=== PATIENT | female | born 1960 | race Hispanic/Latino ===

== ENCOUNTER → 2018-05-26 | Outpatient (CLI) | payer OTHER ==
[~2018-05-26] MED LIST: FLAGYL250 MG PO; HUMALOG100 UNITS/ SQ; JANUMET 50-1,01 EACH PO; LEVAQUIN500 MG PO; LEVEMIR100 UNIT/1 SQ; VASOTEC5 MG PO
== END ==
LOC: MAMMO 08:18
PROVIDERS: ATTEND Internal Medicine
DX: Z12.31 Encounter for screening mammogram for malignant neoplasm of breast (principal)
CPT/HCPCS: 77067

== ENCOUNTER → 2018-07-05 | Outpatient (CLI) | payer OTHER ==
--- NOTE | 2018-07-06 08:46 | Diagnostic Imaging Report ---
#[id number] - MGDXRT #UNILATERAL RIGHT DIGITAL DIAGNOSTIC MAMMOGRAM WITH SPOT COMPRESSION: 07/05/2018 Comparison is made to exam dated: 05/26/2018 mammogram - [facility]. Current study contains 3 films. The calcifications previously described are probably benign. There are scattered fibroglandular elements in the right breast. No significant masses or other findings are seen in the breast. IMPRESSION: PROBABLY BENIGN A follow-up mammogram in 6 months is recommended to demonstrate stability. The patient has been or will be notified of the results. Chai Cruz Jr., D.O. cw/:07/05/2018 16:28:07 [place] Steward: Karmen RODRIGUEZ(R)(M), [facility] letter sent: Followup Recommended Mammogram BI-RADS: 3 Probably benign
== END ==
LOC: MAMMO 09:51
PROVIDERS: ATTEND Internal Medicine
DX: N64.59 Other signs and symptoms in breast (principal)

== ENCOUNTER → 2018-11-21 | Outpatient (CLI) | payer OTHER ==
--- NOTE | 2018-11-21 16:34 | Diagnostic Imaging Report ---
Exam: Bone mineral density study. History: Osteopenia. Comparison: None Discussion: Evaluation of the left hip, and lumbar spine was performed utilizing DEXA Hologic bone densitometer. The study is technically adequate. Left hip total bone mineral density: 0.944gm/cm2, T-score is -0.1, Z-score is 0.7. Left hip femoral neck bone mineral density: 0.833gm/cm2, T-score is -0.3, Z-score is 0.8. Lumbar spine total bone mineral density:0.949gm/cm2, T-score is-0.9, Z-score is 0.4. Impression: 1. Normal bone mineral density of the left hip, fracture risk is not increased. 2. Normal bone mineral density of the lumbar spine, fracture risk is not increased. Least significant change (LSC) for bone mineral density as provided by acute care clinical nurse specialist is 0.023 g/cm2 for lumbar spine and 0.027 g/cm2 for total hip. 10 -year fracture risk per WHO Fracture Risk Assessment Tool (FRAX) for: Not reported because all T-scores at or above -1.0 The patient's fracture risk is compared to an age-matched control. Medical evaluation for secondary causes of low bone bone mineral density may be appropriate. Correlate clinically for the necessity and timing of the next bone mineral density study. Signed by: Dr. Dani Ruvalcaba M.D. on 11/21/2018 4:30 PM
== END ==
LOC: MAMMO 12:37
PROVIDERS: ATTEND Family Medicine
DX: Z12.31 Encounter for screening mammogram for malignant neoplasm of breast (principal); Z78.0 Asymptomatic menopausal state
CPT/HCPCS: 77080

== ENCOUNTER → 2019-01-23 | Outpatient (CLI) | payer OTHER | LOC: MAMMO 12:10 | PROVIDERS: ATTEND Family Medicine | DX: Z12.31 Encounter for screening mammogram for malignant neoplasm of breast (principal) | CPT/HCPCS: 77067 ==

== ENCOUNTER 2020-09-06 11:33 | Inpatient (IN) | payer OTHER, SELFPAY ==
[~2020-09-06] VITALS: Ht 149.9 cm; Wt 57.5 kg
[2020-09-06 12:01] LABS: BASOPHILS % 0.2 % (0.0-1.0); EOSINOPHILS % 0.1 % (0.0-6.0); HEMATOCRIT 43.6 % (34.2-44.1); HEMOGLOBIN 14.4 g/dL (12.0-16.0); LYMPHOCYTES # (AUTO) 0.8 (1.0-3.2); MEAN CORPUSCULAR HEMOGLOBIN 28.6 pg (28-32); MEAN CORPUSCULAR VOLUME 86.7 fL (81-99); MONOCYTES # (AUTO) 0.7 (0.2-0.8); MONOCYTES % 5.4 % (4.4-11.3); PLATELET COUNT 176 x10e3/uL (140-360); RED BLOOD COUNT 5.03 x10e6/uL (3.6-5.1); RED CELL DISTRIBUTION WIDTH 14.6 % (11.7-14.4)
[2020-09-06 12:23] LABS: ALANINE AMINOTRANSFERASE 32 IU/L (0-55); ALBUMIN 3.5 g/dL (3.5-5.0); ALBUMIN/GLOBULIN RATIO 0.7 (0.8-2.0); ALKALINE PHOSPHATASE 131 IU/L (40-150); ANION GAP 21.9 mmol/L (8-16); BLOOD UREA NITROGEN 29 mg/dL (7-26); BUN/CREATININE RATIO 35 (6-25); CALCIUM 9.7 mg/dL (8.4-10.2); CARBON DIOXIDE 20 mmol/L (22-29); CHLORIDE 100 mmol/L (98-107); CREATINE KINASE 44 IU/L (29-168); CREATININE, SERUM 0.82 mg/dL (0.57-1.11); EST GLOMERULAR FILTRATION RATE > 60 ML/MIN (60-); GLUCOSE 312 mg/dL (74-118); POTASSIUM 4.9 mmol/L (3.5-5.1); SODIUM 137 mmol/L (136-145)
[2020-09-06] MEDS ORDERED: DEXTROSE 50% SYRINGE 50 ML IV PRN (14:00)
[2020-09-06] MEDS ORDERED: DEXAMETHASONE4 MG PO (14:04)
[2020-09-06] MEDS ORDERED: STEGLATRO5 MG PO (14:04)
[2020-09-06] MEDS: INSULIN REGULAR, HUMAN 100 UNIT/1 ML 3ML VIAL SQ SCH ×2 (14:04→21:00)
[2020-09-06] MEDS ORDERED: NAPROXEN250 MG PO (14:04)
[2020-09-06] MEDS ORDERED: AZITHROMYCIN250 MG PO (14:04)
[2020-09-06] MEDS ORDERED: ATORVASTATIN CA10 MG PO (14:04)
[2020-09-06 14:45] VITALS: BP 132/69
[2020-09-06 14:50] VITALS: BP 132/69
[2020-09-06 15:09] VITALS: BP 132/69
[2020-09-06] MEDS ORDERED: SODIUM CHLORIDE 0.9% 1000ML 1,000 ML IV ONE (16:00)
[2020-09-06] MEDS: CEFTRIAXONE SOD 1 GM 50 ML IV SCH (16:38)
[2020-09-06] MEDS: ENOXAPARIN SOD INJ 40 MG/0.4 ML SYR SC SCH (16:39)
[2020-09-06] MEDS ORDERED: KETOROLAC TROMETHAMINE 30 MG/ML VIAL IV ONE (16:45)
[2020-09-06] MEDS ORDERED: NON-FORMULARY MEDICATION (Sitagliptin Phos/Metformin Hcl (Janumet 50-1,000 Mg Tablet) 1 TA PO SCH (17:00)
[2020-09-06] MEDS: METFORMIN HCL 500 MG TAB PO SCH (18:00)
[2020-09-06] MEDS ORDERED: REMDESIVIR 200MG/NS 100ML 200 MG in SODIUM CHLORIDE 0.9% 100 ML 100 ML IV ONE (18:00)
[2020-09-06] MEDS: SITAGLIPTIN 100 MG TAB PO SCH (18:00)
[2020-09-06] MEDS: AZITHROMYCIN 500MG/NS 250 ML 250 ML IV SCH (18:30)
[2020-09-06 20:14] VITALS: BP 123/57
[2020-09-06] MEDS: ATORVASTATIN 10 MG TAB PO SCH (21:00)
[2020-09-06] MEDS ORDERED: ZOLPIDEM TARTRATE 5 MG TAB PO PRN (21:00)
[2020-09-06] MEDS: GUAIFENESIN/CODEINE 10 ML CUP PO PRN (22:53)
[2020-09-07] VITALS (8 sets, daily range): BP systolic 114–139; BP diastolic 59–73
[2020-09-07] MEDS ORDERED: METHYLPREDNISOLONE SOD SUCC 125 MG/2ML VIAL IV STA (00:28)
[2020-09-07] MEDS ORDERED: HYDRALAZINE HCL 20 MG/ML VIAL IV PRN (00:30)
[2020-09-07] MEDS ORDERED: ONDANSETRON HCL INJ 2MG/ML 2ML 2 MG/ML VIAL IV PRN (00:30)
[2020-09-07] MEDS: DEXAMETHASONE SOD PHOS 10 MG/1 ML VIAL IV SCH (05:45)
[2020-09-07 06:51] LABS: BASOPHILS % 0.2 % (0.0-1.0); HEMATOCRIT 43.1 % (34.2-44.1); HEMOGLOBIN 13.7 g/dL (12.0-16.0); LYMPHOCYTES # (AUTO) 0.8 (1.0-3.2); MEAN CORPUSCULAR HEMOGLOBIN 28.3 pg (28-32); MEAN CORPUSCULAR HGB CONC 31.8 g/dL (31-35); MONOCYTES # (AUTO) 0.4 (0.2-0.8); NEUTROPHILS # (AUTO) 10.4 (2.1-6.9); NEUTROPHILS % 88.9 % (38.7-80.0); PLATELET COUNT 329 x10e3/uL (140-360); RED BLOOD COUNT 4.84 x10e6/uL (3.6-5.1); RED CELL DISTRIBUTION WIDTH 14.4 % (11.7-14.4)
[2020-09-07 07:14] LABS: ALANINE AMINOTRANSFERASE 23 IU/L (0-55); ALBUMIN 2.9 g/dL (3.5-5.0); ALBUMIN/GLOBULIN RATIO 0.7 (0.8-2.0); ALKALINE PHOSPHATASE 111 IU/L (40-150); ANION GAP 17.5 mmol/L (8-16); BLOOD UREA NITROGEN 31 mg/dL (7-26); BUN/CREATININE RATIO 41 (6-25); CALCIUM 8.9 mg/dL (8.4-10.2); CARBON DIOXIDE 21 mmol/L (22-29); CHLORIDE 104 mmol/L (98-107); CREATININE, SERUM 0.76 mg/dL (0.57-1.11); EST GLOMERULAR FILTRATION RATE > 60 ML/MIN (60-); GLUCOSE 227 mg/dL (74-118); POTASSIUM 4.5 mmol/L (3.5-5.1); SODIUM 138 mmol/L (136-145)
[2020-09-07] MEDS: INSULIN REGULAR, HUMAN 100 UNIT/1 ML 3ML VIAL SQ SCH ×4 (07:30→21:00)
[2020-09-07] MEDS: SITAGLIPTIN 100 MG TAB PO SCH ×2 (08:00→17:56)
[2020-09-07] MEDS: METFORMIN HCL 500 MG TAB PO SCH ×2 (08:00→17:56)
[2020-09-07] MEDS ORDERED: NAPROXEN 250 MG TAB PO SCH (09:00)
[2020-09-07] MEDS: ERTUGLIFLOZIN PIDOLATE 5 MG PO SCH (09:00)
[2020-09-07] MEDS: ENALAPRIL MALEATE 5 MG TAB PO SCH (09:07)
[2020-09-07] MEDS ORDERED: KETOROLAC TROMETHAMINE 30 MG/ML VIAL IV ONE (10:30)
[2020-09-07] MEDS: REMDESIVIR 100MG/NS 100ML 100 MG IV SCH (13:44)
[2020-09-07] MEDS: CEFTRIAXONE SOD 1 GM 50 ML IV SCH (17:55)
[2020-09-07] MEDS: ENOXAPARIN SOD INJ 40 MG/0.4 ML SYR SC SCH (17:56)
[2020-09-07] MEDS: AZITHROMYCIN 500MG/NS 250 ML 250 ML IV SCH (18:34)
[2020-09-07] MEDS: GUAIFENESIN/CODEINE 10 ML CUP PO PRN (21:00)
[2020-09-07] MEDS: NAPROXEN 250 MG TAB PO PRN (21:00)
[2020-09-07] MEDS: ATORVASTATIN 10 MG TAB PO SCH (21:00)
[2020-09-07] MEDS ORDERED: SALINE 0.65% NAS SOLN 1 SPRAY BTL PRN (21:30)
[2020-09-08] VITALS (8 sets, daily range): BP systolic 107–125; BP diastolic 55–71
[2020-09-08] MEDS: DEXAMETHASONE SOD PHOS 10 MG/1 ML VIAL IV SCH (05:49)
[2020-09-08] MEDS: METFORMIN HCL 500 MG TAB PO SCH ×2 (09:54→17:34)
[2020-09-08] MEDS: SITAGLIPTIN 100 MG TAB PO SCH ×2 (09:54→17:34)
[2020-09-08] MEDS: ERTUGLIFLOZIN PIDOLATE 5 MG PO SCH (09:54)
[2020-09-08] MEDS: ENALAPRIL MALEATE 5 MG TAB PO SCH (09:55)
[2020-09-08] MEDS: INSULIN REGULAR, HUMAN 100 UNIT/1 ML 3ML VIAL SQ SCH ×4 (13:40→21:00)
[2020-09-08] MEDS: REMDESIVIR 100MG/NS 100ML 100 MG IV SCH (14:07)
[2020-09-08] MEDS: ENOXAPARIN SOD INJ 40 MG/0.4 ML SYR SC SCH (17:34)
[2020-09-08] MEDS: CEFTRIAXONE SOD 1 GM 50 ML IV SCH (17:34)
[2020-09-08] MEDS: AZITHROMYCIN 500MG/NS 250 ML 250 ML IV SCH (18:38)
[2020-09-08] MEDS: NAPROXEN 250 MG TAB PO PRN (21:01)
[2020-09-08] MEDS: ATORVASTATIN 10 MG TAB PO SCH (21:01)
[2020-09-09] VITALS (9 sets, daily range): BP systolic 106–133; BP diastolic 61–77
[2020-09-09] MEDS: DEXAMETHASONE SOD PHOS 10 MG/1 ML VIAL IV SCH (05:40)
[2020-09-09 06:06] LABS: BASOPHILS % 0.3 % (0.0-1.0); EOSINOPHILS % 0.2 % (0.0-6.0); HEMATOCRIT 43.4 % (34.2-44.1); HEMOGLOBIN 14.3 g/dL (12.0-16.0); LYMPHOCYTES # (AUTO) 1.1 (1.0-3.2); LYMPHOCYTES % 8.5 % (18.0-39.1); MEAN CORPUSCULAR HEMOGLOBIN 28.6 pg (28-32); MEAN CORPUSCULAR HGB CONC 32.9 g/dL (31-35); MEAN CORPUSCULAR VOLUME 86.8 fL (81-99); MONOCYTES # (AUTO) 0.3 (0.2-0.8); MONOCYTES % 2.7 % (4.4-11.3); NEUTROPHILS # (AUTO) 10.8 (2.1-6.9); PLATELET COUNT 326 x10e3/uL (140-360); RED CELL DISTRIBUTION WIDTH 14.1 % (11.7-14.4)
[2020-09-09 06:42] LABS: ALANINE AMINOTRANSFERASE 17 IU/L (0-55); ALBUMIN 2.6 g/dL (3.5-5.0); ALBUMIN/GLOBULIN RATIO 0.7 (0.8-2.0); ALKALINE PHOSPHATASE 108 IU/L (40-150); ANION GAP 16.9 mmol/L (8-16); BLOOD UREA NITROGEN 27 mg/dL (7-26); BUN/CREATININE RATIO 46 (6-25); CALCIUM 8.4 mg/dL (8.4-10.2); CARBON DIOXIDE 21 mmol/L (22-29); CHLORIDE 103 mmol/L (98-107); CREATININE, SERUM 0.59 mg/dL (0.57-1.11); EST GLOMERULAR FILTRATION RATE > 60 ML/MIN (60-); GLUCOSE 174 mg/dL (74-118); POTASSIUM 3.9 mmol/L (3.5-5.1); SODIUM 137 mmol/L (136-145)
[2020-09-09] MEDS: INSULIN REGULAR, HUMAN 100 UNIT/1 ML 3ML VIAL SQ SCH ×4 (07:30→20:41)
[2020-09-09] MEDS: ERTUGLIFLOZIN PIDOLATE 5 MG PO SCH (09:00)
[2020-09-09] MEDS: SITAGLIPTIN 100 MG TAB PO SCH ×2 (09:33→17:29)
[2020-09-09] MEDS: METFORMIN HCL 500 MG TAB PO SCH ×2 (09:33→17:28)
[2020-09-09] MEDS: ENALAPRIL MALEATE 5 MG TAB PO SCH (09:33)
[2020-09-09] MEDS ORDERED: SODIUM CHLORIDE 0.9% 250ML 250 ML ONE (13:12)
[2020-09-09] MEDS: GUAIFENESIN/CODEINE 10 ML CUP PO PRN (13:19)
[2020-09-09] MEDS: REMDESIVIR 100MG/NS 100ML 100 MG IV SCH (14:20)
[2020-09-09] MEDS: CEFTRIAXONE SOD 1 GM 50 ML IV SCH (16:30)
[2020-09-09] MEDS ORDERED: HYDROCODONE/APAP 5MG-325MG TAB PO PRN (17:15)
[2020-09-09] MEDS: AZITHROMYCIN 500MG/NS 250 ML 250 ML IV SCH (17:29)
[2020-09-09] MEDS: ENOXAPARIN SOD INJ 40 MG/0.4 ML SYR SC SCH (17:29)
[2020-09-09 20:38] LABS: BASOPHILS % 0.2 % (0.0-1.0); EOSINOPHILS % 0.1 % (0.0-6.0); HEMATOCRIT 44.7 % (34.2-44.1); HEMOGLOBIN 14.8 g/dL (12.0-16.0); LYMPHOCYTES # (AUTO) 1.2 (1.0-3.2); LYMPHOCYTES % 9.1 % (18.0-39.1); MEAN CORPUSCULAR HEMOGLOBIN 28.5 pg (28-32); MEAN CORPUSCULAR HGB CONC 33.1 g/dL (31-35); MONOCYTES # (AUTO) 0.3 (0.2-0.8); MONOCYTES % 2.4 % (4.4-11.3); NEUTROPHILS # (AUTO) 11.1 (2.1-6.9); NEUTROPHILS % 86.9 % (38.7-80.0); PLATELET COUNT 374 x10e3/uL (140-360); RED CELL DISTRIBUTION WIDTH 14.2 % (11.7-14.4)
[2020-09-09] MEDS: OXYMETAZOLINE HCL 0.05% NAS 1 SPRAY BTL SCH (20:43)
[2020-09-09] MEDS: ATORVASTATIN 10 MG TAB PO SCH (20:44)
[2020-09-09 20:58] LABS: ALANINE AMINOTRANSFERASE 20 IU/L (0-55); ALBUMIN 2.8 g/dL (3.5-5.0); ALBUMIN/GLOBULIN RATIO 0.6 (0.8-2.0); ALKALINE PHOSPHATASE 138 IU/L (40-150); ANION GAP 17.2 mmol/L (8-16); BLOOD UREA NITROGEN 26 mg/dL (7-26); BUN/CREATININE RATIO 35 (6-25); CALCIUM 9.4 mg/dL (8.4-10.2); CARBON DIOXIDE 23 mmol/L (22-29); CHLORIDE 100 mmol/L (98-107); CREATINE KINASE 43 IU/L (29-168); CREATININE, SERUM 0.75 mg/dL (0.57-1.11); EST GLOMERULAR FILTRATION RATE > 60 ML/MIN (60-); GLUCOSE 167 mg/dL (74-118); POTASSIUM 5.2 mmol/L (3.5-5.1); SODIUM 135 mmol/L (136-145)
[2020-09-09] MEDS ORDERED: REMDESIVIR 100MG/NS 100ML 100 MG in SODIUM CHLORIDE 0.9% 100 ML 100 ML IV SCH (21:30)
[2020-09-10] VITALS (21 sets, daily range): BP systolic 101–156; BP diastolic 60–120
[2020-09-10 05:23] LABS: BASOPHILS % 0.2 % (0.0-1.0); EOSINOPHILS % 0.3 % (0.0-6.0); HEMATOCRIT 41.9 % (34.2-44.1); HEMOGLOBIN 14.1 g/dL (12.0-16.0); LYMPHOCYTES # (AUTO) 1.1 (1.0-3.2); LYMPHOCYTES % 7.4 % (18.0-39.1); MEAN CORPUSCULAR HEMOGLOBIN 29.1 pg (28-32); MEAN CORPUSCULAR HGB CONC 33.7 g/dL (31-35); MEAN CORPUSCULAR VOLUME 86.6 fL (81-99); MONOCYTES # (AUTO) 0.3 (0.2-0.8); NEUTROPHILS # (AUTO) 12.8 (2.1-6.9); NEUTROPHILS % 88.6 % (38.7-80.0); PLATELET COUNT 311 x10e3/uL (140-360); RED BLOOD COUNT 4.84 x10e6/uL (3.6-5.1); RED CELL DISTRIBUTION WIDTH 14.2 % (11.7-14.4)
[2020-09-10 05:37] LABS: ALANINE AMINOTRANSFERASE 17 IU/L (0-55); ALBUMIN 2.6 g/dL (3.5-5.0); ALBUMIN/GLOBULIN RATIO 0.6 (0.8-2.0); ALKALINE PHOSPHATASE 113 IU/L (40-150); BLOOD UREA NITROGEN 24 mg/dL (7-26); BUN/CREATININE RATIO 41 (6-25); CALCIUM 8.6 mg/dL (8.4-10.2); CARBON DIOXIDE 21 mmol/L (22-29); CHLORIDE 98 mmol/L (98-107); CREATININE, SERUM 0.58 mg/dL (0.57-1.11); EST GLOMERULAR FILTRATION RATE > 60 ML/MIN (60-); GLUCOSE 198 mg/dL (74-118); SODIUM 134 mmol/L (136-145)
[2020-09-10] MEDS: DEXAMETHASONE SOD PHOS 10 MG/1 ML VIAL IV SCH (05:57)
[2020-09-10] MEDS: OXYMETAZOLINE HCL 0.05% NAS 1 SPRAY BTL SCH ×2 (06:00→17:59)
[2020-09-10] MEDS: SITAGLIPTIN 100 MG TAB PO SCH ×2 (08:00→17:58)
[2020-09-10] MEDS: ERTUGLIFLOZIN PIDOLATE 5 MG PO SCH (08:06)
[2020-09-10] MEDS: METFORMIN HCL 500 MG TAB PO SCH ×2 (08:06→17:58)
[2020-09-10] MEDS: INSULIN REGULAR, HUMAN 100 UNIT/1 ML 3ML VIAL SQ SCH ×4 (08:12→21:08)
[2020-09-10] MEDS: ENALAPRIL MALEATE 5 MG TAB PO SCH (09:00)
[2020-09-10] MEDS: REMDESIVIR 100MG/NS 100ML 100 MG IV SCH (14:00)
[2020-09-10] MEDS ORDERED: TRAMADOL HCL 50 MG TAB PO PRN (16:30)
[2020-09-10] MEDS: CEFTRIAXONE SOD 1 GM 50 ML IV SCH (17:58)
[2020-09-10] MEDS: ENOXAPARIN SOD INJ 40 MG/0.4 ML SYR SC SCH (17:58)
[2020-09-10] MEDS: AZITHROMYCIN 500MG/NS 250 ML 250 ML IV SCH (17:58)
[2020-09-10] MEDS: ATORVASTATIN 10 MG TAB PO SCH (21:09)
[2020-09-10] MEDS: ACETAMINOPHEN 325 MG TAB PO PRN (22:57)
[2020-09-11] VITALS (25 sets, daily range): BP systolic 97–129; BP diastolic 20–96
[2020-09-11] MEDS: ACETAMINOPHEN 325 MG TAB PO PRN ×3 (04:07→23:35)
[2020-09-11 05:34] LABS: BASOPHILS % 0.3 % (0.0-1.0); EOSINOPHILS # (AUTO) 0.1 (0.0-0.4); EOSINOPHILS % 0.6 % (0.0-6.0); HEMATOCRIT 41.3 % (34.2-44.1); HEMOGLOBIN 13.8 g/dL (12.0-16.0); LYMPHOCYTES # (AUTO) 0.7 (1.0-3.2); LYMPHOCYTES % 5.1 % (18.0-39.1); MEAN CORPUSCULAR HEMOGLOBIN 28.5 pg (28-32); MEAN CORPUSCULAR HGB CONC 33.4 g/dL (31-35); MEAN CORPUSCULAR VOLUME 85.3 fL (81-99); MONOCYTES # (AUTO) 0.3 (0.2-0.8); MONOCYTES % 2.3 % (4.4-11.3); NEUTROPHILS # (AUTO) 12.5 (2.1-6.9); NEUTROPHILS % 90.3 % (38.7-80.0); RED BLOOD COUNT 4.84 x10e6/uL (3.6-5.1); RED CELL DISTRIBUTION WIDTH 14.1 % (11.7-14.4)
[2020-09-11 05:35] LABS: PLATELET COUNT 166 x10e3/uL (140-360)
[2020-09-11 05:37] LABS: ALANINE AMINOTRANSFERASE 12 IU/L (0-55); ALBUMIN 2.5 g/dL (3.5-5.0); ALBUMIN/GLOBULIN RATIO 0.6 (0.8-2.0); ALKALINE PHOSPHATASE 106 IU/L (40-150); ANION GAP 18.1 mmol/L (8-16); BLOOD UREA NITROGEN 27 mg/dL (7-26); BUN/CREATININE RATIO 46 (6-25); CALCIUM 8.5 mg/dL (8.4-10.2); CARBON DIOXIDE 22 mmol/L (22-29); CHLORIDE 98 mmol/L (98-107); CREATININE, SERUM 0.59 mg/dL (0.57-1.11); EST GLOMERULAR FILTRATION RATE > 60 ML/MIN (60-); GLUCOSE 196 mg/dL (74-118); POTASSIUM 4.1 mmol/L (3.5-5.1); SODIUM 134 mmol/L (136-145)
[2020-09-11] MEDS: DEXAMETHASONE SOD PHOS 10 MG/1 ML VIAL IV SCH (06:00)
[2020-09-11] MEDS: OXYMETAZOLINE HCL 0.05% NAS 1 SPRAY BTL SCH ×2 (06:00→18:16)
[2020-09-11] MEDS: METFORMIN HCL 500 MG TAB PO SCH ×2 (08:29→17:00)
[2020-09-11] MEDS: ENALAPRIL MALEATE 5 MG TAB PO SCH (08:29)
[2020-09-11] MEDS: SITAGLIPTIN 100 MG TAB PO SCH ×2 (08:30→17:00)
[2020-09-11] MEDS: INSULIN REGULAR, HUMAN 100 UNIT/1 ML 3ML VIAL SQ SCH ×4 (08:42→20:07)
[2020-09-11] MEDS: ERTUGLIFLOZIN PIDOLATE 5 MG PO SCH (08:42)
[2020-09-11] MEDS ORDERED: WATER STERILE 10 ML VIAL ONE (13:01)
[2020-09-11] MEDS ORDERED: SUCCINYLCHOLINE CHLORIDE 20 MG/ML 10ML VIAL ONE (13:01)
[2020-09-11] MEDS ORDERED: VECURONIUM BROMIDE FOR INJ 20 MG VIAL ONE (13:01)
[2020-09-11] MEDS ORDERED: MIDAZOLAM HCL 2 MG/2 ML VIAL ONE (13:01)
[2020-09-11] MEDS ORDERED: ETOMIDATE 2 MG/ML 10 ML INJ IV ONE (13:01)
[2020-09-11] MEDS: CEFTRIAXONE SOD 1 GM 50 ML IV SCH (18:15)
[2020-09-11] MEDS: AZITHROMYCIN 500MG/NS 250 ML 250 ML IV SCH (18:45)
[2020-09-11] MEDS: ENOXAPARIN SOD INJ 40 MG/0.4 ML SYR SC SCH (18:45)
[2020-09-11] MEDS: GUAIFENESIN/CODEINE 10 ML CUP PO PRN (19:31)
[2020-09-11] MEDS: ATORVASTATIN 10 MG TAB PO SCH (20:14)
[2020-09-12] VITALS (24 sets, daily range): BP systolic 101–125; BP diastolic 52–100
[2020-09-12] MEDS: NAPROXEN 250 MG TAB PO PRN (00:35)
[2020-09-12] MEDS: OXYMETAZOLINE HCL 0.05% NAS 1 SPRAY BTL SCH ×2 (05:37→18:54)
[2020-09-12] MEDS: DEXAMETHASONE SOD PHOS 10 MG/1 ML VIAL IV SCH (05:37)
[2020-09-12] MEDS: INSULIN REGULAR, HUMAN 100 UNIT/1 ML 3ML VIAL SQ SCH ×4 (08:00→20:29)
[2020-09-12] MEDS: ERTUGLIFLOZIN PIDOLATE 5 MG PO SCH (09:00)
[2020-09-12] MEDS: ENALAPRIL MALEATE 5 MG TAB PO SCH (10:29)
[2020-09-12] MEDS: METFORMIN HCL 500 MG TAB PO SCH ×2 (10:31→17:00)
[2020-09-12] MEDS: SITAGLIPTIN 100 MG TAB PO SCH ×2 (10:31→17:00)
[2020-09-12] MEDS: GUAIFENESIN/CODEINE 10 ML CUP PO PRN ×2 (17:38→22:00)
[2020-09-12] MEDS: ENOXAPARIN SOD INJ 40 MG/0.4 ML SYR SC SCH (18:54)
[2020-09-12] MEDS: ACETAMINOPHEN 325 MG/10 ML UDC NG PRN (18:55)
[2020-09-12] MEDS: ATORVASTATIN 10 MG TAB PO SCH (20:36)
[2020-09-13] VITALS (21 sets, daily range): BP systolic 98–126; BP diastolic 56–72
[2020-09-13] MEDS: DEXMEDETOMIDINE 200MCG/NS 50ML 50 ML IV PRN ×3 (03:28→16:36)
[2020-09-13 06:03] LABS: BASOPHILS % 0.1 % (0.0-1.0); EOSINOPHILS # (AUTO) 0.1 (0.0-0.4); EOSINOPHILS % 0.6 % (0.0-6.0); HEMATOCRIT 39.7 % (34.2-44.1); HEMOGLOBIN 13.2 g/dL (12.0-16.0); LYMPHOCYTES # (AUTO) 0.6 (1.0-3.2); LYMPHOCYTES % 4.2 % (18.0-39.1); MEAN CORPUSCULAR HEMOGLOBIN 28.4 pg (28-32); MEAN CORPUSCULAR HGB CONC 33.2 g/dL (31-35); MEAN CORPUSCULAR VOLUME 85.6 fL (81-99); MONOCYTES # (AUTO) 0.3 (0.2-0.8); MONOCYTES % 1.8 % (4.4-11.3); NEUTROPHILS # (AUTO) 13.5 (2.1-6.9); NEUTROPHILS % 92.3 % (38.7-80.0); RED BLOOD COUNT 4.64 x10e6/uL (3.6-5.1); RED CELL DISTRIBUTION WIDTH 14.5 % (11.7-14.4)
[2020-09-13 06:04] LABS: PLATELET COUNT 91 x10e3/uL (140-360)
[2020-09-13 06:10] LABS: ALANINE AMINOTRANSFERASE 9 IU/L (0-55); ALBUMIN 2.1 g/dL (3.5-5.0); ALBUMIN/GLOBULIN RATIO 0.5 (0.8-2.0); ALKALINE PHOSPHATASE 143 IU/L (40-150); ANION GAP 17.7 mmol/L (8-16); BLOOD UREA NITROGEN 24 mg/dL (7-26); BUN/CREATININE RATIO 46 (6-25); CALCIUM 8.5 mg/dL (8.4-10.2); CARBON DIOXIDE 23 mmol/L (22-29); CHLORIDE 98 mmol/L (98-107); CREATININE, SERUM 0.52 mg/dL (0.57-1.11); EST GLOMERULAR FILTRATION RATE > 60 ML/MIN (60-); GLUCOSE 213 mg/dL (74-118); POTASSIUM 4.7 mmol/L (3.5-5.1); SODIUM 134 mmol/L (136-145)
[2020-09-13] MEDS: DEXAMETHASONE SOD PHOS 10 MG/1 ML VIAL IV SCH (06:28)
[2020-09-13] MEDS: OXYMETAZOLINE HCL 0.05% NAS 1 SPRAY BTL SCH ×2 (06:28→16:35)
[2020-09-13] MEDS: INSULIN REGULAR, HUMAN 100 UNIT/1 ML 3ML VIAL SQ SCH ×4 (07:30→20:57)
[2020-09-13] MEDS: SITAGLIPTIN 100 MG TAB PO SCH ×2 (08:41→16:35)
[2020-09-13] MEDS: ENALAPRIL MALEATE 5 MG TAB PO SCH (08:41)
[2020-09-13] MEDS: METFORMIN HCL 500 MG TAB PO SCH ×2 (08:41→16:35)
[2020-09-13] MEDS: ERTUGLIFLOZIN PIDOLATE 5 MG PO SCH (08:41)
[2020-09-13] MEDS: FONDAPARINUX SODIUM 2.5 MG/0.5 ML SYR SQ SCH (16:35)
[2020-09-13] MEDS: ACETAMINOPHEN 325 MG/10 ML UDC NG PRN (21:40)
[2020-09-14] VITALS (16 sets, daily range): BP systolic 72–122; BP diastolic 48–74
[2020-09-14] MEDS: DEXMEDETOMIDINE 200MCG/NS 50ML 50 ML IV PRN ×2 (01:02→07:00)
[2020-09-14] MEDS: ACETAMINOPHEN 325 MG/10 ML UDC NG PRN (05:30)
[2020-09-14] MEDS: OXYMETAZOLINE HCL 0.05% NAS 1 SPRAY BTL SCH (05:43)
[2020-09-14] MEDS: DEXAMETHASONE SOD PHOS 10 MG/1 ML VIAL IV SCH (05:43)
[2020-09-14 06:09] LABS: ALANINE AMINOTRANSFERASE 14 IU/L (0-55); ALBUMIN 2.1 g/dL (3.5-5.0); ALBUMIN/GLOBULIN RATIO 0.5 (0.8-2.0); ALKALINE PHOSPHATASE 154 IU/L (40-150); ANION GAP 16.6 mmol/L (8-16); BLOOD UREA NITROGEN 30 mg/dL (7-26); BUN/CREATININE RATIO 50 (6-25); CARBON DIOXIDE 23 mmol/L (22-29); CHLORIDE 98 mmol/L (98-107); EST GLOMERULAR FILTRATION RATE > 60 ML/MIN (60-); GLUCOSE 218 mg/dL (74-118); POTASSIUM 4.6 mmol/L (3.5-5.1); SODIUM 133 mmol/L (136-145)
[2020-09-14] MEDS: INSULIN REGULAR, HUMAN 100 UNIT/1 ML 3ML VIAL SQ SCH ×4 (07:30→21:00)
[2020-09-14] MEDS: SITAGLIPTIN 100 MG TAB PO SCH (08:00)
[2020-09-14] MEDS: METFORMIN HCL 500 MG TAB PO SCH (08:00)
[2020-09-14] MEDS: ENALAPRIL MALEATE 5 MG TAB PO SCH (08:04)
[2020-09-14] MEDS: ERTUGLIFLOZIN PIDOLATE 5 MG PO SCH (08:04)
[2020-09-14] MEDS ORDERED: ACETAMINOPHEN 1000 MG/100 ML IV NR (10:09)
[2020-09-14] MEDS: ROCURONIUM BROMIDE 1,250 MG in SODIUM CHLORIDE 0.9% 250ML 125 ML IV SCH (12:14)
[2020-09-14] MEDS: MIDAZOLAM HCL 5MG/ML 10ML VIAL 100 ML IV PRN (12:15)
[2020-09-14] MEDS: FENTANYL 2000MCG/NS 250 250 ML IV PRN (12:15)
[2020-09-14] MEDS ORDERED: LACTATED RINGER'S 1,000 ML INJ ONE (12:15)
[2020-09-14] MEDS ORDERED: SODIUM CHLORIDE 0.9% 1000ML 1,000 ML ONE (12:25)
[2020-09-14] MEDS ORDERED: ALTEPLASE RECOMBINANT 2 MG/2 ML VIAL IV PRN (12:45)
[2020-09-14] MEDS: MEROPENEM 1GM 100 ML IV SCH ×2 (12:54→21:15)
[2020-09-14] MEDS: VANCOMYCIN 1GM/NS 250 ML 250 ML IV SCH (12:54)
[2020-09-14] MEDS ORDERED: FONDAPARINUX SODIUM 7.5 MG/0.6 ML SYR SQ ONE (15:30)
[2020-09-14] MEDS: FONDAPARINUX SODIUM 2.5 MG/0.5 ML SYR SQ SCH (16:26)
[2020-09-14 16:40] LABS: ABG HCO3 24 mmol/L (22-26); ABG PCO2 48 mmHg (35-45); ABG PH 7.31 (7.35-7.45); ABG PO2 95 mmHg (80-105); ABG TCO2 25
[2020-09-14] MEDS ORDERED: ROCURONIUM BROMIDE 250 ML IV ONE (19:52)
[2020-09-15] VITALS (23 sets, daily range): BP systolic 64–112; BP diastolic 39–64
[2020-09-15] MEDS: VANCOMYCIN 1GM/NS 250 ML 250 ML IV SCH ×3 (01:34→23:00)
[2020-09-15] MEDS: MEROPENEM 1GM 100 ML IV SCH ×3 (04:31→20:22)
[2020-09-15] MEDS: ROCURONIUM BROMIDE 1,250 MG in SODIUM CHLORIDE 0.9% 250ML 125 ML IV SCH (05:55)
[2020-09-15] MEDS ORDERED: ROCURONIUM BROMIDE 250 ML IV ONE (06:00)
[2020-09-15 06:18] LABS: BASOPHILS % 0.2 % (0.0-1.0); EOSINOPHILS # (AUTO) 0.2 (0.0-0.4); EOSINOPHILS % 0.9 % (0.0-6.0); HEMATOCRIT 42.3 % (34.2-44.1); HEMOGLOBIN 13.7 g/dL (12.0-16.0); LYMPHOCYTES # (AUTO) 0.7 (1.0-3.2); LYMPHOCYTES % 3.9 % (18.0-39.1); MEAN CORPUSCULAR HEMOGLOBIN 28.7 pg (28-32); MEAN CORPUSCULAR HGB CONC 32.4 g/dL (31-35); MEAN CORPUSCULAR VOLUME 88.7 fL (81-99); MONOCYTES # (AUTO) 0.4 (0.2-0.8); MONOCYTES % 2.5 % (4.4-11.3); NEUTROPHILS # (AUTO) 15.9 (2.1-6.9); NEUTROPHILS % 91.4 % (38.7-80.0); PLATELET COUNT 76 x10e3/uL (140-360); RED BLOOD COUNT 4.77 x10e6/uL (3.6-5.1); RED CELL DISTRIBUTION WIDTH 15.2 % (11.7-14.4)
[2020-09-15 06:41] LABS: ALANINE AMINOTRANSFERASE 11 IU/L (0-55); ALBUMIN 1.8 g/dL (3.5-5.0); ALBUMIN/GLOBULIN RATIO 0.4 (0.8-2.0); ALKALINE PHOSPHATASE 150 IU/L (40-150); ANION GAP 17.5 mmol/L (8-16); BLOOD UREA NITROGEN 23 mg/dL (7-26); BUN/CREATININE RATIO 44 (6-25); CALCIUM 8.4 mg/dL (8.4-10.2); CARBON DIOXIDE 21 mmol/L (22-29); CHLORIDE 102 mmol/L (98-107); CREATININE, SERUM 0.52 mg/dL (0.57-1.11); EST GLOMERULAR FILTRATION RATE > 60 ML/MIN (60-); GLUCOSE 199 mg/dL (74-118); POTASSIUM 4.5 mmol/L (3.5-5.1); SODIUM 136 mmol/L (136-145)
[2020-09-15] MEDS: DEXAMETHASONE SOD PHOS 10 MG/1 ML VIAL IV SCH (06:45)
[2020-09-15] MEDS: INSULIN REGULAR, HUMAN 100 UNIT/1 ML 3ML VIAL SQ SCH (07:30)
[2020-09-15] MEDS: ERTUGLIFLOZIN PIDOLATE 5 MG PO SCH (07:30)
[2020-09-15] MEDS: ENALAPRIL MALEATE 5 MG TAB PO SCH (07:30)
[2020-09-15] MEDS ORDERED: DEXTROSE 50% SYRINGE 50 ML IV PRN (10:15)
[2020-09-15] MEDS ORDERED: LACTATED RINGER'S 1,000 ML INJ ONE (10:15)
[2020-09-15 10:55] LABS: ABG HCO3 21 mmol/L (22-26); ABG PCO2 46 mmHg (35-45); ABG PH 7.27 (7.35-7.45); ABG PO2 132 mmHg (80-105); ABG TCO2 22
[2020-09-15] MEDS: FENTANYL 2000MCG/NS 250 250 ML IV PRN (12:30)
[2020-09-15] MEDS: NOREPINEPHRINE 8 MG/D5W 250 ML 250 ML IV SCH (15:30)
[2020-09-15] MEDS ORDERED: FONDAPARINUX SODIUM 10 MG/0.8 ML SYR SQ SCH (17:00)
[2020-09-15] MEDS: FONDAPARINUX SODIUM 7.5 MG/0.6 ML SYR SQ SCH (17:51)
[2020-09-15] MEDS: FONDAPARINUX SODIUM 2.5 MG/0.5 ML SYR SQ SCH (17:51)
[2020-09-15] MEDS: INSULIN REGULAR, HUMAN 3ML VL 100 UNIT in SODIUM CHLORIDE 0.9% 100 ML 99 ML IV SCH ×2 (20:25)
[2020-09-15] MEDS: ACETAMINOPHEN 325 MG/10 ML UDC NG PRN (22:48)
[2020-09-16] VITALS (27 sets, daily range): BP systolic 95–144; BP diastolic 47–117
[2020-09-16] MEDS: MEROPENEM 1GM 100 ML IV SCH ×3 (04:00→20:13)
[2020-09-16 05:39] LABS: BASOPHILS % 0.1 % (0.0-1.0); EOSINOPHILS # (AUTO) 0.2 (0.0-0.4); EOSINOPHILS % 0.8 % (0.0-6.0); HEMATOCRIT 37.4 % (34.2-44.1); HEMOGLOBIN 11.8 g/dL (12.0-16.0); LYMPHOCYTES # (AUTO) 1.4 (1.0-3.2); LYMPHOCYTES % 6.2 % (18.0-39.1); MEAN CORPUSCULAR HEMOGLOBIN 28.4 pg (28-32); MEAN CORPUSCULAR HGB CONC 31.6 g/dL (31-35); MEAN CORPUSCULAR VOLUME 90.1 fL (81-99); MONOCYTES # (AUTO) 0.6 (0.2-0.8); MONOCYTES % 2.6 % (4.4-11.3); NEUTROPHILS # (AUTO) 19.5 (2.1-6.9); NEUTROPHILS % 88.8 % (38.7-80.0); PLATELET COUNT 78 x10e3/uL (140-360); RED BLOOD COUNT 4.15 x10e6/uL (3.6-5.1); RED CELL DISTRIBUTION WIDTH 15.5 % (11.7-14.4)
[2020-09-16] MEDS: DEXAMETHASONE SOD PHOS 10 MG/1 ML VIAL IV SCH (06:00)
[2020-09-16 06:05] LABS: ALANINE AMINOTRANSFERASE 13 IU/L (0-55); ALBUMIN 1.5 g/dL (3.5-5.0); ALBUMIN/GLOBULIN RATIO 0.4 (0.8-2.0); ALKALINE PHOSPHATASE 121 IU/L (40-150); ANION GAP 16.4 mmol/L (8-16); BLOOD UREA NITROGEN 26 mg/dL (7-26); BUN/CREATININE RATIO 42 (6-25); CALCIUM 8.4 mg/dL (8.4-10.2); CARBON DIOXIDE 23 mmol/L (22-29); CHLORIDE 103 mmol/L (98-107); CREATININE, SERUM 0.62 mg/dL (0.57-1.11); EST GLOMERULAR FILTRATION RATE > 60 ML/MIN (60-); GLUCOSE 222 mg/dL (74-118); POTASSIUM 4.4 mmol/L (3.5-5.1); SODIUM 138 mmol/L (136-145)
[2020-09-16] MEDS ORDERED: ROCURONIUM BROMIDE 250 ML IV ONE (06:51)
[2020-09-16] MEDS: ERTUGLIFLOZIN PIDOLATE 5 MG PO SCH (08:05)
[2020-09-16] MEDS: ENALAPRIL MALEATE 5 MG TAB PO SCH (09:39)
[2020-09-16 09:43] LABS: ABG PCO2 37 mmHg (35-45); ABG PH 7.43 (7.35-7.45); ABG PO2 89 mmHg (80-105)
[2020-09-16 09:44] LABS: ABG HCO3 25 mmol/L (22-26); ABG TCO2 26
[2020-09-16] MEDS: VANCOMYCIN 1GM/NS 250 ML 250 ML IV SCH ×2 (12:40→14:00)
[2020-09-16] MEDS: FENTANYL 2000MCG/NS 250 250 ML IV PRN (13:39)
[2020-09-16] MEDS: MIDAZOLAM HCL 5MG/ML 10ML VIAL 100 ML IV PRN ×2 (14:07→22:46)
[2020-09-16] MEDS ORDERED: FONDAPARINUX SODIUM 10 MG/0.8 ML SYR SQ SCH (17:00)
[2020-09-16] MEDS: FONDAPARINUX SODIUM 2.5 MG/0.5 ML SYR SQ SCH (18:16)
[2020-09-16] MEDS: FONDAPARINUX SODIUM 7.5 MG/0.6 ML SYR SQ SCH (18:16)
[2020-09-16] MEDS ORDERED: SODIUM CHLORIDE 0.9% 1000ML 1,000 ML ONE (19:12)
[2020-09-16] MEDS: ROCURONIUM BROMIDE 1,250 MG in SODIUM CHLORIDE 0.9% 250ML 125 ML IV SCH (19:46)
[2020-09-16] MEDS: INSULIN REGULAR, HUMAN 3ML VL 100 UNIT in SODIUM CHLORIDE 0.9% 100 ML 99 ML IV SCH ×2 (20:55)
[2020-09-17] VITALS (25 sets, daily range): BP systolic 94–139; BP diastolic 51–111
[2020-09-17] MEDS: FENTANYL 2000MCG/NS 250 250 ML IV PRN ×2 (00:27→19:24)
[2020-09-17] MEDS: INSULIN REGULAR, HUMAN 3ML VL 100 UNIT in SODIUM CHLORIDE 0.9% 100 ML 99 ML IV SCH ×4 (00:28→04:06)
[2020-09-17] MEDS: NOREPINEPHRINE 8 MG/D5W 250 ML 250 ML IV SCH (00:29)
[2020-09-17] MEDS: VANCOMYCIN 1GM/NS 250 ML 250 ML IV SCH ×2 (02:18→15:41)
[2020-09-17] MEDS: MEROPENEM 1GM 100 ML IV SCH ×3 (04:09→20:42)
[2020-09-17 05:24] LABS: BASOPHILS % 0.1 % (0.0-1.0); HEMATOCRIT 34.9 % (34.2-44.1); LYMPHOCYTES # (AUTO) 0.8 (1.0-3.2); LYMPHOCYTES % 5.6 % (18.0-39.1); MEAN CORPUSCULAR HEMOGLOBIN 28.5 pg (28-32); MEAN CORPUSCULAR HGB CONC 31.5 g/dL (31-35); MEAN CORPUSCULAR VOLUME 90.4 fL (81-99); MONOCYTES # (AUTO) 0.5 (0.2-0.8); MONOCYTES % 3.5 % (4.4-11.3); NEUTROPHILS # (AUTO) 12.6 (2.1-6.9); NEUTROPHILS % 89.5 % (38.7-80.0); PLATELET COUNT 82 x10e3/uL (140-360); RED BLOOD COUNT 3.86 x10e6/uL (3.6-5.1); RED CELL DISTRIBUTION WIDTH 15.4 % (11.7-14.4)
[2020-09-17 05:49] LABS: ALANINE AMINOTRANSFERASE 22 IU/L (0-55); ALBUMIN 1.6 g/dL (3.5-5.0); ALBUMIN/GLOBULIN RATIO 0.4 (0.8-2.0); ALKALINE PHOSPHATASE 188 IU/L (40-150); ANION GAP 13.3 mmol/L (8-16); BLOOD UREA NITROGEN 23 mg/dL (7-26); BUN/CREATININE RATIO 40 (6-25); CALCIUM 8.4 mg/dL (8.4-10.2); CARBON DIOXIDE 26 mmol/L (22-29); CHLORIDE 103 mmol/L (98-107); CREATININE, SERUM 0.57 mg/dL (0.57-1.11); EST GLOMERULAR FILTRATION RATE > 60 ML/MIN (60-); GLUCOSE 375 mg/dL (74-118); POTASSIUM 4.3 mmol/L (3.5-5.1); SODIUM 138 mmol/L (136-145)
[2020-09-17] MEDS: ERTUGLIFLOZIN PIDOLATE 5 MG PO SCH (09:00)
[2020-09-17] MEDS: MIDAZOLAM HCL 5MG/ML 10ML VIAL 100 ML IV PRN ×2 (09:47→17:53)
[2020-09-17] MEDS ORDERED: SODIUM CHLORIDE 0.9% 1000ML 1,000 ML ONE (10:00)
[2020-09-17] MEDS ORDERED: ALBUMIN 25% 25GM 100ML 0.25 GM/ML BTL IV SCH (11:00)
[2020-09-17 11:55] LABS: ABG HCO3 28 mmol/L (22-26); ABG PCO2 48 mmHg (35-45); ABG PH 7.37 (7.35-7.45); ABG PO2 72 mmHg (80-105); ABG TCO2 30
[2020-09-17] MEDS: FUROSEMIDE INJ 100 MG in SODIUM CHLORIDE 0.9% 100 ML 90 ML IV SCH (13:45)
[2020-09-17] MEDS: ALBUMIN 25% 25GM 100ML 100 ML IV SCH ×2 (14:00→19:44)
[2020-09-17] MEDS ORDERED: ROCURONIUM BROMIDE 1,250 MG in SODIUM CHLORIDE 0.9% 250ML 125 ML IV SCH (17:15)
[2020-09-17] MEDS: FONDAPARINUX SODIUM 7.5 MG/0.6 ML SYR SQ SCH (17:52)
[2020-09-17] MEDS: FONDAPARINUX SODIUM 2.5 MG/0.5 ML SYR SQ SCH (17:52)
[2020-09-17] MEDS ORDERED: VECURONIUM BROMIDE FOR INJ 20 MG VIAL ONE (18:52)
[2020-09-17] MEDS: VECURONIUM BROMIDE FOR INJ 20 MG VIAL IV STA (20:10)
[2020-09-17] MEDS ORDERED: SODIUM CHLORIDE 0.9% 100 ML ONE (22:39)
[2020-09-18] VITALS (27 sets, daily range): BP systolic 98–148; BP diastolic 45–74
[2020-09-18] MEDS: VANCOMYCIN 1GM/NS 250 ML 250 ML IV SCH ×2 (02:00→13:47)
[2020-09-18] MEDS: FENTANYL 2000MCG/NS 250 250 ML IV PRN ×4 (03:10→23:36)
[2020-09-18] MEDS ORDERED: ROCURONIUM BROMIDE 250 ML IV ONE (03:55)
[2020-09-18] MEDS: ALBUMIN 25% 25GM 100ML 100 ML IV SCH (04:00)
[2020-09-18] MEDS: MEROPENEM 1GM 100 ML IV SCH ×3 (04:30→21:06)
[2020-09-18] MEDS ORDERED: SODIUM CHLORIDE 0.9% 250ML 250 ML ONE (05:07)
[2020-09-18 06:23] LABS: BASOPHILS % 0.1 % (0.0-1.0); EOSINOPHILS # (AUTO) 0.1 (0.0-0.4); EOSINOPHILS % 0.5 % (0.0-6.0); HEMATOCRIT 29.9 % (34.2-44.1); HEMOGLOBIN 9.5 g/dL (12.0-16.0); LYMPHOCYTES # (AUTO) 1.3 (1.0-3.2); LYMPHOCYTES % 10.3 % (18.0-39.1); MEAN CORPUSCULAR HEMOGLOBIN 28.5 pg (28-32); MEAN CORPUSCULAR HGB CONC 31.8 g/dL (31-35); MEAN CORPUSCULAR VOLUME 89.8 fL (81-99); MONOCYTES # (AUTO) 0.3 (0.2-0.8); MONOCYTES % 2.5 % (4.4-11.3); NEUTROPHILS # (AUTO) 10.7 (2.1-6.9); NEUTROPHILS % 85.5 % (38.7-80.0); PLATELET COUNT 87 x10e3/uL (140-360); RED BLOOD COUNT 3.33 x10e6/uL (3.6-5.1); RED CELL DISTRIBUTION WIDTH 15.5 % (11.7-14.4)
[2020-09-18 06:50] LABS: ALANINE AMINOTRANSFERASE 21 IU/L (0-55); ALBUMIN 2.9 g/dL (3.5-5.0); ALKALINE PHOSPHATASE 151 IU/L (40-150); ANION GAP 12.3 mmol/L (8-16); BLOOD UREA NITROGEN 26 mg/dL (7-26); BUN/CREATININE RATIO 40 (6-25); CALCIUM 8.8 mg/dL (8.4-10.2); CARBON DIOXIDE 33 mmol/L (22-29); CHLORIDE 100 mmol/L (98-107); CREATININE, SERUM 0.65 mg/dL (0.57-1.11); EST GLOMERULAR FILTRATION RATE > 60 ML/MIN (60-); GLUCOSE 243 mg/dL (74-118); POTASSIUM 3.3 mmol/L (3.5-5.1); SODIUM 142 mmol/L (136-145)
[2020-09-18] MEDS: MIDAZOLAM HCL 5MG/ML 10ML VIAL 100 ML IV PRN ×3 (07:36→23:37)
[2020-09-18] MEDS: ERTUGLIFLOZIN PIDOLATE 5 MG PO SCH (09:00)
[2020-09-18] MEDS: FUROSEMIDE INJ 100 MG in SODIUM CHLORIDE 0.9% 100 ML 90 ML IV SCH (09:22)
[2020-09-18 10:15] LABS: ABG HCO3 36 mmol/L (22-26); ABG PCO2 44 mmHg (35-45); ABG PH 7.52 (7.35-7.45); ABG PO2 61 mmHg (80-105); ABG TCO2 37
[2020-09-18] MEDS ORDERED: POTASSIUM CHLORIDE 20MEQ/100ML 200 ML IV ONE (10:30)
[2020-09-18 17:35] LABS: ABG HCO3 38 mmol/L (22-26); ABG PCO2 48 mmHg (35-45); ABG PH 7.51 (7.35-7.45); ABG PO2 61 mmHg (80-105); ABG TCO2 40
[2020-09-18] MEDS: FONDAPARINUX SODIUM 2.5 MG/0.5 ML SYR SQ SCH (18:30)
[2020-09-18] MEDS: VECURONIUM BROMIDE FOR INJ 20 MG VIAL IV STA (18:31)
[2020-09-18] MEDS: FONDAPARINUX SODIUM 7.5 MG/0.6 ML SYR SQ SCH (18:31)
[2020-09-19] VITALS (30 sets, daily range): BP systolic 90–120; BP diastolic 40–55
[2020-09-19] MEDS: VANCOMYCIN 1GM/NS 250 ML 250 ML IV SCH ×2 (02:57→13:14)
[2020-09-19] MEDS ORDERED: INSULIN REGULAR, HUMAN 100 UNIT/1 ML 3ML VIAL ONE (03:30)
[2020-09-19] MEDS ORDERED: SODIUM CHLORIDE 0.9% 100 ML ONE (03:31)
[2020-09-19] MEDS: MEROPENEM 1GM 100 ML IV SCH ×3 (04:05→20:20)
[2020-09-19] MEDS: FUROSEMIDE INJ 100 MG in SODIUM CHLORIDE 0.9% 100 ML 90 ML IV SCH ×2 (04:25→23:15)
[2020-09-19] MEDS: INSULIN REGULAR, HUMAN 3ML VL 100 UNIT in SODIUM CHLORIDE 0.9% 100 ML 99 ML IV SCH ×2 (04:26)
[2020-09-19] MEDS: MIDAZOLAM HCL 5MG/ML 10ML VIAL 100 ML IV PRN ×3 (06:12→19:45)
[2020-09-19 06:20] LABS: BASOPHILS % 0.2 % (0.0-1.0); EOSINOPHILS # (AUTO) 0.1 (0.0-0.4); EOSINOPHILS % 1.3 % (0.0-6.0); HEMATOCRIT 32.2 % (34.2-44.1); HEMOGLOBIN 10.2 g/dL (12.0-16.0); LYMPHOCYTES # (AUTO) 1.3 (1.0-3.2); MEAN CORPUSCULAR HEMOGLOBIN 28.9 pg (28-32); MEAN CORPUSCULAR HGB CONC 31.7 g/dL (31-35); MEAN CORPUSCULAR VOLUME 91.2 fL (81-99); MONOCYTES # (AUTO) 0.4 (0.2-0.8); MONOCYTES % 3.9 % (4.4-11.3); NEUTROPHILS % 80.7 % (38.7-80.0); PLATELET COUNT 87 x10e3/uL (140-360); RED BLOOD COUNT 3.53 x10e6/uL (3.6-5.1); RED CELL DISTRIBUTION WIDTH 15.6 % (11.7-14.4)
[2020-09-19 06:38] LABS: ALANINE AMINOTRANSFERASE 26 IU/L (0-55); ALBUMIN 2.5 g/dL (3.5-5.0); ALBUMIN/GLOBULIN RATIO 0.8 (0.8-2.0); ALKALINE PHOSPHATASE 175 IU/L (40-150); ANION GAP 12.8 mmol/L (8-16); BLOOD UREA NITROGEN 27 mg/dL (7-26); BUN/CREATININE RATIO 54 (6-25); CARBON DIOXIDE 34 mmol/L (22-29); CHLORIDE 99 mmol/L (98-107); EST GLOMERULAR FILTRATION RATE > 60 ML/MIN (60-); GLUCOSE 191 mg/dL (74-118); POTASSIUM 3.8 mmol/L (3.5-5.1); SODIUM 142 mmol/L (136-145)
[2020-09-19] MEDS: ERTUGLIFLOZIN PIDOLATE 5 MG PO SCH (07:30)
[2020-09-19] MEDS: FENTANYL 2000MCG/NS 250 250 ML IV PRN ×2 (08:23→20:16)
[2020-09-19 08:49] LABS: ABG HCO3 35 mmol/L (22-26); ABG PCO2 46 mmHg (35-45); ABG PH 7.49 (7.35-7.45); ABG PO2 57 mmHg (80-105); ABG TCO2 36
[2020-09-19] MEDS: DOCUSATE SODIUM LIQD 100 MG/10 ML UDC NG SCH (11:29)
[2020-09-19] MEDS: ACETAMINOPHEN 325 MG/10 ML UDC NG PRN ×2 (16:22→23:45)
[2020-09-19] MEDS: FONDAPARINUX SODIUM 7.5 MG/0.6 ML SYR SQ SCH (16:26)
[2020-09-19] MEDS: FONDAPARINUX SODIUM 2.5 MG/0.5 ML SYR SQ SCH (16:26)
[2020-09-20] VITALS (30 sets, daily range): BP systolic 90–135; BP diastolic 41–63
[2020-09-20] MEDS: VANCOMYCIN 1GM/NS 250 ML 250 ML IV SCH ×2 (01:54→14:43)
[2020-09-20] MEDS ORDERED: SODIUM CHLORIDE 0.9% 100 ML ONE (02:50)
[2020-09-20] MEDS: INSULIN REGULAR, HUMAN 3ML VL 100 UNIT in SODIUM CHLORIDE 0.9% 100 ML 99 ML IV SCH ×2 (03:02)
[2020-09-20] MEDS: MIDAZOLAM HCL 5MG/ML 10ML VIAL 100 ML IV PRN ×3 (03:35→22:55)
[2020-09-20] MEDS: MEROPENEM 1GM 100 ML IV SCH ×3 (03:42→20:48)
[2020-09-20 06:04] LABS: BASOPHILS # (AUTO) 0.1 (0.0-0.1); BASOPHILS % 0.4 % (0.0-1.0); EOSINOPHILS # (AUTO) 0.3 (0.0-0.4); EOSINOPHILS % 1.5 % (0.0-6.0); HEMATOCRIT 31.9 % (34.2-44.1); HEMOGLOBIN 10.3 g/dL (12.0-16.0); LYMPHOCYTES # (AUTO) 1.3 (1.0-3.2); MEAN CORPUSCULAR HEMOGLOBIN 29.3 pg (28-32); MEAN CORPUSCULAR HGB CONC 32.3 g/dL (31-35); MEAN CORPUSCULAR VOLUME 90.6 fL (81-99); MONOCYTES # (AUTO) 0.3 (0.2-0.8); MONOCYTES % 1.7 % (4.4-11.3); NEUTROPHILS # (AUTO) 14.2 (2.1-6.9); NEUTROPHILS % 86.8 % (38.7-80.0); PLATELET COUNT 101 x10e3/uL (140-360); RED BLOOD COUNT 3.52 x10e6/uL (3.6-5.1); RED CELL DISTRIBUTION WIDTH 15.9 % (11.7-14.4)
[2020-09-20 06:30] LABS: ALANINE AMINOTRANSFERASE 22 IU/L (0-55); ALBUMIN 2.2 g/dL (3.5-5.0); ALBUMIN/GLOBULIN RATIO 0.6 (0.8-2.0); ALKALINE PHOSPHATASE 175 IU/L (40-150); ANION GAP 13.9 mmol/L (8-16); BLOOD UREA NITROGEN 23 mg/dL (7-26); BUN/CREATININE RATIO 42 (6-25); CALCIUM 8.3 mg/dL (8.4-10.2); CARBON DIOXIDE 39 mmol/L (22-29); CHLORIDE 90 mmol/L (98-107); CREATININE, SERUM 0.55 mg/dL (0.57-1.11); EST GLOMERULAR FILTRATION RATE > 60 ML/MIN (60-); GLUCOSE 242 mg/dL (74-118); SODIUM 140 mmol/L (136-145)
[2020-09-20] MEDS ORDERED: HEPARIN SOD/SOD CHLORIDE 1,000 ML ONE (06:35)
[2020-09-20 06:40] LABS: POTASSIUM 2.9 mmol/L (3.5-5.1)
[2020-09-20] MEDS ORDERED: POTASSIUM CHLORIDE 20MEQ/100ML 200 ML IV ONE (07:30)
[2020-09-20] MEDS: DOCUSATE SODIUM LIQD 100 MG/10 ML UDC NG SCH (08:43)
[2020-09-20] MEDS: FENTANYL 2000MCG/NS 250 250 ML IV PRN ×2 (08:45→17:53)
[2020-09-20] MEDS: ERTUGLIFLOZIN PIDOLATE 5 MG PO SCH (08:47)
[2020-09-20 08:48] LABS: ABG HCO3 43 mmol/L (22-26); ABG PCO2 54 mmHg (35-45); ABG PO2 52 mmHg (80-105); ABG TCO2 45
[2020-09-20] MEDS ORDERED: ALBUMIN 25% 25GM 100ML 100 ML ONE (09:04)
[2020-09-20] MEDS: ALBUMIN 25% 25GM 100ML 0.25 GM/ML BTL IV SCH ×3 (09:30→22:52)
[2020-09-20] MEDS: ACETAZOLAMIDE 250 MG TAB PO SCH ×2 (09:30→20:48)
[2020-09-20] MEDS: FONDAPARINUX SODIUM 7.5 MG/0.6 ML SYR SQ SCH (18:17)
[2020-09-20] MEDS: FONDAPARINUX SODIUM 2.5 MG/0.5 ML SYR SQ SCH (18:17)
[2020-09-21] VITALS (25 sets, daily range): BP systolic 94–136; BP diastolic 43–55
[2020-09-21] MEDS ORDERED: ROCURONIUM BROMIDE 1,250 MG in SODIUM CHLORIDE 0.9% 250ML 125 ML IV PRN ×2
[2020-09-21] MEDS ORDERED: ROCURONIUM BROMIDE 250 ML IV ONE (00:10)
[2020-09-21] MEDS: ACETAMINOPHEN 325 MG/10 ML UDC NG PRN (00:42)
[2020-09-21] MEDS: FENTANYL 2000MCG/NS 250 250 ML IV PRN ×3 (01:53→19:07)
[2020-09-21] MEDS: VANCOMYCIN 1GM/NS 250 ML 250 ML IV SCH ×2 (02:28→14:34)
[2020-09-21] MEDS: MEROPENEM 1GM 100 ML IV SCH ×2 (04:16→11:24)
[2020-09-21 06:17] LABS: BASOPHILS % 0.2 % (0.0-1.0); EOSINOPHILS # (AUTO) 0.4 (0.0-0.4); EOSINOPHILS % 2.5 % (0.0-6.0); HEMATOCRIT 29.2 % (34.2-44.1); HEMOGLOBIN 8.9 g/dL (12.0-16.0); LYMPHOCYTES # (AUTO) 0.9 (1.0-3.2); LYMPHOCYTES % 6.4 % (18.0-39.1); MEAN CORPUSCULAR HEMOGLOBIN 28.5 pg (28-32); MEAN CORPUSCULAR HGB CONC 30.5 g/dL (31-35); MEAN CORPUSCULAR VOLUME 93.6 fL (81-99); MONOCYTES # (AUTO) 0.4 (0.2-0.8); MONOCYTES % 2.5 % (4.4-11.3); NEUTROPHILS # (AUTO) 12.4 (2.1-6.9); NEUTROPHILS % 87.6 % (38.7-80.0); PLATELET COUNT 93 x10e3/uL (140-360); RED BLOOD COUNT 3.12 x10e6/uL (3.6-5.1); RED CELL DISTRIBUTION WIDTH 16.3 % (11.7-14.4)
[2020-09-21] MEDS: MIDAZOLAM HCL 5MG/ML 10ML VIAL 100 ML IV PRN ×2 (06:33→17:55)
[2020-09-21 06:45] LABS: ALANINE AMINOTRANSFERASE 22 IU/L (0-55); ALKALINE PHOSPHATASE 182 IU/L (40-150); ANION GAP 10.4 mmol/L (8-16); BLOOD UREA NITROGEN 21 mg/dL (7-26); BUN/CREATININE RATIO 43 (6-25); CALCIUM 8.5 mg/dL (8.4-10.2); CARBON DIOXIDE 33 mmol/L (22-29); CHLORIDE 98 mmol/L (98-107); CREATININE, SERUM 0.49 mg/dL (0.57-1.11); EST GLOMERULAR FILTRATION RATE > 60 ML/MIN (60-); GLUCOSE 147 mg/dL (74-118); POTASSIUM 3.4 mmol/L (3.5-5.1); SODIUM 138 mmol/L (136-145)
[2020-09-21] MEDS: DOCUSATE SODIUM LIQD 100 MG/10 ML UDC NG SCH (08:28)
[2020-09-21] MEDS: ERTUGLIFLOZIN PIDOLATE 5 MG PO SCH (08:29)
[2020-09-21] MEDS ORDERED: MAGNESIUM HYDROXIDE 30 ML UDC PO ONE (08:45)
[2020-09-21 10:15] LABS: ABG HCO3 35 mmol/L (22-26); ABG PCO2 66 mmHg (35-45); ABG PH 7.34 (7.35-7.45); ABG PO2 83 mmHg (80-105); ABG TCO2 37
[2020-09-21] MEDS: FUROSEMIDE INJ 10 MG/ML 4 ML VIAL IV SCH ×2 (10:28→21:00)
[2020-09-21] MEDS: ACETAZOLAMIDE 500 MG CAP PO SCH ×2 (12:37→21:00)
[2020-09-21] MEDS ORDERED: KCL 20 MEQ PACKET/ ORAL SOLN NG ONE (13:30)
[2020-09-21 14:54] LABS: ABG HCO3 36 mmol/L (22-26); ABG PCO2 57 mmHg (35-45); ABG PH 7.41 (7.35-7.45); ABG PO2 58 mmHg (80-105); ABG TCO2 32
[2020-09-21] MEDS: INSULIN REGULAR, HUMAN 3ML VL 100 UNIT in SODIUM CHLORIDE 0.9% 100 ML 99 ML IV SCH ×2 (16:19)
[2020-09-21] MEDS: FONDAPARINUX SODIUM 7.5 MG/0.6 ML SYR SQ SCH (16:25)
[2020-09-21] MEDS: FONDAPARINUX SODIUM 2.5 MG/0.5 ML SYR SQ SCH (16:25)
[2020-09-21] MEDS ORDERED: VECURONIUM BROMIDE FOR INJ 20 MG VIAL IV STA (17:05)
[2020-09-21] MEDS: ROCURONIUM BROMIDE 1,250 MG in SODIUM CHLORIDE 0.9% 250ML 125 ML IV SCH (17:47)
[2020-09-21] MEDS ORDERED: ROCURONIUM BROMIDE 10 MG/ML 5ML VIAL IV ONE (18:00)
[2020-09-22] VITALS (26 sets, daily range): BP systolic 87–162; BP diastolic 44–87
[2020-09-22] MEDS: MIDAZOLAM HCL 5MG/ML 10ML VIAL 100 ML IV PRN ×2 (00:22→16:05)
[2020-09-22] MEDS: FENTANYL 2000MCG/NS 250 250 ML IV PRN ×4 (02:52→23:48)
[2020-09-22] MEDS: ACETAMINOPHEN 325 MG/10 ML UDC NG PRN ×2 (04:50→20:39)
[2020-09-22 06:13] LABS: BASOPHILS % 0.2 % (0.0-1.0); EOSINOPHILS # (AUTO) 0.5 (0.0-0.4); EOSINOPHILS % 3.6 % (0.0-6.0); HEMATOCRIT 30.4 % (34.2-44.1); HEMOGLOBIN 9.3 g/dL (12.0-16.0); LYMPHOCYTES % 8.2 % (18.0-39.1); MEAN CORPUSCULAR HGB CONC 30.6 g/dL (31-35); MEAN CORPUSCULAR VOLUME 94.7 fL (81-99); MONOCYTES # (AUTO) 0.5 (0.2-0.8); NEUTROPHILS # (AUTO) 10.4 (2.1-6.9); NEUTROPHILS % 83.2 % (38.7-80.0); PLATELET COUNT 131 x10e3/uL (140-360); RED BLOOD COUNT 3.21 x10e6/uL (3.6-5.1); RED CELL DISTRIBUTION WIDTH 16.2 % (11.7-14.4)
[2020-09-22 07:09] LABS: ALANINE AMINOTRANSFERASE 27 IU/L (0-55); ALBUMIN 2.7 g/dL (3.5-5.0); ALBUMIN/GLOBULIN RATIO 0.8 (0.8-2.0); ALKALINE PHOSPHATASE 265 IU/L (40-150); ANION GAP 10.9 mmol/L (8-16); BLOOD UREA NITROGEN 25 mg/dL (7-26); BUN/CREATININE RATIO 48 (6-25); CALCIUM 8.4 mg/dL (8.4-10.2); CARBON DIOXIDE 33 mmol/L (22-29); CHLORIDE 95 mmol/L (98-107); CREATININE, SERUM 0.52 mg/dL (0.57-1.11); EST GLOMERULAR FILTRATION RATE > 60 ML/MIN (60-); GLUCOSE 175 mg/dL (74-118); POTASSIUM 3.9 mmol/L (3.5-5.1); SODIUM 135 mmol/L (136-145)
[2020-09-22 08:54] LABS: ABG HCO3 35 mmol/L (22-26); ABG PCO2 64 mmHg (35-45); ABG PH 7.35 (7.35-7.45); ABG PO2 118 mmHg (80-105); ABG TCO2 37
[2020-09-22] MEDS: ERTUGLIFLOZIN PIDOLATE 5 MG PO SCH (09:00)
[2020-09-22] MEDS: DOCUSATE SODIUM LIQD 100 MG/10 ML UDC NG SCH (09:03)
[2020-09-22] MEDS: ROCURONIUM BROMIDE 1,250 MG in SODIUM CHLORIDE 0.9% 250ML 125 ML IV SCH (17:30)
[2020-09-22] MEDS: FONDAPARINUX SODIUM 2.5 MG/0.5 ML SYR SQ SCH (17:39)
[2020-09-22] MEDS: NYSTATIN 15 GM POWDER UD BTL TOP SCH (17:39)
[2020-09-22] MEDS: FONDAPARINUX SODIUM 7.5 MG/0.6 ML SYR SQ SCH (17:39)
[2020-09-23] VITALS (25 sets, daily range): BP systolic 102–173; BP diastolic 48–67
[2020-09-23] MEDS: MIDAZOLAM HCL 5MG/ML 10ML VIAL 100 ML IV PRN ×2 (03:45→14:13)
[2020-09-23] MEDS: ACETAMINOPHEN 325 MG/10 ML UDC NG PRN ×2 (05:54→20:52)
[2020-09-23 06:10] LABS: BASOPHILS # (AUTO) 0.1 (0.0-0.1); BASOPHILS % 0.4 % (0.0-1.0); EOSINOPHILS # (AUTO) 0.4 (0.0-0.4); HEMATOCRIT 32.8 % (34.2-44.1); HEMOGLOBIN 10.1 g/dL (12.0-16.0); LYMPHOCYTES # (AUTO) 0.8 (1.0-3.2); MEAN CORPUSCULAR HGB CONC 30.8 g/dL (31-35); MEAN CORPUSCULAR VOLUME 94.3 fL (81-99); MONOCYTES # (AUTO) 0.7 (0.2-0.8); MONOCYTES % 5.7 % (4.4-11.3); NEUTROPHILS % 82.8 % (38.7-80.0); PLATELET COUNT 179 x10e3/uL (140-360); RED BLOOD COUNT 3.48 x10e6/uL (3.6-5.1); RED CELL DISTRIBUTION WIDTH 16.3 % (11.7-14.4)
[2020-09-23 06:50] LABS: ALANINE AMINOTRANSFERASE 35 IU/L (0-55); ALBUMIN 2.5 g/dL (3.5-5.0); ALBUMIN/GLOBULIN RATIO 0.6 (0.8-2.0); ALKALINE PHOSPHATASE 291 IU/L (40-150); ANION GAP 11.4 mmol/L (8-16); BLOOD UREA NITROGEN 26 mg/dL (7-26); BUN/CREATININE RATIO 54 (6-25); CALCIUM 8.6 mg/dL (8.4-10.2); CARBON DIOXIDE 33 mmol/L (22-29); CHLORIDE 95 mmol/L (98-107); CREATININE, SERUM 0.48 mg/dL (0.57-1.11); EST GLOMERULAR FILTRATION RATE > 60 ML/MIN (60-); GLUCOSE 203 mg/dL (74-118); POTASSIUM 4.4 mmol/L (3.5-5.1); SODIUM 135 mmol/L (136-145)
[2020-09-23 07:16] LABS: ABG HCO3 35 mmol/L (22-26); ABG PCO2 67 mmHg (35-45); ABG PH 7.33 (7.35-7.45); ABG PO2 68 mmHg (80-105); ABG TCO2 37
[2020-09-23] MEDS: DOCUSATE SODIUM LIQD 100 MG/10 ML UDC NG SCH (08:28)
[2020-09-23] MEDS: NYSTATIN 15 GM POWDER UD BTL TOP SCH ×2 (08:29→17:40)
[2020-09-23] MEDS: ERTUGLIFLOZIN PIDOLATE 5 MG PO SCH (08:30)
[2020-09-23] MEDS: FUROSEMIDE INJ 10 MG/ML 4 ML VIAL IV SCH ×2 (10:42→21:06)
[2020-09-23] MEDS: ACETAZOLAMIDE 500 MG CAP PO SCH ×2 (10:42→21:06)
[2020-09-23] MEDS: ALBUMIN 25% 25GM 100ML 0.25 GM/ML BTL IV SCH ×3 (10:43→21:06)
[2020-09-23] MEDS ORDERED: MIDAZOLAM HCL 5MG/ML 10ML VIAL 100 ML BAG IV ONE (14:10)
[2020-09-23] MEDS ORDERED: FENTANYL 2,000 MCG/250 ML BAG ONE (14:10)
[2020-09-23] MEDS: FENTANYL 2000MCG/NS 250 250 ML IV PRN (14:12)
[2020-09-23] MEDS: ROCURONIUM BROMIDE 1,250 MG in SODIUM CHLORIDE 0.9% 250ML 125 ML IV SCH (14:12)
[2020-09-23] MEDS: INSULIN REGULAR, HUMAN 3ML VL 100 UNIT in SODIUM CHLORIDE 0.9% 100 ML 99 ML IV SCH ×2 (14:13)
[2020-09-23] MEDS: FONDAPARINUX SODIUM 10 MG/0.8 ML SYR SQ SCH (17:39)
[2020-09-24] VITALS (26 sets, daily range): BP systolic 110–153; BP diastolic 48–61
[2020-09-24] MEDS: FENTANYL 2000MCG/NS 250 250 ML IV PRN ×2 (01:00→22:27)
[2020-09-24] MEDS: MIDAZOLAM HCL 5MG/ML 10ML VIAL 100 ML IV PRN (01:00)
[2020-09-24] MEDS: ACETAMINOPHEN 325 MG/10 ML UDC NG PRN ×2 (04:37→20:10)
[2020-09-24 05:49] LABS: BASOPHILS % 0.4 % (0.0-1.0); EOSINOPHILS # (AUTO) 0.4 (0.0-0.4); HEMATOCRIT 31.6 % (34.2-44.1); HEMOGLOBIN 9.6 g/dL (12.0-16.0); LYMPHOCYTES # (AUTO) 1.1 (1.0-3.2); LYMPHOCYTES % 10.4 % (18.0-39.1); MEAN CORPUSCULAR HEMOGLOBIN 29.3 pg (28-32); MEAN CORPUSCULAR HGB CONC 30.4 g/dL (31-35); MEAN CORPUSCULAR VOLUME 96.3 fL (81-99); MONOCYTES # (AUTO) 0.8 (0.2-0.8); MONOCYTES % 7.5 % (4.4-11.3); NEUTROPHILS # (AUTO) 8.1 (2.1-6.9); NEUTROPHILS % 76.2 % (38.7-80.0); PLATELET COUNT 186 x10e3/uL (140-360); RED BLOOD COUNT 3.28 x10e6/uL (3.6-5.1); RED CELL DISTRIBUTION WIDTH 16.2 % (11.7-14.4)
[2020-09-24 06:01] LABS: ALANINE AMINOTRANSFERASE 46 IU/L (0-55); ALBUMIN 3.4 g/dL (3.5-5.0); ALKALINE PHOSPHATASE 253 IU/L (40-150); ANION GAP 11.8 mmol/L (8-16); BLOOD UREA NITROGEN 26 mg/dL (7-26); BUN/CREATININE RATIO 50 (6-25); CALCIUM 8.5 mg/dL (8.4-10.2); CARBON DIOXIDE 34 mmol/L (22-29); CHLORIDE 93 mmol/L (98-107); CREATININE, SERUM 0.52 mg/dL (0.57-1.11); EST GLOMERULAR FILTRATION RATE > 60 ML/MIN (60-); GLUCOSE 241 mg/dL (74-118); POTASSIUM 3.8 mmol/L (3.5-5.1); SODIUM 135 mmol/L (136-145)
[2020-09-24 08:23] LABS: ABG HCO3 36 mmol/L (22-26); ABG PCO2 72 mmHg (35-45); ABG PH 7.31 (7.35-7.45); ABG PO2 59 mmHg (80-105); ABG TCO2 38
[2020-09-24] MEDS: DOCUSATE SODIUM LIQD 100 MG/10 ML UDC NG SCH (08:44)
[2020-09-24] MEDS: FUROSEMIDE INJ 10 MG/ML 4 ML VIAL IV SCH (08:44)
[2020-09-24] MEDS: ACETAZOLAMIDE 500 MG CAP PO SCH (08:45)
[2020-09-24] MEDS: ERTUGLIFLOZIN PIDOLATE 5 MG PO SCH (08:46)
[2020-09-24] MEDS: NYSTATIN 15 GM POWDER UD BTL TOP SCH ×2 (08:46→16:53)
[2020-09-24] MEDS: FONDAPARINUX SODIUM 10 MG/0.8 ML SYR SQ SCH (16:53)
[2020-09-24] MEDS: INSULIN REGULAR, HUMAN 3ML VL 100 UNIT in SODIUM CHLORIDE 0.9% 100 ML 99 ML IV SCH ×2 (22:00)
[2020-09-24] MEDS ORDERED: SODIUM CHLORIDE 0.9% 100 ML ONE (22:12)
[2020-09-25] VITALS (19 sets, daily range): BP systolic 121–149; BP diastolic 50–65
[2020-09-25 05:44] LABS: BASOPHILS # (AUTO) 0.1 (0.0-0.1); BASOPHILS % 0.6 % (0.0-1.0); EOSINOPHILS # (AUTO) 0.7 (0.0-0.4); EOSINOPHILS % 6.1 % (0.0-6.0); HEMATOCRIT 33.2 % (34.2-44.1); LYMPHOCYTES # (AUTO) 1.3 (1.0-3.2); LYMPHOCYTES % 10.8 % (18.0-39.1); MEAN CORPUSCULAR HEMOGLOBIN 28.5 pg (28-32); MEAN CORPUSCULAR HGB CONC 30.1 g/dL (31-35); MEAN CORPUSCULAR VOLUME 94.6 fL (81-99); MONOCYTES # (AUTO) 0.9 (0.2-0.8); MONOCYTES % 7.5 % (4.4-11.3); NEUTROPHILS # (AUTO) 8.6 (2.1-6.9); PLATELET COUNT 237 x10e3/uL (140-360); RED BLOOD COUNT 3.51 x10e6/uL (3.6-5.1); RED CELL DISTRIBUTION WIDTH 16.6 % (11.7-14.4)
[2020-09-25 06:11] LABS: ALANINE AMINOTRANSFERASE 42 IU/L (0-55); ALBUMIN 3.1 g/dL (3.5-5.0); ALBUMIN/GLOBULIN RATIO 0.8 (0.8-2.0); ALKALINE PHOSPHATASE 241 IU/L (40-150); ANION GAP 10.9 mmol/L (8-16); BLOOD UREA NITROGEN 29 mg/dL (7-26); BUN/CREATININE RATIO 57 (6-25); CALCIUM 8.6 mg/dL (8.4-10.2); CARBON DIOXIDE 34 mmol/L (22-29); CHLORIDE 92 mmol/L (98-107); CREATININE, SERUM 0.51 mg/dL (0.57-1.11); EST GLOMERULAR FILTRATION RATE > 60 ML/MIN (60-); GLUCOSE 247 mg/dL (74-118); POTASSIUM 3.9 mmol/L (3.5-5.1); SODIUM 133 mmol/L (136-145)
[2020-09-25] MEDS: LACTULOSE SYRUP 20 GM/30 ML UDC PO PRN (06:58)
[2020-09-25] MEDS: ERTUGLIFLOZIN PIDOLATE 5 MG PO SCH (08:01)
[2020-09-25] MEDS: BALSAM PERU/CASTOR OIL 60 GM OINT...G. TP SCH (08:01)
[2020-09-25] MEDS: NYSTATIN 15 GM POWDER UD BTL TOP SCH ×2 (08:01→17:16)
[2020-09-25] MEDS: DOCUSATE SODIUM LIQD 100 MG/10 ML UDC NG SCH (08:01)
[2020-09-25] MEDS: FENTANYL 2000MCG/NS 250 250 ML IV PRN (08:03)
[2020-09-25 08:59] LABS: ABG HCO3 36 mmol/L (22-26); ABG PCO2 68 mmHg (35-45); ABG PH 7.33 (7.35-7.45); ABG PO2 57 mmHg (80-105); ABG TCO2 38
[2020-09-25] MEDS: ACETAZOLAMIDE 500 MG CAP PO SCH ×2 (12:59→17:16)
[2020-09-25] MEDS ORDERED: FENTANYL 2,000 MCG/250 ML BAG ONE (13:07)
[2020-09-25] MEDS ORDERED: MIDAZOLAM HCL 5MG/ML 10ML VIAL 100 ML BAG IV ONE (13:07)
[2020-09-25] MEDS: FONDAPARINUX SODIUM 10 MG/0.8 ML SYR SQ SCH (17:16)
[2020-09-26] VITALS (19 sets, daily range): BP systolic 99–171; BP diastolic 49–75
[2020-09-26 05:34] LABS: BASOPHILS # (AUTO) 0.1 (0.0-0.1); BASOPHILS % 0.5 % (0.0-1.0); EOSINOPHILS # (AUTO) 0.3 (0.0-0.4); EOSINOPHILS % 2.5 % (0.0-6.0); HEMATOCRIT 31.9 % (34.2-44.1); HEMOGLOBIN 9.9 g/dL (12.0-16.0); LYMPHOCYTES # (AUTO) 1.1 (1.0-3.2); LYMPHOCYTES % 10.1 % (18.0-39.1); MEAN CORPUSCULAR HEMOGLOBIN 29.7 pg (28-32); MEAN CORPUSCULAR VOLUME 95.8 fL (81-99); MONOCYTES # (AUTO) 0.7 (0.2-0.8); NEUTROPHILS # (AUTO) 8.7 (2.1-6.9); NEUTROPHILS % 79.2 % (38.7-80.0); PLATELET COUNT 231 x10e3/uL (140-360); RED BLOOD COUNT 3.33 x10e6/uL (3.6-5.1)
[2020-09-26 06:09] LABS: ALANINE AMINOTRANSFERASE 35 IU/L (0-55); ALBUMIN 2.7 g/dL (3.5-5.0); ALBUMIN/GLOBULIN RATIO 0.7 (0.8-2.0); ALKALINE PHOSPHATASE 187 IU/L (40-150); ANION GAP 10.1 mmol/L (8-16); BLOOD UREA NITROGEN 19 mg/dL (7-26); BUN/CREATININE RATIO 45 (6-25); CALCIUM 8.4 mg/dL (8.4-10.2); CARBON DIOXIDE 34 mmol/L (22-29); CHLORIDE 96 mmol/L (98-107); CREATININE, SERUM 0.42 mg/dL (0.57-1.11); EST GLOMERULAR FILTRATION RATE > 60 ML/MIN (60-); GLUCOSE 132 mg/dL (74-118); POTASSIUM 4.1 mmol/L (3.5-5.1); SODIUM 136 mmol/L (136-145)
[2020-09-26] MEDS: BALSAM PERU/CASTOR OIL 60 GM OINT...G. TP SCH (08:15)
[2020-09-26] MEDS: ERTUGLIFLOZIN PIDOLATE 5 MG PO SCH (08:15)
[2020-09-26] MEDS: NYSTATIN 15 GM POWDER UD BTL TOP SCH ×2 (08:15→18:19)
[2020-09-26 08:17] LABS: ABG HCO3 36 mmol/L (22-26); ABG PCO2 65 mmHg (35-45); ABG PH 7.35 (7.35-7.45); ABG PO2 123 mmHg (80-105); ABG TCO2 38
[2020-09-26] MEDS: ACETAZOLAMIDE 500 MG CAP PO SCH (08:22)
[2020-09-26] MEDS: DOCUSATE SODIUM LIQD 100 MG/10 ML UDC NG SCH (08:22)
[2020-09-26] MEDS ORDERED: FUROSEMIDE INJ 10 MG/ML 4 ML VIAL IV ONE (10:30)
[2020-09-26] MEDS: FONDAPARINUX SODIUM 10 MG/0.8 ML SYR SQ SCH ×2 (17:00→18:19)
[2020-09-26 19:38] LABS: ABG HCO3 33 mmol/L (22-26); ABG PCO2 58 mmHg (35-45); ABG PH 7.37 (7.35-7.45); ABG PO2 59 mmHg (80-105); ABG TCO2 35
[2020-09-27] VITALS (24 sets, daily range): BP systolic 105–153; BP diastolic 28–71
[2020-09-27 05:51] LABS: HEMATOCRIT 29.4 % (34.2-44.1); HEMOGLOBIN 8.8 g/dL (12.0-16.0); MEAN CORPUSCULAR HEMOGLOBIN 28.9 pg (28-32); MEAN CORPUSCULAR HGB CONC 29.9 g/dL (31-35); MEAN CORPUSCULAR VOLUME 96.4 fL (81-99); PLATELET COUNT 206 x10e3/uL (140-360); RED BLOOD COUNT 3.05 x10e6/uL (3.6-5.1)
[2020-09-27 06:11] LABS: ALANINE AMINOTRANSFERASE 34 IU/L (0-55); ALBUMIN 3.1 g/dL (3.5-5.0); ALBUMIN/GLOBULIN RATIO 0.9 (0.8-2.0); ALKALINE PHOSPHATASE 191 IU/L (40-150); ANION GAP 13.3 mmol/L (8-16); BLOOD UREA NITROGEN 23 mg/dL (7-26); BUN/CREATININE RATIO 43 (6-25); CALCIUM 8.8 mg/dL (8.4-10.2); CARBON DIOXIDE 33 mmol/L (22-29); CHLORIDE 95 mmol/L (98-107); CREATININE, SERUM 0.53 mg/dL (0.57-1.11); EST GLOMERULAR FILTRATION RATE > 60 ML/MIN (60-); GLUCOSE 164 mg/dL (74-118); POTASSIUM 3.3 mmol/L (3.5-5.1); SODIUM 138 mmol/L (136-145)
[2020-09-27] MEDS: NYSTATIN 15 GM POWDER UD BTL TOP SCH ×2 (07:40→15:37)
[2020-09-27] MEDS: ERTUGLIFLOZIN PIDOLATE 5 MG PO SCH (07:40)
[2020-09-27] MEDS: BALSAM PERU/CASTOR OIL 60 GM OINT...G. TP SCH (07:40)
[2020-09-27] MEDS: DOCUSATE SODIUM LIQD 100 MG/10 ML UDC NG SCH (07:40)
[2020-09-27 08:49] LABS: EOSINOPHILS % (MANUAL) 4 % (0-7); LYMPHOCYTES % (MANUAL) 17 % (19-48); MONOCYTES % (MANUAL) 5 % (3.4-9.0); NEUTROPHILS % (MANUAL) 74 % (40-74)
[2020-09-27 08:59] LABS: ABG HCO3 33 mmol/L (22-26); ABG PCO2 58 mmHg (35-45); ABG PH 7.36 (7.35-7.45); ABG PO2 58 mmHg (80-105); ABG TCO2 35
[2020-09-27] MEDS ORDERED: POTASSIUM CHLORIDE 20MEQ/100ML 100 ML IV ONE (09:15)
[2020-09-27] MEDS: MIDAZOLAM HCL 5MG/ML 10ML VIAL 100 ML IV PRN (12:57)
[2020-09-27] MEDS: FONDAPARINUX SODIUM 10 MG/0.8 ML SYR SQ SCH (15:37)
[2020-09-28] VITALS (17 sets, daily range): BP systolic 106–134; BP diastolic 50–61
[2020-09-28 06:25] LABS: BASOPHILS # (AUTO) 0.1 (0.0-0.1); BASOPHILS % 0.5 % (0.0-1.0); EOSINOPHILS # (AUTO) 0.5 (0.0-0.4); EOSINOPHILS % 4.7 % (0.0-6.0); HEMATOCRIT 27.1 % (34.2-44.1); HEMOGLOBIN 8.1 g/dL (12.0-16.0); LYMPHOCYTES # (AUTO) 1.1 (1.0-3.2); LYMPHOCYTES % 9.6 % (18.0-39.1); MEAN CORPUSCULAR HEMOGLOBIN 28.7 pg (28-32); MEAN CORPUSCULAR HGB CONC 29.9 g/dL (31-35); MEAN CORPUSCULAR VOLUME 96.1 fL (81-99); MONOCYTES # (AUTO) 0.6 (0.2-0.8); MONOCYTES % 5.2 % (4.4-11.3); NEUTROPHILS # (AUTO) 8.7 (2.1-6.9); NEUTROPHILS % 78.6 % (38.7-80.0); PLATELET COUNT 245 x10e3/uL (140-360); RED BLOOD COUNT 2.82 x10e6/uL (3.6-5.1); RED CELL DISTRIBUTION WIDTH 18.1 % (11.7-14.4)
[2020-09-28 06:35] LABS: ALANINE AMINOTRANSFERASE 26 IU/L (0-55); ALBUMIN 2.7 g/dL (3.5-5.0); ALBUMIN/GLOBULIN RATIO 0.8 (0.8-2.0); ALKALINE PHOSPHATASE 156 IU/L (40-150); ANION GAP 10.3 mmol/L (8-16); BLOOD UREA NITROGEN 19 mg/dL (7-26); BUN/CREATININE RATIO 42 (6-25); CALCIUM 8.3 mg/dL (8.4-10.2); CARBON DIOXIDE 32 mmol/L (22-29); CHLORIDE 98 mmol/L (98-107); CREATININE, SERUM 0.45 mg/dL (0.57-1.11); EST GLOMERULAR FILTRATION RATE > 60 ML/MIN (60-); GLUCOSE 247 mg/dL (74-118); POTASSIUM 4.3 mmol/L (3.5-5.1); SODIUM 136 mmol/L (136-145)
[2020-09-28] MEDS: ERTUGLIFLOZIN PIDOLATE 5 MG PO SCH (07:44)
[2020-09-28] MEDS: DOCUSATE SODIUM LIQD 100 MG/10 ML UDC NG SCH (07:44)
[2020-09-28] MEDS: NYSTATIN 15 GM POWDER UD BTL TOP SCH ×2 (07:45→18:43)
[2020-09-28] MEDS: BALSAM PERU/CASTOR OIL 60 GM OINT...G. TP SCH (07:45)
[2020-09-28 08:44] LABS: ABG HCO3 33 mmol/L (22-26); ABG PCO2 68 mmHg (35-45); ABG PH 7.29 (7.35-7.45); ABG PO2 96 mmHg (80-105); ABG TCO2 35
[2020-09-28] MEDS ORDERED: MIDAZOLAM HCL 5MG/ML 10ML VIAL 100 ML BAG IV ONE (12:23)
[2020-09-28] MEDS ORDERED: FENTANYL 2,000 MCG/250 ML BAG ONE (12:23)
[2020-09-28 16:39] LABS: ABG PCO2 66 mmHg (35-45); ABG PH 7.31 (7.35-7.45); ABG PO2 55 mmHg (80-105)
[2020-09-28 16:40] LABS: ABG HCO3 33 mmol/L (22-26); ABG TCO2 35
[2020-09-28] MEDS: FONDAPARINUX SODIUM 10 MG/0.8 ML SYR SQ SCH (18:42)
[2020-09-28] MEDS: ROCURONIUM BROMIDE 1,250 MG in SODIUM CHLORIDE 0.9% 250ML 125 ML IV SCH (21:23)
[2020-09-29] VITALS (26 sets, daily range): BP systolic 87–134; BP diastolic 53–66
[2020-09-29 06:33] LABS: BASOPHILS % 0.3 % (0.0-1.0); EOSINOPHILS # (AUTO) 0.5 (0.0-0.4); EOSINOPHILS % 4.5 % (0.0-6.0); LYMPHOCYTES # (AUTO) 0.7 (1.0-3.2); LYMPHOCYTES % 6.6 % (18.0-39.1); MEAN CORPUSCULAR HEMOGLOBIN 28.8 pg (28-32); MEAN CORPUSCULAR HGB CONC 29.6 g/dL (31-35); MEAN CORPUSCULAR VOLUME 97.1 fL (81-99); MONOCYTES # (AUTO) 0.6 (0.2-0.8); MONOCYTES % 5.1 % (4.4-11.3); NEUTROPHILS # (AUTO) 9.1 (2.1-6.9); NEUTROPHILS % 82.8 % (38.7-80.0); PLATELET COUNT 250 x10e3/uL (140-360); RED BLOOD COUNT 2.78 x10e6/uL (3.6-5.1); RED CELL DISTRIBUTION WIDTH 18.7 % (11.7-14.4)
[2020-09-29 07:18] LABS: ALANINE AMINOTRANSFERASE 24 IU/L (0-55); ALBUMIN 2.5 g/dL (3.5-5.0); ALBUMIN/GLOBULIN RATIO 0.7 (0.8-2.0); ALKALINE PHOSPHATASE 150 IU/L (40-150); ANION GAP 9.2 mmol/L (8-16); BLOOD UREA NITROGEN 16 mg/dL (7-26); BUN/CREATININE RATIO 38 (6-25); CALCIUM 8.4 mg/dL (8.4-10.2); CARBON DIOXIDE 33 mmol/L (22-29); CHLORIDE 98 mmol/L (98-107); CREATININE, SERUM 0.42 mg/dL (0.57-1.11); EST GLOMERULAR FILTRATION RATE > 60 ML/MIN (60-); GLUCOSE 185 mg/dL (74-118); POTASSIUM 4.2 mmol/L (3.5-5.1); SODIUM 136 mmol/L (136-145)
[2020-09-29] MEDS: MIDAZOLAM HCL 5MG/ML 10ML VIAL 100 ML IV PRN ×2 (08:05→18:04)
[2020-09-29 08:15] LABS: ABG PH 7.33 (7.35-7.45)
[2020-09-29 08:16] LABS: ABG HCO3 34 mmol/L (22-26); ABG PCO2 65 mmHg (35-45); ABG PO2 63 mmHg (80-105); ABG TCO2 36
[2020-09-29] MEDS: ERTUGLIFLOZIN PIDOLATE 5 MG PO SCH (09:00)
[2020-09-29] MEDS: DOCUSATE SODIUM LIQD 100 MG/10 ML UDC NG SCH (09:03)
[2020-09-29] MEDS: NYSTATIN 15 GM POWDER UD BTL TOP SCH (09:05)
[2020-09-29] MEDS: BALSAM PERU/CASTOR OIL 60 GM OINT...G. TP SCH (09:05)
[2020-09-29] MEDS: ACETAZOLAMIDE 250 MG TAB PO SCH ×2 (13:08→21:28)
[2020-09-29] MEDS: ROCURONIUM BROMIDE 1,250 MG in SODIUM CHLORIDE 0.9% 250ML 125 ML IV SCH (17:26)
[2020-09-29] MEDS: FONDAPARINUX SODIUM 10 MG/0.8 ML SYR SQ SCH (17:26)
[2020-09-29] MEDS: FENTANYL 2000MCG/NS 250 250 ML IV PRN (18:04)
[2020-09-30] VITALS (27 sets, daily range): BP systolic 84–129; BP diastolic 44–77
[2020-09-30] MEDS: FENTANYL 2000MCG/NS 250 250 ML IV PRN ×2 (00:14→08:03)
[2020-09-30] MEDS: MIDAZOLAM HCL 5MG/ML 10ML VIAL 100 ML IV PRN ×3 (00:15→20:45)
[2020-09-30] MEDS: ROCURONIUM BROMIDE 1,250 MG in SODIUM CHLORIDE 0.9% 250ML 125 ML IV SCH (05:59)
[2020-09-30 06:06] LABS: BASOPHILS % 0.4 % (0.0-1.0); EOSINOPHILS # (AUTO) 0.4 (0.0-0.4); EOSINOPHILS % 3.8 % (0.0-6.0); HEMOGLOBIN 7.7 g/dL (12.0-16.0); LYMPHOCYTES # (AUTO) 0.8 (1.0-3.2); LYMPHOCYTES % 7.3 % (18.0-39.1); MEAN CORPUSCULAR HEMOGLOBIN 28.4 pg (28-32); MEAN CORPUSCULAR HGB CONC 28.5 g/dL (31-35); MEAN CORPUSCULAR VOLUME 99.6 fL (81-99); MONOCYTES # (AUTO) 0.6 (0.2-0.8); MONOCYTES % 5.4 % (4.4-11.3); NEUTROPHILS # (AUTO) 8.5 (2.1-6.9); NEUTROPHILS % 82.1 % (38.7-80.0); PLATELET COUNT 245 x10e3/uL (140-360); RED BLOOD COUNT 2.71 x10e6/uL (3.6-5.1); RED CELL DISTRIBUTION WIDTH 19.5 % (11.7-14.4)
[2020-09-30 06:41] LABS: ALANINE AMINOTRANSFERASE 21 IU/L (0-55); ALBUMIN 2.4 g/dL (3.5-5.0); ALBUMIN/GLOBULIN RATIO 0.6 (0.8-2.0); ALKALINE PHOSPHATASE 156 IU/L (40-150); ANION GAP 9.4 mmol/L (8-16); BLOOD UREA NITROGEN 16 mg/dL (7-26); BUN/CREATININE RATIO 36 (6-25); CALCIUM 8.6 mg/dL (8.4-10.2); CARBON DIOXIDE 32 mmol/L (22-29); CHLORIDE 98 mmol/L (98-107); CREATININE, SERUM 0.44 mg/dL (0.57-1.11); EST GLOMERULAR FILTRATION RATE > 60 ML/MIN (60-); GLUCOSE 121 mg/dL (74-118); POTASSIUM 4.4 mmol/L (3.5-5.1); SODIUM 135 mmol/L (136-145)
[2020-09-30 07:57] LABS: ABG HCO3 32 mmol/L (22-26); ABG PCO2 64 mmHg (35-45); ABG PH 7.31 (7.35-7.45); ABG PO2 124 mmHg (80-105); ABG TCO2 34
[2020-09-30] MEDS: ACETAZOLAMIDE 250 MG TAB PO SCH ×2 (08:49→20:46)
[2020-09-30] MEDS: DOCUSATE SODIUM LIQD 100 MG/10 ML UDC NG SCH (08:49)
[2020-09-30] MEDS: BALSAM PERU/CASTOR OIL 60 GM OINT...G. TP SCH (08:50)
[2020-09-30] MEDS: ERTUGLIFLOZIN PIDOLATE 5 MG PO SCH (08:50)
[2020-09-30] MEDS ORDERED: MIDAZOLAM HCL 5MG/ML 10ML VIAL 100 ML BAG IV ONE (13:25)
[2020-09-30] MEDS ORDERED: FENTANYL 2,000 MCG/250 ML BAG ONE (13:25)
[2020-09-30 15:41] LABS: ABG HCO3 33 mmol/L (22-26); ABG PCO2 68 mmHg (35-45); ABG PH 7.29 (7.35-7.45); ABG PO2 71 mmHg (80-105); ABG TCO2 35
[2020-09-30] MEDS: FONDAPARINUX SODIUM 10 MG/0.8 ML SYR SQ SCH (17:29)
[2020-09-30] MEDS: INSULIN REGULAR, HUMAN 3ML VL 100 UNIT in SODIUM CHLORIDE 0.9% 100 ML 99 ML IV SCH ×2 (18:49)
[2020-10-01] VITALS (24 sets, daily range): BP systolic 10–147; BP diastolic 42–60
[2020-10-01] MEDS: FENTANYL 2000MCG/NS 250 250 ML IV PRN ×4 (00:13→23:18)
[2020-10-01] MEDS: MIDAZOLAM HCL 5MG/ML 10ML VIAL 100 ML IV PRN ×3 (03:48→16:47)
[2020-10-01 05:27] LABS: BASOPHILS % 0.2 % (0.0-1.0); EOSINOPHILS # (AUTO) 0.2 (0.0-0.4); EOSINOPHILS % 2.4 % (0.0-6.0); HEMATOCRIT 26.7 % (34.2-44.1); LYMPHOCYTES # (AUTO) 0.8 (1.0-3.2); LYMPHOCYTES % 9.4 % (18.0-39.1); MEAN CORPUSCULAR HEMOGLOBIN 29.6 pg (28-32); MEAN CORPUSCULAR VOLUME 98.9 fL (81-99); MONOCYTES # (AUTO) 0.6 (0.2-0.8); MONOCYTES % 6.9 % (4.4-11.3); NEUTROPHILS # (AUTO) 6.8 (2.1-6.9); NEUTROPHILS % 80.1 % (38.7-80.0); PLATELET COUNT 251 x10e3/uL (140-360); RED CELL DISTRIBUTION WIDTH 19.8 % (11.7-14.4)
[2020-10-01 05:55] LABS: ALANINE AMINOTRANSFERASE 17 IU/L (0-55); ALBUMIN 2.2 g/dL (3.5-5.0); ALBUMIN/GLOBULIN RATIO 0.6 (0.8-2.0); ALKALINE PHOSPHATASE 140 IU/L (40-150); BLOOD UREA NITROGEN 16 mg/dL (7-26); BUN/CREATININE RATIO 38 (6-25); CALCIUM 8.3 mg/dL (8.4-10.2); CARBON DIOXIDE 31 mmol/L (22-29); CHLORIDE 99 mmol/L (98-107); CREATININE, SERUM 0.42 mg/dL (0.57-1.11); EST GLOMERULAR FILTRATION RATE > 60 ML/MIN (60-); GLUCOSE 88 mg/dL (74-118); SODIUM 137 mmol/L (136-145)
[2020-10-01 07:37] LABS: ABG HCO3 32 mmol/L (22-26); ABG PCO2 70 mmHg (35-45); ABG PH 7.27 (7.35-7.45); ABG PO2 72 mmHg (80-105)
[2020-10-01 07:38] LABS: ABG TCO2 34
[2020-10-01] MEDS: ERTUGLIFLOZIN PIDOLATE 5 MG PO SCH (08:33)
[2020-10-01] MEDS: BALSAM PERU/CASTOR OIL 60 GM OINT...G. TP SCH (08:33)
[2020-10-01] MEDS: DOCUSATE SODIUM LIQD 100 MG/10 ML UDC NG SCH (08:53)
[2020-10-01] MEDS ORDERED: ALBUMIN 25% 25GM 100ML 0.25 GM/ML BTL IV SCH (14:00)
[2020-10-01] MEDS: FUROSEMIDE INJ 10 MG/ML 4 ML VIAL IV SCH ×2 (15:05→23:08)
[2020-10-01] MEDS: ALBUMIN 25% 25GM 100ML 100 ML IV SCH ×2 (15:05→23:08)
[2020-10-01] MEDS: ACETAZOLAMIDE 500 MG CAP PO SCH ×2 (15:06→23:08)
[2020-10-01] MEDS: FONDAPARINUX SODIUM 10 MG/0.8 ML SYR SQ SCH (17:10)
[2020-10-02] VITALS (25 sets, daily range): BP systolic 110–158; BP diastolic 52–68
[2020-10-02] MEDS: ROCURONIUM BROMIDE 1,250 MG in SODIUM CHLORIDE 0.9% 250ML 125 ML IV SCH ×2 (00:03→07:50)
[2020-10-02] MEDS: MIDAZOLAM HCL 5MG/ML 10ML VIAL 100 ML IV PRN ×2 (00:21→18:41)
[2020-10-02] MEDS: ALBUMIN 25% 25GM 100ML 100 ML IV SCH (05:49)
[2020-10-02 05:52] LABS: BASOPHILS % 0.3 % (0.0-1.0); EOSINOPHILS # (AUTO) 0.3 (0.0-0.4); EOSINOPHILS % 2.6 % (0.0-6.0); HEMATOCRIT 26.1 % (34.2-44.1); HEMOGLOBIN 7.9 g/dL (12.0-16.0); LYMPHOCYTES # (AUTO) 0.7 (1.0-3.2); LYMPHOCYTES % 6.6 % (18.0-39.1); MEAN CORPUSCULAR HGB CONC 30.3 g/dL (31-35); MEAN CORPUSCULAR VOLUME 99.2 fL (81-99); MONOCYTES # (AUTO) 0.7 (0.2-0.8); MONOCYTES % 6.8 % (4.4-11.3); NEUTROPHILS # (AUTO) 8.9 (2.1-6.9); PLATELET COUNT 272 x10e3/uL (140-360); RED BLOOD COUNT 2.63 x10e6/uL (3.6-5.1); RED CELL DISTRIBUTION WIDTH 20.6 % (11.7-14.4)
[2020-10-02 06:31] LABS: ALANINE AMINOTRANSFERASE 17 IU/L (0-55); ALBUMIN 3.2 g/dL (3.5-5.0); ALBUMIN/GLOBULIN RATIO 0.9 (0.8-2.0); ALKALINE PHOSPHATASE 139 IU/L (40-150); ANION GAP 12.3 mmol/L (8-16); BLOOD UREA NITROGEN 17 mg/dL (7-26); BUN/CREATININE RATIO 37 (6-25); CALCIUM 8.6 mg/dL (8.4-10.2); CARBON DIOXIDE 33 mmol/L (22-29); CHLORIDE 96 mmol/L (98-107); CREATININE, SERUM 0.46 mg/dL (0.57-1.11); EST GLOMERULAR FILTRATION RATE > 60 ML/MIN (60-); GLUCOSE 128 mg/dL (74-118); POTASSIUM 3.3 mmol/L (3.5-5.1); SODIUM 138 mmol/L (136-145)
[2020-10-02] MEDS: BALSAM PERU/CASTOR OIL 60 GM OINT...G. TP SCH (07:50)
[2020-10-02] MEDS: DOCUSATE SODIUM LIQD 100 MG/10 ML UDC NG SCH (07:50)
[2020-10-02] MEDS: ERTUGLIFLOZIN PIDOLATE 5 MG PO SCH (07:50)
[2020-10-02 08:58] LABS: ABG HCO3 35 mmol/L (22-26); ABG PCO2 67 mmHg (35-45); ABG PH 7.32 (7.35-7.45); ABG PO2 63 mmHg (80-105); ABG TCO2 37
[2020-10-02] MEDS ORDERED: ACETAZOLAMIDE 500 MG CAP PO SCH (09:00)
[2020-10-02] MEDS: FUROSEMIDE INJ 10 MG/ML 4 ML VIAL IV SCH (15:29)
[2020-10-02] MEDS: FONDAPARINUX SODIUM 10 MG/0.8 ML SYR SQ SCH (16:00)
[2020-10-02] MEDS: FENTANYL 2000MCG/NS 250 250 ML IV PRN (21:50)
[2020-10-02] MEDS: INSULIN REGULAR, HUMAN 3ML VL 100 UNIT in SODIUM CHLORIDE 0.9% 100 ML 99 ML IV SCH ×2 (23:00)
[2020-10-03] VITALS (21 sets, daily range): BP systolic 91–134; BP diastolic 47–84
[2020-10-03] MEDS: MIDAZOLAM HCL 5MG/ML 10ML VIAL 100 ML IV PRN ×3 (01:13→21:19)
[2020-10-03] MEDS: FENTANYL 2000MCG/NS 250 250 ML IV PRN ×3 (05:16→22:21)
[2020-10-03 05:21] LABS: BASOPHILS % 0.2 % (0.0-1.0); EOSINOPHILS # (AUTO) 0.1 (0.0-0.4); EOSINOPHILS % 0.3 % (0.0-6.0); HEMOGLOBIN 7.9 g/dL (12.0-16.0); LYMPHOCYTES # (AUTO) 0.8 (1.0-3.2); LYMPHOCYTES % 4.6 % (18.0-39.1); MEAN CORPUSCULAR HEMOGLOBIN 28.5 pg (28-32); MEAN CORPUSCULAR HGB CONC 29.3 g/dL (31-35); MEAN CORPUSCULAR VOLUME 97.5 fL (81-99); MONOCYTES # (AUTO) 1.2 (0.2-0.8); NEUTROPHILS % 86.5 % (38.7-80.0); PLATELET COUNT 253 x10e3/uL (140-360); RED BLOOD COUNT 2.77 x10e6/uL (3.6-5.1); RED CELL DISTRIBUTION WIDTH 19.5 % (11.7-14.4)
[2020-10-03 05:40] LABS: ALANINE AMINOTRANSFERASE 17 IU/L (0-55); ALBUMIN 2.8 g/dL (3.5-5.0); ALBUMIN/GLOBULIN RATIO 0.8 (0.8-2.0); ALKALINE PHOSPHATASE 135 IU/L (40-150); ANION GAP 13.8 mmol/L (8-16); BLOOD UREA NITROGEN 16 mg/dL (7-26); BUN/CREATININE RATIO 38 (6-25); CALCIUM 8.6 mg/dL (8.4-10.2); CARBON DIOXIDE 33 mmol/L (22-29); CHLORIDE 95 mmol/L (98-107); CREATININE, SERUM 0.42 mg/dL (0.57-1.11); EST GLOMERULAR FILTRATION RATE > 60 ML/MIN (60-); GLUCOSE 115 mg/dL (74-118); SODIUM 139 mmol/L (136-145)
[2020-10-03 05:50] LABS: POTASSIUM 2.8 mmol/L (3.5-5.1)
[2020-10-03] MEDS ORDERED: POTASSIUM CHLORIDE 20MEQ/100ML 200 ML IV ONE (06:45)
[2020-10-03 08:00] LABS: BAND NEUTROPHILS % (MANUAL) 7 %; EOSINOPHILS % (MANUAL) 1 % (0-7); LYMPHOCYTES % (MANUAL) 4 % (19-48); MONOCYTES % (MANUAL) 5 % (3.4-9.0); NEUTROPHILS % (MANUAL) 83 % (40-74); NUCLEATED RED BLOOD CELLS 1
[2020-10-03 08:01] LABS: HYPOCHROMASIA SLIGHT; PLATELET ESTIMATE ADEQUATE; PLATELET MORPHOLOGY COMMENT NORMAL; RBC MORPHOLOGY COMMENT NORMAL
[2020-10-03] MEDS ORDERED: ACETAZOLAMIDE 250 MG TAB NG ONE ×2 (09:00)
[2020-10-03] MEDS: ERTUGLIFLOZIN PIDOLATE 5 MG PO SCH (09:00)
[2020-10-03 09:13] LABS: ABG HCO3 38 mmol/L (22-26); ABG PCO2 65 mmHg (35-45); ABG PH 7.38 (7.35-7.45); ABG PO2 111 mmHg (80-105); ABG TCO2 40
[2020-10-03] MEDS ORDERED: VANCOMYCIN 1GM/NS 250 ML 250 ML IV ONE (09:45)
[2020-10-03] MEDS: FUROSEMIDE INJ 10 MG/ML 4 ML VIAL IV SCH ×2 (09:47)
[2020-10-03] MEDS: BALSAM PERU/CASTOR OIL 60 GM OINT...G. TP SCH (09:47)
[2020-10-03] MEDS: DOCUSATE SODIUM LIQD 100 MG/10 ML UDC NG SCH (09:47)
[2020-10-03] MEDS: ACETAZOLAMIDE 500 MG CAP PO SCH ×2 (10:00→16:45)
[2020-10-03] MEDS: ACETAZOLAMIDE 250 MG TAB PO SCH ×2 (10:58→22:19)
[2020-10-03 11:07] LABS: CLARITY,URINE CLEAR (CLEAR); COLOR,URINE YELLOW (YELLOW); KETONES,URINE NEGATIVE (NEGATIVE); LEUKOCYTE ESTERASE ,URINE SMALL (NEGATIVE); NITRITE,URINE NEGATIVE (NEGATIVE); PROTEIN,URINE DIPSTICK NEGATIVE (NEGATIVE)
[2020-10-03 11:30] LABS: BACTERIA,URINE MODERATE /HPF; CALCIUM OXALATE CRYSTALS,UR FEW (FEW)
[2020-10-03 11:31] LABS: YEAST,URINE MANY
[2020-10-03 11:33] LABS: EPITHELIAL CELLS,URINE RARE /LPF
[2020-10-03 11:35] LABS: MUCUS,URINE MANY (RARE)
[2020-10-03] MEDS: MEROPENEM 1GRAM 1 GM in SODIUM CHLORIDE 0.9% 100 ML 100 ML IV SCH ×3 (13:45→22:19)
[2020-10-03] MEDS: ROCURONIUM BROMIDE 1,250 MG in SODIUM CHLORIDE 0.9% 250ML 125 ML IV SCH (16:45)
[2020-10-03 16:54] LABS: ABG HCO3 36 mmol/L (22-26); ABG PCO2 64 mmHg (35-45); ABG PH 7.35 (7.35-7.45); ABG PO2 50 mmHg (80-105); ABG TCO2 37
[2020-10-03] MEDS: FONDAPARINUX SODIUM 10 MG/0.8 ML SYR SQ SCH (17:21)
[2020-10-04] VITALS (25 sets, daily range): BP systolic 98–119; BP diastolic 50–58
[2020-10-04] MEDS: MIDAZOLAM HCL 5MG/ML 10ML VIAL 100 ML IV PRN ×2 (04:00→20:40)
[2020-10-04 05:00] LABS: BASOPHILS % 0.2 % (0.0-1.0); EOSINOPHILS # (AUTO) 0.3 (0.0-0.4); EOSINOPHILS % 2.1 % (0.0-6.0); HEMATOCRIT 26.5 % (34.2-44.1); HEMOGLOBIN 7.6 g/dL (12.0-16.0); LYMPHOCYTES # (AUTO) 1.3 (1.0-3.2); LYMPHOCYTES % 10.1 % (18.0-39.1); MEAN CORPUSCULAR HEMOGLOBIN 27.7 pg (28-32); MEAN CORPUSCULAR HGB CONC 28.7 g/dL (31-35); MEAN CORPUSCULAR VOLUME 96.7 fL (81-99); MONOCYTES # (AUTO) 0.8 (0.2-0.8); MONOCYTES % 6.1 % (4.4-11.3); NEUTROPHILS # (AUTO) 10.4 (2.1-6.9); NEUTROPHILS % 80.7 % (38.7-80.0); PLATELET COUNT 251 x10e3/uL (140-360); RED BLOOD COUNT 2.74 x10e6/uL (3.6-5.1)
[2020-10-04 05:15] LABS: ALANINE AMINOTRANSFERASE 17 IU/L (0-55); ALBUMIN 2.4 g/dL (3.5-5.0); ALBUMIN/GLOBULIN RATIO 0.6 (0.8-2.0); ALKALINE PHOSPHATASE 133 IU/L (40-150); ANION GAP 12.4 mmol/L (8-16); BLOOD UREA NITROGEN 21 mg/dL (7-26); BUN/CREATININE RATIO 46 (6-25); CALCIUM 8.5 mg/dL (8.4-10.2); CARBON DIOXIDE 32 mmol/L (22-29); CHLORIDE 96 mmol/L (98-107); CREATININE, SERUM 0.46 mg/dL (0.57-1.11); EST GLOMERULAR FILTRATION RATE > 60 ML/MIN (60-); GLUCOSE 135 mg/dL (74-118); SODIUM 137 mmol/L (136-145)
[2020-10-04 05:22] LABS: POTASSIUM 3.4 mmol/L (3.5-5.1)
[2020-10-04] MEDS: MEROPENEM 1GRAM 1 GM in SODIUM CHLORIDE 0.9% 100 ML 100 ML IV SCH ×3 (06:23→21:25)
[2020-10-04] MEDS: FENTANYL 2000MCG/NS 250 250 ML IV PRN ×3 (06:23→22:57)
[2020-10-04] MEDS: ACETAZOLAMIDE 500 MG CAP PO SCH (07:26)
[2020-10-04] MEDS: DOCUSATE SODIUM LIQD 100 MG/10 ML UDC NG SCH (08:26)
[2020-10-04] MEDS: BALSAM PERU/CASTOR OIL 60 GM OINT...G. TP SCH (08:26)
[2020-10-04] MEDS: ERTUGLIFLOZIN PIDOLATE 5 MG PO SCH (08:26)
[2020-10-04 08:57] LABS: ABG PCO2 62 mmHg (35-45); ABG PH 7.35 (7.35-7.45)
[2020-10-04 08:58] LABS: ABG HCO3 34 mmol/L (22-26); ABG PO2 64 mmHg (80-105); ABG TCO2 36
[2020-10-04] MEDS: ACETAZOLAMIDE 250 MG TAB PO SCH (09:24)
[2020-10-04] MEDS: ALBUMIN 25% 25GM 100ML 0.25 GM/ML BTL IV SCH ×2 (15:20→21:25)
[2020-10-04] MEDS: FUROSEMIDE INJ 10 MG/ML 4 ML VIAL IV SCH ×2 (15:20→21:25)
[2020-10-04] MEDS: FONDAPARINUX SODIUM 10 MG/0.8 ML SYR SQ SCH (16:28)
[2020-10-04] MEDS: ROCURONIUM BROMIDE 1,250 MG in SODIUM CHLORIDE 0.9% 250ML 125 ML IV SCH (16:28)
[2020-10-05] VITALS (25 sets, daily range): BP systolic 91–141; BP diastolic 54–72
[2020-10-05 05:08] LABS: BASOPHILS % 0.2 % (0.0-1.0); EOSINOPHILS # (AUTO) 0.2 (0.0-0.4); EOSINOPHILS % 1.8 % (0.0-6.0); HEMATOCRIT 26.5 % (34.2-44.1); HEMOGLOBIN 7.6 g/dL (12.0-16.0); LYMPHOCYTES # (AUTO) 1.3 (1.0-3.2); LYMPHOCYTES % 12.6 % (18.0-39.1); MEAN CORPUSCULAR HEMOGLOBIN 27.7 pg (28-32); MEAN CORPUSCULAR HGB CONC 28.7 g/dL (31-35); MEAN CORPUSCULAR VOLUME 96.7 fL (81-99); MONOCYTES # (AUTO) 0.7 (0.2-0.8); NEUTROPHILS % 77.2 % (38.7-80.0); PLATELET COUNT 258 x10e3/uL (140-360); RED BLOOD COUNT 2.74 x10e6/uL (3.6-5.1); RED CELL DISTRIBUTION WIDTH 20.1 % (11.7-14.4)
[2020-10-05] MEDS ORDERED: HEPARIN SOD/SOD CHLORIDE 1,000 ML ONE (05:13)
[2020-10-05 05:23] LABS: ALANINE AMINOTRANSFERASE 19 IU/L (0-55); ALBUMIN/GLOBULIN RATIO 0.9 (0.8-2.0); ALKALINE PHOSPHATASE 144 IU/L (40-150); ANION GAP 14.3 mmol/L (8-16); BLOOD UREA NITROGEN 22 mg/dL (7-26); BUN/CREATININE RATIO 49 (6-25); CALCIUM 8.4 mg/dL (8.4-10.2); CARBON DIOXIDE 32 mmol/L (22-29); CHLORIDE 94 mmol/L (98-107); CREATININE, SERUM 0.45 mg/dL (0.57-1.11); EST GLOMERULAR FILTRATION RATE > 60 ML/MIN (60-); GLUCOSE 124 mg/dL (74-118); POTASSIUM 3.3 mmol/L (3.5-5.1); SODIUM 137 mmol/L (136-145)
[2020-10-05] MEDS: MEROPENEM 1GRAM 1 GM in SODIUM CHLORIDE 0.9% 100 ML 100 ML IV SCH ×3 (05:41→21:39)
[2020-10-05] MEDS: ALBUMIN 25% 25GM 100ML 0.25 GM/ML BTL IV SCH (06:48)
[2020-10-05] MEDS: ERTUGLIFLOZIN PIDOLATE 5 MG PO SCH (08:30)
[2020-10-05] MEDS: FUROSEMIDE INJ 10 MG/ML 4 ML VIAL IV SCH (08:49)
[2020-10-05] MEDS: BALSAM PERU/CASTOR OIL 60 GM OINT...G. TP SCH (08:49)
[2020-10-05] MEDS: DOCUSATE SODIUM LIQD 100 MG/10 ML UDC NG SCH (08:49)
[2020-10-05 09:53] LABS: ABG HCO3 35 mmol/L (22-26); ABG PCO2 68 mmHg (35-45); ABG PH 7.32 (7.35-7.45); ABG PO2 61 mmHg (80-105)
[2020-10-05 09:54] LABS: ABG TCO2 37
[2020-10-05] MEDS ORDERED: POTASSIUM CHLORIDE 20MEQ/100ML 200 ML IV ONE (11:00)
[2020-10-05] MEDS: FUROSEMIDE INJ 100 MG in SODIUM CHLORIDE 0.9% 100 ML 90 ML IV SCH (11:25)
[2020-10-05] MEDS: ROCURONIUM BROMIDE 1,250 MG in SODIUM CHLORIDE 0.9% 250ML 125 ML IV SCH (18:04)
[2020-10-05] MEDS: MIDAZOLAM HCL 5MG/ML 10ML VIAL 100 ML IV PRN (21:47)
[2020-10-06] VITALS (26 sets, daily range): BP systolic 96–143; BP diastolic 57–87
[2020-10-06] MEDS: FENTANYL 2000MCG/NS 250 250 ML IV PRN ×3 (01:06→17:04)
[2020-10-06] MEDS: MIDAZOLAM HCL 5MG/ML 10ML VIAL 100 ML IV PRN ×2 (03:42→18:03)
[2020-10-06] MEDS: MEROPENEM 1GRAM 1 GM in SODIUM CHLORIDE 0.9% 100 ML 100 ML IV SCH ×3 (05:18→22:05)
[2020-10-06 05:59] LABS: BASOPHILS % 0.4 % (0.0-1.0); EOSINOPHILS # (AUTO) 0.3 (0.0-0.4); EOSINOPHILS % 2.7 % (0.0-6.0); HEMATOCRIT 28.2 % (34.2-44.1); HEMOGLOBIN 8.1 g/dL (12.0-16.0); LYMPHOCYTES # (AUTO) 1.5 (1.0-3.2); LYMPHOCYTES % 12.9 % (18.0-39.1); MEAN CORPUSCULAR HEMOGLOBIN 27.2 pg (28-32); MEAN CORPUSCULAR HGB CONC 28.7 g/dL (31-35); MEAN CORPUSCULAR VOLUME 94.6 fL (81-99); MONOCYTES # (AUTO) 1.1 (0.2-0.8); MONOCYTES % 9.3 % (4.4-11.3); NEUTROPHILS # (AUTO) 8.3 (2.1-6.9); NEUTROPHILS % 72.8 % (38.7-80.0); PLATELET COUNT 300 x10e3/uL (140-360); RED BLOOD COUNT 2.98 x10e6/uL (3.6-5.1)
[2020-10-06 06:21] LABS: ALANINE AMINOTRANSFERASE 18 IU/L (0-55); ALBUMIN 2.9 g/dL (3.5-5.0); ALBUMIN/GLOBULIN RATIO 0.8 (0.8-2.0); ALKALINE PHOSPHATASE 156 IU/L (40-150); ANION GAP 12.2 mmol/L (8-16); CALCIUM 8.1 mg/dL (8.4-10.2); CARBON DIOXIDE 36 mmol/L (22-29); CHLORIDE 93 mmol/L (98-107); POTASSIUM 3.2 mmol/L (3.5-5.1); SODIUM 138 mmol/L (136-145)
[2020-10-06] MEDS: FUROSEMIDE INJ 100 MG in SODIUM CHLORIDE 0.9% 100 ML 90 ML IV SCH ×2 (06:34→16:37)
[2020-10-06 06:50] LABS: BLOOD UREA NITROGEN 17 mg/dL (7-26); BUN/CREATININE RATIO 40 (6-25); CREATININE, SERUM 0.43 mg/dL (0.57-1.11); EST GLOMERULAR FILTRATION RATE > 60 ML/MIN (60-); GLUCOSE 131 mg/dL (74-118)
[2020-10-06] MEDS: ERTUGLIFLOZIN PIDOLATE 5 MG PO SCH (07:43)
[2020-10-06 08:54] LABS: ABG HCO3 40 mmol/L (22-26); ABG PCO2 64 mmHg (35-45); ABG PH 7.41 (7.35-7.45); ABG PO2 155 mmHg (80-105); ABG TCO2 42
[2020-10-06] MEDS: BALSAM PERU/CASTOR OIL 60 GM OINT...G. TP SCH (09:26)
[2020-10-06] MEDS: ACETAZOLAMIDE 500 MG CAP PO SCH ×2 (09:26→22:02)
[2020-10-06] MEDS: DOCUSATE SODIUM LIQD 100 MG/10 ML UDC NG SCH (09:26)
[2020-10-06] MEDS ORDERED: POTASSIUM CHLORIDE 20MEQ/100ML 200 ML IV ONE (10:00)
[2020-10-06] MEDS ORDERED: MIDAZOLAM HCL 5MG/ML 10ML VIAL 100 ML BAG IV ONE (10:24)
[2020-10-06] MEDS ORDERED: FENTANYL 2,000 MCG/250 ML BAG ONE (10:24)
[2020-10-06] MEDS: ROCURONIUM BROMIDE 1,250 MG in SODIUM CHLORIDE 0.9% 250ML 125 ML IV SCH (17:30)
[2020-10-06] MEDS: FONDAPARINUX SODIUM 10 MG/0.8 ML SYR SQ SCH (17:30)
[2020-10-06] MEDS: POTASSIUM CHLORIDE 20MEQ/100ML 100 ML IV SCH ×2 (18:00→18:51)
[2020-10-06] MEDS ORDERED: IOPAMIDOL 370 MG/ML 200 ML INFUS..BTL INJ ONE (18:14)
[2020-10-06] MEDS ORDERED: SODIUM CHLORIDE 0.9% 50ML 0 ML ONE (18:14)
[2020-10-07] VITALS (20 sets, daily range): BP systolic 91–129; BP diastolic 57–65
[2020-10-07] MEDS: MIDAZOLAM HCL 5MG/ML 10ML VIAL 100 ML IV PRN ×3 (00:05→17:37)
[2020-10-07] MEDS: INSULIN REGULAR, HUMAN 3ML VL 100 UNIT in SODIUM CHLORIDE 0.9% 100 ML 99 ML IV SCH ×2 (00:14)
[2020-10-07] MEDS: FENTANYL 2000MCG/NS 250 250 ML IV PRN ×3 (01:52→17:38)
[2020-10-07] MEDS: FUROSEMIDE INJ 100 MG in SODIUM CHLORIDE 0.9% 100 ML 90 ML IV SCH (04:20)
[2020-10-07 06:13] LABS: BASOPHILS # (AUTO) 0.1 (0.0-0.1); BASOPHILS % 0.6 % (0.0-1.0); EOSINOPHILS # (AUTO) 0.3 (0.0-0.4); EOSINOPHILS % 2.8 % (0.0-6.0); HEMATOCRIT 26.9 % (34.2-44.1); HEMOGLOBIN 7.8 g/dL (12.0-16.0); LYMPHOCYTES # (AUTO) 1.5 (1.0-3.2); LYMPHOCYTES % 12.7 % (18.0-39.1); MEAN CORPUSCULAR VOLUME 93.1 fL (81-99); MONOCYTES # (AUTO) 1.1 (0.2-0.8); MONOCYTES % 9.9 % (4.4-11.3); NEUTROPHILS # (AUTO) 8.3 (2.1-6.9); NEUTROPHILS % 72.1 % (38.7-80.0); PLATELET COUNT 316 x10e3/uL (140-360); RED BLOOD COUNT 2.89 x10e6/uL (3.6-5.1); RED CELL DISTRIBUTION WIDTH 19.7 % (11.7-14.4)
[2020-10-07] MEDS: MEROPENEM 1GRAM 1 GM in SODIUM CHLORIDE 0.9% 100 ML 100 ML IV SCH ×3 (06:13→22:26)
[2020-10-07 06:35] LABS: ALANINE AMINOTRANSFERASE 18 IU/L (0-55); ALBUMIN 2.8 g/dL (3.5-5.0); ALBUMIN/GLOBULIN RATIO 0.8 (0.8-2.0); ALKALINE PHOSPHATASE 132 IU/L (40-150); ANION GAP 10.3 mmol/L (8-16); BLOOD UREA NITROGEN 14 mg/dL (7-26); BUN/CREATININE RATIO 32 (6-25); CHLORIDE 87 mmol/L (98-107); CREATININE, SERUM 0.44 mg/dL (0.57-1.11); EST GLOMERULAR FILTRATION RATE > 60 ML/MIN (60-); GLUCOSE 135 mg/dL (74-118); POTASSIUM 3.3 mmol/L (3.5-5.1); SODIUM 135 mmol/L (136-145)
[2020-10-07 06:47] LABS: CARBON DIOXIDE 41 mmol/L (22-29)
[2020-10-07] MEDS: BALSAM PERU/CASTOR OIL 60 GM OINT...G. TP SCH (08:23)
[2020-10-07] MEDS: ACETAZOLAMIDE 500 MG CAP PO SCH (08:23)
[2020-10-07] MEDS: DOCUSATE SODIUM LIQD 100 MG/10 ML UDC NG SCH (08:23)
[2020-10-07 09:00] LABS: ABG PCO2 65 mmHg (35-45); ABG PH 7.43 (7.35-7.45); ABG PO2 76 mmHg (80-105)
[2020-10-07 09:01] LABS: ABG HCO3 44 mmol/L (22-26); ABG TCO2 45
[2020-10-07] MEDS ORDERED: POTASSIUM CHLORIDE 20MEQ/100ML 200 ML IV ONE (09:30)
[2020-10-07] MEDS: LACTULOSE SYRUP 20 GM/30 ML UDC PO PRN (09:33)
[2020-10-07] MEDS: ROCURONIUM BROMIDE 1,250 MG in SODIUM CHLORIDE 0.9% 250ML 125 ML IV SCH (17:07)
[2020-10-07] MEDS: FONDAPARINUX SODIUM 10 MG/0.8 ML SYR SQ SCH (18:36)
[2020-10-08] VITALS (23 sets, daily range): BP systolic 98–129; BP diastolic 59–67
[2020-10-08] MEDS: METOCLOPRAMIDE HCL 10 MG/2ML VIAL IV SCH ×4 (00:13→17:01)
[2020-10-08] MEDS: INSULIN REGULAR, HUMAN 3ML VL 100 UNIT in SODIUM CHLORIDE 0.9% 100 ML 99 ML IV SCH ×2 (00:14)
[2020-10-08] MEDS: MIDAZOLAM HCL 5MG/ML 10ML VIAL 100 ML IV PRN ×4 (00:59→21:37)
[2020-10-08] MEDS: FENTANYL 2000MCG/NS 250 250 ML IV PRN ×3 (02:15→18:46)
[2020-10-08] MEDS: MEROPENEM 1GRAM 1 GM in SODIUM CHLORIDE 0.9% 100 ML 100 ML IV SCH ×3 (05:21→21:39)
[2020-10-08 05:32] LABS: BASOPHILS # (AUTO) 0.1 (0.0-0.1); BASOPHILS % 0.6 % (0.0-1.0); EOSINOPHILS # (AUTO) 0.4 (0.0-0.4); EOSINOPHILS % 3.4 % (0.0-6.0); HEMATOCRIT 27.7 % (34.2-44.1); HEMOGLOBIN 8.1 g/dL (12.0-16.0); LYMPHOCYTES # (AUTO) 1.4 (1.0-3.2); LYMPHOCYTES % 11.5 % (18.0-39.1); MEAN CORPUSCULAR HEMOGLOBIN 27.3 pg (28-32); MEAN CORPUSCULAR HGB CONC 29.2 g/dL (31-35); MEAN CORPUSCULAR VOLUME 93.3 fL (81-99); MONOCYTES # (AUTO) 1.1 (0.2-0.8); MONOCYTES % 8.8 % (4.4-11.3); NEUTROPHILS # (AUTO) 8.9 (2.1-6.9); NEUTROPHILS % 73.5 % (38.7-80.0); PLATELET COUNT 324 x10e3/uL (140-360); RED BLOOD COUNT 2.97 x10e6/uL (3.6-5.1); RED CELL DISTRIBUTION WIDTH 19.8 % (11.7-14.4)
[2020-10-08 06:16] LABS: ALANINE AMINOTRANSFERASE 19 IU/L (0-55); ALBUMIN 2.8 g/dL (3.5-5.0); ALBUMIN/GLOBULIN RATIO 0.7 (0.8-2.0); ALKALINE PHOSPHATASE 124 IU/L (40-150); ANION GAP 11.7 mmol/L (8-16); BLOOD UREA NITROGEN 14 mg/dL (7-26); BUN/CREATININE RATIO 33 (6-25); CALCIUM 8.4 mg/dL (8.4-10.2); CARBON DIOXIDE 34 mmol/L (22-29); CHLORIDE 91 mmol/L (98-107); CREATININE, SERUM 0.43 mg/dL (0.57-1.11); EST GLOMERULAR FILTRATION RATE > 60 ML/MIN (60-); GLUCOSE 131 mg/dL (74-118); POTASSIUM 3.7 mmol/L (3.5-5.1); SODIUM 133 mmol/L (136-145)
[2020-10-08] MEDS: DOCUSATE SODIUM LIQD 100 MG/10 ML UDC NG SCH (08:57)
[2020-10-08] MEDS: BALSAM PERU/CASTOR OIL 60 GM OINT...G. TP SCH (08:57)
[2020-10-08 09:01] LABS: ABG PCO2 68 mmHg (35-45); ABG PH 7.33 (7.35-7.45)
[2020-10-08 09:02] LABS: ABG HCO3 36 mmol/L (22-26); ABG PO2 68 mmHg (80-105); ABG TCO2 38
[2020-10-08] MEDS: LACTULOSE SYRUP 20 GM/30 ML UDC PO PRN (14:10)
[2020-10-08] MEDS: ACETAMINOPHEN 325 MG/10 ML UDC NG PRN (14:10)
[2020-10-08] MEDS: ROCURONIUM BROMIDE 1,250 MG in SODIUM CHLORIDE 0.9% 250ML 125 ML IV SCH (17:01)
[2020-10-08] MEDS: FONDAPARINUX SODIUM 10 MG/0.8 ML SYR SQ SCH (17:44)
[2020-10-09] VITALS (25 sets, daily range): BP systolic 107–127; BP diastolic 60–69
[2020-10-09] MEDS: LACTULOSE SYRUP 20 GM/30 ML UDC PO PRN (00:36)
[2020-10-09] MEDS: METOCLOPRAMIDE HCL 10 MG/2ML VIAL IV SCH ×4 (00:36→16:36)
[2020-10-09] MEDS: FENTANYL 2000MCG/NS 250 250 ML IV PRN ×3 (01:45→17:08)
[2020-10-09] MEDS: MIDAZOLAM HCL 5MG/ML 10ML VIAL 100 ML IV PRN ×3 (03:41→17:09)
[2020-10-09] MEDS: INSULIN REGULAR, HUMAN 3ML VL 100 UNIT in SODIUM CHLORIDE 0.9% 100 ML 99 ML IV SCH ×2 (03:50)
[2020-10-09] MEDS: MEROPENEM 1GRAM 1 GM in SODIUM CHLORIDE 0.9% 100 ML 100 ML IV SCH ×3 (05:02→20:50)
[2020-10-09 06:13] LABS: BASOPHILS # (AUTO) 0.1 (0.0-0.1); EOSINOPHILS # (AUTO) 0.3 (0.0-0.4); EOSINOPHILS % 3.4 % (0.0-6.0); HEMATOCRIT 28.4 % (34.2-44.1); HEMOGLOBIN 8.1 g/dL (12.0-16.0); LYMPHOCYTES # (AUTO) 1.3 (1.0-3.2); LYMPHOCYTES % 13.7 % (18.0-39.1); MEAN CORPUSCULAR HEMOGLOBIN 27.5 pg (28-32); MEAN CORPUSCULAR HGB CONC 28.5 g/dL (31-35); MEAN CORPUSCULAR VOLUME 96.3 fL (81-99); MONOCYTES # (AUTO) 0.9 (0.2-0.8); MONOCYTES % 9.6 % (4.4-11.3); NEUTROPHILS # (AUTO) 6.7 (2.1-6.9); NEUTROPHILS % 69.2 % (38.7-80.0); PLATELET COUNT 336 x10e3/uL (140-360); RED BLOOD COUNT 2.95 x10e6/uL (3.6-5.1); RED CELL DISTRIBUTION WIDTH 19.7 % (11.7-14.4)
[2020-10-09 06:35] LABS: ALANINE AMINOTRANSFERASE 23 IU/L (0-55); ALBUMIN 2.7 g/dL (3.5-5.0); ALBUMIN/GLOBULIN RATIO 0.6 (0.8-2.0); ALKALINE PHOSPHATASE 160 IU/L (40-150); BLOOD UREA NITROGEN 19 mg/dL (7-26); BUN/CREATININE RATIO 40 (6-25); CALCIUM 8.2 mg/dL (8.4-10.2); CARBON DIOXIDE 34 mmol/L (22-29); CHLORIDE 93 mmol/L (98-107); CREATININE, SERUM 0.48 mg/dL (0.57-1.11); EST GLOMERULAR FILTRATION RATE > 60 ML/MIN (60-); GLUCOSE 132 mg/dL (74-118); SODIUM 131 mmol/L (136-145)
[2020-10-09] MEDS: BALSAM PERU/CASTOR OIL 60 GM OINT...G. TP SCH (08:25)
[2020-10-09] MEDS: DOCUSATE SODIUM LIQD 100 MG/10 ML UDC NG SCH (08:25)
[2020-10-09 09:43] LABS: ABG HCO3 35 mmol/L (22-26); ABG PCO2 68 mmHg (35-45); ABG PH 7.32 (7.35-7.45); ABG PO2 68 mmHg (80-105); ABG TCO2 37
[2020-10-09] MEDS ORDERED: FUROSEMIDE INJ 10 MG/ML 4 ML VIAL IV NR (12:45)
[2020-10-09] MEDS: FONDAPARINUX SODIUM 10 MG/0.8 ML SYR SQ SCH (16:36)
[2020-10-09] MEDS: ROCURONIUM BROMIDE 1,250 MG in SODIUM CHLORIDE 0.9% 250ML 125 ML IV SCH (16:36)
[2020-10-09] MEDS: ACETAMINOPHEN 325 MG/10 ML UDC NG PRN (20:26)
[2020-10-10] VITALS (22 sets, daily range): BP systolic 102–144; BP diastolic 55–72
[2020-10-10] MEDS: METOCLOPRAMIDE HCL 10 MG/2ML VIAL IV SCH ×4 (00:12→16:52)
[2020-10-10] MEDS: MIDAZOLAM HCL 5MG/ML 10ML VIAL 100 ML IV PRN ×2 (00:16→05:49)
[2020-10-10] MEDS: INSULIN REGULAR, HUMAN 3ML VL 100 UNIT in SODIUM CHLORIDE 0.9% 100 ML 99 ML IV SCH ×2 (01:04)
[2020-10-10] MEDS: FENTANYL 2000MCG/NS 250 250 ML IV PRN (02:50)
[2020-10-10] MEDS: MEROPENEM 1GRAM 1 GM in SODIUM CHLORIDE 0.9% 100 ML 100 ML IV SCH ×3 (05:42→20:39)
[2020-10-10 05:59] LABS: BASOPHILS # (AUTO) 0.1 (0.0-0.1); BASOPHILS % 0.9 % (0.0-1.0); EOSINOPHILS # (AUTO) 0.2 (0.0-0.4); HEMATOCRIT 28.7 % (34.2-44.1); HEMOGLOBIN 8.2 g/dL (12.0-16.0); LYMPHOCYTES # (AUTO) 1.2 (1.0-3.2); LYMPHOCYTES % 11.4 % (18.0-39.1); MEAN CORPUSCULAR HEMOGLOBIN 27.2 pg (28-32); MEAN CORPUSCULAR HGB CONC 28.6 g/dL (31-35); MONOCYTES % 9.5 % (4.4-11.3); NEUTROPHILS # (AUTO) 7.9 (2.1-6.9); NEUTROPHILS % 73.7 % (38.7-80.0); PLATELET COUNT 364 x10e3/uL (140-360); RED BLOOD COUNT 3.02 x10e6/uL (3.6-5.1); RED CELL DISTRIBUTION WIDTH 19.4 % (11.7-14.4)
[2020-10-10 06:43] LABS: ALANINE AMINOTRANSFERASE 22 IU/L (0-55); ALBUMIN 2.5 g/dL (3.5-5.0); ALBUMIN/GLOBULIN RATIO 0.5 (0.8-2.0); ALKALINE PHOSPHATASE 158 IU/L (40-150); ANION GAP 10.3 mmol/L (8-16); BLOOD UREA NITROGEN 29 mg/dL (7-26); BUN/CREATININE RATIO 59 (6-25); CALCIUM 8.5 mg/dL (8.4-10.2); CARBON DIOXIDE 32 mmol/L (22-29); CHLORIDE 93 mmol/L (98-107); CREATININE, SERUM 0.49 mg/dL (0.57-1.11); EST GLOMERULAR FILTRATION RATE > 60 ML/MIN (60-); GLUCOSE 197 mg/dL (74-118); POTASSIUM 5.3 mmol/L (3.5-5.1); SODIUM 130 mmol/L (136-145)
[2020-10-10] MEDS: DOCUSATE SODIUM LIQD 100 MG/10 ML UDC NG SCH (08:32)
[2020-10-10] MEDS: BALSAM PERU/CASTOR OIL 60 GM OINT...G. TP SCH (08:32)
[2020-10-10] MEDS ORDERED: FUROSEMIDE INJ 100 MG in SODIUM CHLORIDE 0.9% 100 ML 90 ML IV SCH (09:00)
[2020-10-10 09:30] LABS: ABG HCO3 33 mmol/L (22-26); ABG PCO2 61 mmHg (35-45); ABG PH 7.34 (7.35-7.45); ABG PO2 91 mmHg (80-105); ABG TCO2 35
[2020-10-10] MEDS: ACETAZOLAMIDE 500 MG CAP PO SCH ×2 (10:19→20:39)
[2020-10-10] MEDS: FENTANYL CITRATE INJ 2,000 MCG in SODIUM CHLORIDE 0.9% 250ML 210 ML IV SCH ×2 (10:44→18:39)
[2020-10-10] MEDS: MIDAZOLAM HCL 50 MG in SODIUM CHLORIDE 0.9% 100 ML 90 ML IV PRN ×2 (10:44→18:39)
[2020-10-10] MEDS: FUROSEMIDE INJ 100 MG in SODIUM CHLORIDE 0.9% 100 ML 90 ML IV SCH ×2 (15:37→23:58)
[2020-10-10] MEDS: ALBUMIN 25% 25GM 100ML 100 ML IV SCH (15:46)
[2020-10-10] MEDS: ROCURONIUM BROMIDE 1,250 MG in SODIUM CHLORIDE 0.9% 250ML 125 ML IV SCH (18:39)
[2020-10-10] MEDS ORDERED: ALBUMIN 25% 25GM 100ML 0.25 GM/ML BTL IV SCH (22:00)
[2020-10-11] VITALS (25 sets, daily range): BP systolic 106–159; BP diastolic 55–67
[2020-10-11] MEDS: ALBUMIN 25% 25GM 100ML 100 ML IV SCH ×2 (01:22→09:35)
[2020-10-11] MEDS: METOCLOPRAMIDE HCL 10 MG/2ML VIAL IV SCH ×4 (04:06→18:38)
[2020-10-11] MEDS: MEROPENEM 1GRAM 1 GM in SODIUM CHLORIDE 0.9% 100 ML 100 ML IV SCH ×3 (04:20→21:47)
[2020-10-11 04:42] LABS: BASOPHILS # (AUTO) 0.1 (0.0-0.1); BASOPHILS % 0.8 % (0.0-1.0); EOSINOPHILS # (AUTO) 0.1 (0.0-0.4); HEMATOCRIT 25.2 % (34.2-44.1); HEMOGLOBIN 7.4 g/dL (12.0-16.0); LYMPHOCYTES # (AUTO) 1.3 (1.0-3.2); LYMPHOCYTES % 12.8 % (18.0-39.1); MEAN CORPUSCULAR HEMOGLOBIN 27.8 pg (28-32); MEAN CORPUSCULAR HGB CONC 29.4 g/dL (31-35); MEAN CORPUSCULAR VOLUME 94.7 fL (81-99); MONOCYTES # (AUTO) 0.9 (0.2-0.8); MONOCYTES % 8.9 % (4.4-11.3); NEUTROPHILS # (AUTO) 7.3 (2.1-6.9); NEUTROPHILS % 74.7 % (38.7-80.0); PLATELET COUNT 324 x10e3/uL (140-360); RED BLOOD COUNT 2.66 x10e6/uL (3.6-5.1); RED CELL DISTRIBUTION WIDTH 19.3 % (11.7-14.4)
[2020-10-11 04:57] LABS: ALANINE AMINOTRANSFERASE 15 IU/L (0-55); ALBUMIN 3.4 g/dL (3.5-5.0); ALKALINE PHOSPHATASE 137 IU/L (40-150); ANION GAP 10.9 mmol/L (8-16); BLOOD UREA NITROGEN 25 mg/dL (7-26); BUN/CREATININE RATIO 57 (6-25); CALCIUM 8.3 mg/dL (8.4-10.2); CARBON DIOXIDE 38 mmol/L (22-29); CHLORIDE 92 mmol/L (98-107); CREATININE, SERUM 0.44 mg/dL (0.57-1.11); EST GLOMERULAR FILTRATION RATE > 60 ML/MIN (60-); GLUCOSE 105 mg/dL (74-118); SODIUM 138 mmol/L (136-145)
[2020-10-11 05:00] LABS: POTASSIUM 2.9 mmol/L (3.5-5.1)
[2020-10-11] MEDS: MIDAZOLAM HCL 50 MG in SODIUM CHLORIDE 0.9% 100 ML 90 ML IV PRN ×2 (07:36→14:03)
[2020-10-11] MEDS: DOCUSATE SODIUM LIQD 100 MG/10 ML UDC NG SCH (09:00)
[2020-10-11] MEDS: ACETAZOLAMIDE 500 MG CAP PO SCH (09:00)
[2020-10-11 09:19] LABS: ABG HCO3 39 mmol/L (22-26); ABG PCO2 63 mmHg (35-45); ABG PO2 101 mmHg (80-105); ABG TCO2 41
[2020-10-11] MEDS: FUROSEMIDE INJ 100 MG in SODIUM CHLORIDE 0.9% 100 ML 90 ML IV SCH ×2 (09:31→21:30)
[2020-10-11] MEDS: BALSAM PERU/CASTOR OIL 60 GM OINT...G. TP SCH (09:44)
[2020-10-11] MEDS ORDERED: POTASSIUM CHLORIDE 40 MEQ in SODIUM CHLORIDE 0.9% 250ML 250 ML IV ONE (10:15)
[2020-10-11] MEDS: FENTANYL CITRATE INJ 2,000 MCG in SODIUM CHLORIDE 0.9% 250ML 210 ML IV SCH ×3 (10:35→23:00)
[2020-10-11 11:41] LABS: INR 1.19; PARTIAL THROMBOPLASTIN TIME 34.4 seconds (23.8-35.5); PROTHROMBIN TIME 15.9 seconds (11.9-14.5)
[2020-10-11] MEDS ORDERED: FENTANYL CITRATE/PF 100MCG/2 ML INJ ONE (12:05)
[2020-10-11] MEDS ORDERED: MIDAZOLAM HCL 2 MG/2 ML VIAL ONE (12:05)
[2020-10-11] MEDS ORDERED: ROCURONIUM BROMIDE 10 MG/ML 5ML VIAL IV ONE (13:02)
[2020-10-11 13:38] LABS: HYPOCHROMASIA MODERATE
[2020-10-11 13:39] LABS: ANISOCYTOSIS SLIGHT; PLATELET ESTIMATE ADEQUATE; PLATELET MORPHOLOGY COMMENT NORMAL; POIKILOCYTOSIS SLIGHT; POLYCHROMASIA FEW; RBC MORPHOLOGY COMMENT ABNORMAL
[2020-10-11 13:40] LABS: STOMATOCYTES SLIGHT
[2020-10-11] MEDS ORDERED: ACETAMINOPHEN 650 MG SUPP PR PRN (14:00)
[2020-10-11] MEDS ORDERED: HEPARIN SOD/SOD CHLORIDE 1,000 ML ONE (15:42)
[2020-10-11] MEDS: ROCURONIUM BROMIDE 1,250 MG in SODIUM CHLORIDE 0.9% 250ML 125 ML IV SCH (16:15)
[2020-10-11] MEDS: INSULIN REGULAR, HUMAN 3ML VL 100 UNIT in SODIUM CHLORIDE 0.9% 100 ML 99 ML IV SCH ×2 (18:39)
[2020-10-12] VITALS (17 sets, daily range): BP systolic 96–152; BP diastolic 49–92
[2020-10-12] MEDS: FENTANYL CITRATE INJ 2,000 MCG in SODIUM CHLORIDE 0.9% 250ML 210 ML IV SCH ×2 (04:00→15:31)
[2020-10-12 05:21] LABS: BASOPHILS # (AUTO) 0.1 (0.0-0.1); BASOPHILS % 0.6 % (0.0-1.0); HEMOGLOBIN 7.3 g/dL (12.0-16.0); LYMPHOCYTES % 9.1 % (18.0-39.1); MEAN CORPUSCULAR HEMOGLOBIN 26.7 pg (28-32); MEAN CORPUSCULAR HGB CONC 28.1 g/dL (31-35); MEAN CORPUSCULAR VOLUME 95.2 fL (81-99); MONOCYTES # (AUTO) 0.7 (0.2-0.8); MONOCYTES % 6.3 % (4.4-11.3); NEUTROPHILS # (AUTO) 9.4 (2.1-6.9); NEUTROPHILS % 82.3 % (38.7-80.0); PLATELET COUNT 346 x10e3/uL (140-360); RED BLOOD COUNT 2.73 x10e6/uL (3.6-5.1); RED CELL DISTRIBUTION WIDTH 19.5 % (11.7-14.4)
[2020-10-12 05:39] LABS: ALANINE AMINOTRANSFERASE 20 IU/L (0-55); ALBUMIN 3.4 g/dL (3.5-5.0); ALKALINE PHOSPHATASE 129 IU/L (40-150); ANION GAP 16.6 mmol/L (8-16); BLOOD UREA NITROGEN 27 mg/dL (7-26); BUN/CREATININE RATIO 47 (6-25); CALCIUM 8.2 mg/dL (8.4-10.2); CARBON DIOXIDE 36 mmol/L (22-29); CHLORIDE 91 mmol/L (98-107); CREATININE, SERUM 0.58 mg/dL (0.57-1.11); EST GLOMERULAR FILTRATION RATE > 60 ML/MIN (60-); GLUCOSE 136 mg/dL (74-118); SODIUM 141 mmol/L (136-145)
[2020-10-12 05:41] LABS: POTASSIUM 2.6 mmol/L (3.5-5.1)
[2020-10-12] MEDS: METOCLOPRAMIDE HCL 10 MG/2ML VIAL IV SCH ×5 (06:08→23:35)
[2020-10-12] MEDS: MEROPENEM 1GRAM 1 GM in SODIUM CHLORIDE 0.9% 100 ML 100 ML IV SCH ×3 (06:08→21:27)
[2020-10-12] MEDS: POTASSIUM CHLORIDE 20MEQ/100ML 200 ML IV PRN (07:40)
[2020-10-12] MEDS: MIDAZOLAM HCL 50 MG in SODIUM CHLORIDE 0.9% 100 ML 90 ML IV PRN (07:49)
[2020-10-12 08:42] LABS: ABG HCO3 18 mmol/L (22-26); ABG PCO2 62 mmHg (35-45); ABG PH 7.43 (7.35-7.45); ABG PO2 99 mmHg (80-105); ABG TCO2 44
[2020-10-12] MEDS: FUROSEMIDE INJ 100 MG in SODIUM CHLORIDE 0.9% 100 ML 90 ML IV SCH ×3 (09:08→21:27)
[2020-10-12] MEDS: BALSAM PERU/CASTOR OIL 60 GM OINT...G. TP SCH (11:08)
[2020-10-12] MEDS ORDERED: POTASSIUM CHLORIDE 20 MEQ/100 ML IV ONE (13:45)
[2020-10-12] MEDS ORDERED: POTASSIUM CHLORIDE 10MEQ/100ML 400 ML IV ONE (14:30)
[2020-10-12] MEDS: DOCUSATE SODIUM LIQD 100 MG/10 ML UDC NG SCH (15:30)
[2020-10-12] MEDS: FONDAPARINUX SODIUM 7.5 MG/0.6 ML SYR SQ SCH (15:30)
[2020-10-12] MEDS: ACETAMINOPHEN 325 MG/10 ML UDC NG PRN (17:07)
[2020-10-13] VITALS (16 sets, daily range): BP systolic 116–158; BP diastolic 38–67
[2020-10-13] MEDS: MIDAZOLAM HCL 50 MG in SODIUM CHLORIDE 0.9% 100 ML 90 ML IV PRN ×2
[2020-10-13 05:46] LABS: BASOPHILS # (AUTO) 0.1 (0.0-0.1); BASOPHILS % 0.4 % (0.0-1.0); HEMATOCRIT 26.7 % (34.2-44.1); HEMOGLOBIN 7.5 g/dL (12.0-16.0); LYMPHOCYTES # (AUTO) 0.6 (1.0-3.2); MEAN CORPUSCULAR HEMOGLOBIN 26.8 pg (28-32); MEAN CORPUSCULAR HGB CONC 28.1 g/dL (31-35); MEAN CORPUSCULAR VOLUME 95.4 fL (81-99); MONOCYTES # (AUTO) 0.7 (0.2-0.8); MONOCYTES % 5.6 % (4.4-11.3); NEUTROPHILS # (AUTO) 10.5 (2.1-6.9); NEUTROPHILS % 87.9 % (38.7-80.0); PLATELET COUNT 350 x10e3/uL (140-360); RED CELL DISTRIBUTION WIDTH 19.7 % (11.7-14.4)
[2020-10-13] MEDS ORDERED: POTASSIUM CHLORIDE 10MEQ/100ML 200 ML IV ONE (06:00)
[2020-10-13] MEDS: MEROPENEM 1GRAM 1 GM in SODIUM CHLORIDE 0.9% 100 ML 100 ML IV SCH (06:00)
[2020-10-13] MEDS: METOCLOPRAMIDE HCL 10 MG/2ML VIAL IV SCH ×3 (06:00→17:01)
[2020-10-13 06:07] LABS: ALANINE AMINOTRANSFERASE 20 IU/L (0-55); ALBUMIN 3.1 g/dL (3.5-5.0); ALBUMIN/GLOBULIN RATIO 0.8 (0.8-2.0); ALKALINE PHOSPHATASE 115 IU/L (40-150); ANION GAP 22.5 mmol/L (8-16); BLOOD UREA NITROGEN 19 mg/dL (7-26); BUN/CREATININE RATIO 30 (6-25); CALCIUM 8.1 mg/dL (8.4-10.2); CARBON DIOXIDE 39 mmol/L (22-29); CHLORIDE 84 mmol/L (98-107); CREATININE, SERUM 0.64 mg/dL (0.57-1.11); EST GLOMERULAR FILTRATION RATE > 60 ML/MIN (60-); GLUCOSE 307 mg/dL (74-118); SODIUM 143 mmol/L (136-145)
[2020-10-13 06:09] LABS: POTASSIUM 2.5 mmol/L (3.5-5.1)
[2020-10-13] MEDS: POTASSIUM CHLORIDE 20MEQ/100ML 200 ML IV PRN (06:36)
[2020-10-13 08:40] LABS: ABG HCO3 48 mmol/L (22-26); ABG PCO2 61 mmHg (35-45); ABG PO2 81 mmHg (80-105); ABG TCO2 50
[2020-10-13] MEDS: DOCUSATE SODIUM LIQD 100 MG/10 ML UDC NG SCH (10:52)
[2020-10-13] MEDS: BALSAM PERU/CASTOR OIL 60 GM OINT...G. TP SCH (10:52)
[2020-10-13] MEDS: FONDAPARINUX SODIUM 7.5 MG/0.6 ML SYR SQ SCH (10:53)
[2020-10-13] MEDS ORDERED: NOREPINEPHRINE INJ 4MG/4ML 8 MG in DEXTROSE 5% 250ML 250 ML IV SCH (11:00)
[2020-10-13] MEDS ORDERED: POTASSIUM CHLORIDE 10MEQ/100ML 400 ML IV ONE (11:15)
[2020-10-13] MEDS: FENTANYL CITRATE INJ 2,000 MCG in SODIUM CHLORIDE 0.9% 250ML 210 ML IV SCH (11:44)
[2020-10-13] MEDS: KCL 20 MEQ PACKET/ ORAL SOLN NG SCH ×2 (14:00→17:00)
[2020-10-13] MEDS: FUROSEMIDE INJ 100 MG in SODIUM CHLORIDE 0.9% 100 ML 90 ML IV SCH (15:40)
[2020-10-13] MEDS ORDERED: POTASSIUM CHLORIDE 20MEQ/15ML UDC NG ONE (21:30)
[2020-10-13] MEDS ORDERED: POTASSIUM CHLORIDE 20MEQ/100ML 100 ML IV ONE (21:30)
[2020-10-13] MEDS ORDERED: KCL 20 MEQ PACKET/ ORAL SOLN ONE (22:07)
[2020-10-14] VITALS (18 sets, daily range): BP systolic 134–156; BP diastolic 58–67
[2020-10-14] MEDS: METOCLOPRAMIDE HCL 10 MG/2ML VIAL IV SCH ×4 (00:37→17:56)
[2020-10-14] MEDS: FUROSEMIDE INJ 100 MG in SODIUM CHLORIDE 0.9% 100 ML 90 ML IV SCH (03:47)
[2020-10-14 06:02] LABS: BASOPHILS % 0.3 % (0.0-1.0); EOSINOPHILS % 0.2 % (0.0-6.0); HEMATOCRIT 28.3 % (34.2-44.1); HEMOGLOBIN 8.1 g/dL (12.0-16.0); MEAN CORPUSCULAR HGB CONC 28.6 g/dL (31-35); MEAN CORPUSCULAR VOLUME 94.3 fL (81-99); MONOCYTES # (AUTO) 0.9 (0.2-0.8); MONOCYTES % 7.6 % (4.4-11.3); NEUTROPHILS # (AUTO) 10.3 (2.1-6.9); NEUTROPHILS % 83.2 % (38.7-80.0); PLATELET COUNT 315 x10e3/uL (140-360)
[2020-10-14 06:25] LABS: ALANINE AMINOTRANSFERASE 18 IU/L (0-55); ALBUMIN 3.3 g/dL (3.5-5.0); ALBUMIN/GLOBULIN RATIO 0.8 (0.8-2.0); ALKALINE PHOSPHATASE 115 IU/L (40-150); BLOOD UREA NITROGEN 13 mg/dL (7-26); BUN/CREATININE RATIO 21 (6-25); CALCIUM 8.5 mg/dL (8.4-10.2); CHLORIDE 74 mmol/L (98-107); CREATININE, SERUM 0.61 mg/dL (0.57-1.11); EST GLOMERULAR FILTRATION RATE > 60 ML/MIN (60-); GLUCOSE 228 mg/dL (74-118); SODIUM 141 mmol/L (136-145)
[2020-10-14 06:49] LABS: ANION GAP 14.9 mmol/L (8-16)
[2020-10-14 06:56] LABS: CARBON DIOXIDE 55 mmol/L (22-29); POTASSIUM 2.9 mmol/L (3.5-5.1)
[2020-10-14 08:27] LABS: ABG HCO3 67 mmol/L (22-26); ABG PCO2 75 mmHg (35-45); ABG PH 7.56 (7.35-7.45); ABG PO2 74 mmHg (80-105); ABG TCO2 50
[2020-10-14] MEDS: FONDAPARINUX SODIUM 7.5 MG/0.6 ML SYR SQ SCH (08:30)
[2020-10-14] MEDS: BALSAM PERU/CASTOR OIL 60 GM OINT...G. TP SCH (08:30)
[2020-10-14] MEDS: DOCUSATE SODIUM LIQD 100 MG/10 ML UDC NG SCH (08:30)
[2020-10-14] MEDS: POTASSIUM CHLORIDE 20MEQ/100ML 200 ML IV PRN (09:16)
[2020-10-14] MEDS ORDERED: ACETAZOLAMIDE 500 MG CAP PO SCH (10:30)
[2020-10-14] MEDS: PROPOFOL IV EMULSION 10MG/ML 100 ML IV SCH (12:04)
[2020-10-14] MEDS: ACETAZOLAMIDE 250 MG TAB PO SCH ×2 (12:28→21:20)
[2020-10-14] MEDS ORDERED: POTASSIUM CHLORIDE 20MEQ/15ML UDC NG ONE (12:45)
[2020-10-14] MEDS ORDERED: PROPOFOL IV EMULSION 10MG/ML 100ML BTL ONE (13:16)
[2020-10-14] MEDS ORDERED: KCL 20 MEQ PACKET/ ORAL SOLN NG ONE (13:30)
[2020-10-14] MEDS ORDERED: POTASSIUM CHLORIDE 20MEQ/100ML 100 ML IV ONE (17:00)
[2020-10-15] VITALS (25 sets, daily range): BP systolic 101–180; BP diastolic 46–85
[2020-10-15] MEDS: METOCLOPRAMIDE HCL 10 MG/2ML VIAL IV SCH ×3 (00:12→13:06)
[2020-10-15] MEDS: INSULIN REGULAR, HUMAN 3ML VL 100 UNIT in SODIUM CHLORIDE 0.9% 100 ML 99 ML IV SCH ×2 (04:04)
[2020-10-15 04:44] LABS: BASOPHILS # (AUTO) 0.1 (0.0-0.1); BASOPHILS % 0.4 % (0.0-1.0); EOSINOPHILS # (AUTO) 0.3 (0.0-0.4); EOSINOPHILS % 2.5 % (0.0-6.0); HEMATOCRIT 27.7 % (34.2-44.1); HEMOGLOBIN 8.1 g/dL (12.0-16.0); LYMPHOCYTES # (AUTO) 0.5 (1.0-3.2); LYMPHOCYTES % 4.4 % (18.0-39.1); MEAN CORPUSCULAR HEMOGLOBIN 26.6 pg (28-32); MEAN CORPUSCULAR HGB CONC 29.2 g/dL (31-35); MEAN CORPUSCULAR VOLUME 90.8 fL (81-99); MONOCYTES # (AUTO) 0.6 (0.2-0.8); MONOCYTES % 5.2 % (4.4-11.3); NEUTROPHILS # (AUTO) 9.9 (2.1-6.9); NEUTROPHILS % 87.1 % (38.7-80.0); PLATELET COUNT 251 x10e3/uL (140-360); RED BLOOD COUNT 3.05 x10e6/uL (3.6-5.1); RED CELL DISTRIBUTION WIDTH 18.6 % (11.7-14.4)
[2020-10-15 05:07] LABS: ALANINE AMINOTRANSFERASE 16 IU/L (0-55); ALBUMIN 3.2 g/dL (3.5-5.0); ALBUMIN/GLOBULIN RATIO 0.8 (0.8-2.0); ALKALINE PHOSPHATASE 100 IU/L (40-150); BLOOD UREA NITROGEN 13 mg/dL (7-26); BUN/CREATININE RATIO 32 (6-25); CALCIUM 9.1 mg/dL (8.4-10.2); CHLORIDE 85 mmol/L (98-107); CREATININE, SERUM 0.41 mg/dL (0.57-1.11); EST GLOMERULAR FILTRATION RATE > 60 ML/MIN (60-); GLUCOSE 148 mg/dL (74-118); SODIUM 137 mmol/L (136-145)
[2020-10-15 05:13] LABS: CARBON DIOXIDE 45 mmol/L (22-29)
[2020-10-15] MEDS: DOCUSATE SODIUM LIQD 100 MG/10 ML UDC NG SCH (08:38)
[2020-10-15] MEDS: ACETAZOLAMIDE 250 MG TAB PO SCH (08:41)
[2020-10-15] MEDS: BALSAM PERU/CASTOR OIL 60 GM OINT...G. TP SCH (08:42)
[2020-10-15] MEDS: FONDAPARINUX SODIUM 7.5 MG/0.6 ML SYR SQ SCH (08:42)
[2020-10-15 08:45] LABS: ABG PH 7.45 (7.35-7.45)
[2020-10-15 08:46] LABS: ABG HCO3 45 mmol/L (22-26); ABG PCO2 66 mmHg (35-45); ABG PO2 132 mmHg (80-105); ABG TCO2 47
[2020-10-15] MEDS ORDERED: POTASSIUM CHLORIDE 20MEQ/100ML 200 ML IV ONE (12:45)
[2020-10-15] MEDS ORDERED: LACTATED RINGER'S 1,000 ML INJ ONE (13:15)
[2020-10-15] MEDS: PROPOFOL IV EMULSION 10MG/ML 100 ML IV SCH (14:08)
[2020-10-15 15:21] LABS: ABG HCO3 39 mmol/L (22-26); ABG PCO2 67 mmHg (35-45); ABG PH 7.38 (7.35-7.45); ABG PO2 88 mmHg (80-105); ABG TCO2 41
[2020-10-15] MEDS ORDERED: INSULIN REGULAR, HUMAN 3ML VL 100 UNIT in SODIUM CHLORIDE 0.9% 100 ML IV SCH ×2 (17:15)
[2020-10-15] MEDS ORDERED: DEXTROSE 50% SYRINGE 50 ML IV PRN (17:15)
[2020-10-15 20:42] LABS: ANION GAP 12.4 mmol/L (8-16); BLOOD UREA NITROGEN 14 mg/dL (7-26); BUN/CREATININE RATIO 29 (6-25); CALCIUM 8.9 mg/dL (8.4-10.2); CARBON DIOXIDE 35 mmol/L (22-29); CHLORIDE 94 mmol/L (98-107); CREATININE, SERUM 0.48 mg/dL (0.57-1.11); EST GLOMERULAR FILTRATION RATE > 60 ML/MIN (60-); GLUCOSE 194 mg/dL (74-118); POTASSIUM 3.4 mmol/L (3.5-5.1); SODIUM 138 mmol/L (136-145)
[2020-10-16] VITALS (25 sets, daily range): BP systolic 118–180; BP diastolic 55–91
[2020-10-16] MEDS: METOCLOPRAMIDE HCL 10 MG/2ML VIAL IV SCH ×4 (00:15→18:19)
[2020-10-16 05:30] LABS: ALANINE AMINOTRANSFERASE 12 IU/L (0-55); ALBUMIN 3.2 g/dL (3.5-5.0); ALBUMIN/GLOBULIN RATIO 0.7 (0.8-2.0); ALKALINE PHOSPHATASE 102 IU/L (40-150); ANION GAP 10.5 mmol/L (8-16); BLOOD UREA NITROGEN 15 mg/dL (7-26); BUN/CREATININE RATIO 32 (6-25); CALCIUM 9.3 mg/dL (8.4-10.2); CARBON DIOXIDE 36 mmol/L (22-29); CHLORIDE 96 mmol/L (98-107); CREATININE, SERUM 0.47 mg/dL (0.57-1.11); EST GLOMERULAR FILTRATION RATE > 60 ML/MIN (60-); GLUCOSE 180 mg/dL (74-118); POTASSIUM 3.5 mmol/L (3.5-5.1); SODIUM 139 mmol/L (136-145)
[2020-10-16] MEDS ORDERED: POTASSIUM CHLORIDE 20MEQ/100ML 200 ML IV ONE (08:00)
[2020-10-16] MEDS: DOCUSATE SODIUM LIQD 100 MG/10 ML UDC NG SCH (08:17)
[2020-10-16] MEDS: FONDAPARINUX SODIUM 7.5 MG/0.6 ML SYR SQ SCH (08:17)
[2020-10-16] MEDS: BALSAM PERU/CASTOR OIL 60 GM OINT...G. TP SCH (09:46)
[2020-10-16] MEDS: ACETAMINOPHEN 325 MG/10 ML UDC NG PRN (09:55)
[2020-10-16 11:00] LABS: ABG PCO2 67 mmHg (35-45); ABG PH 7.31 (7.35-7.45); ABG PO2 89 mmHg (80-105)
[2020-10-16 11:01] LABS: ABG HCO3 33 mmol/L (22-26); ABG OXYGEN SATURATION 95.8 % (95-98); ABG TCO2 35.5
[2020-10-16] MEDS: PROPOFOL IV EMULSION 10MG/ML 100 ML IV SCH (11:09)
[2020-10-16 16:36] LABS: ABG HCO3 37 mmol/L (22-26); ABG PCO2 68 mmHg (35-45); ABG PH 7.35 (7.35-7.45); ABG PO2 69 mmHg (80-105); ABG TCO2 39
[2020-10-17] VITALS (24 sets, daily range): BP systolic 139–177; BP diastolic 55–98
[2020-10-17] MEDS: METOCLOPRAMIDE HCL 10 MG/2ML VIAL IV SCH ×4 (00:54→18:05)
[2020-10-17 04:56] LABS: BASOPHILS % 0.2 % (0.0-1.0); EOSINOPHILS % 0.2 % (0.0-6.0); HEMATOCRIT 29.9 % (34.2-44.1); HEMOGLOBIN 8.5 g/dL (12.0-16.0); LYMPHOCYTES # (AUTO) 0.6 (1.0-3.2); LYMPHOCYTES % 5.9 % (18.0-39.1); MEAN CORPUSCULAR HEMOGLOBIN 26.8 pg (28-32); MEAN CORPUSCULAR HGB CONC 28.4 g/dL (31-35); MEAN CORPUSCULAR VOLUME 94.3 fL (81-99); MONOCYTES # (AUTO) 0.4 (0.2-0.8); NEUTROPHILS # (AUTO) 9.3 (2.1-6.9); NEUTROPHILS % 88.8 % (38.7-80.0); PLATELET COUNT 226 x10e3/uL (140-360); RED BLOOD COUNT 3.17 x10e6/uL (3.6-5.1); RED CELL DISTRIBUTION WIDTH 18.8 % (11.7-14.4)
[2020-10-17] MEDS ORDERED: DEXTROSE 50% SYRINGE 50 ML IV PRN (05:00)
[2020-10-17 05:11] LABS: ALANINE AMINOTRANSFERASE 12 IU/L (0-55); ALBUMIN 3.1 g/dL (3.5-5.0); ALBUMIN/GLOBULIN RATIO 0.7 (0.8-2.0); ALKALINE PHOSPHATASE 91 IU/L (40-150); ANION GAP 13.6 mmol/L (8-16); BLOOD UREA NITROGEN 22 mg/dL (7-26); BUN/CREATININE RATIO 47 (6-25); CALCIUM 9.2 mg/dL (8.4-10.2); CARBON DIOXIDE 33 mmol/L (22-29); CHLORIDE 97 mmol/L (98-107); CREATININE, SERUM 0.47 mg/dL (0.57-1.11); EST GLOMERULAR FILTRATION RATE > 60 ML/MIN (60-); GLUCOSE 285 mg/dL (74-118); POTASSIUM 3.6 mmol/L (3.5-5.1); SODIUM 140 mmol/L (136-145)
[2020-10-17] MEDS: INSULIN REGULAR, HUMAN 100 UNIT/1 ML 3ML VIAL SQ SCH ×3 (06:43→18:06)
[2020-10-17 07:12] LABS: LYMPHOCYTES % (MANUAL) 2 % (19-48); MONOCYTES % (MANUAL) 3 % (3.4-9.0); NEUTROPHILS % (MANUAL) 95 % (40-74)
[2020-10-17 07:13] LABS: ANISOCYTOSIS MODERATE; HYPOCHROMASIA SLIGHT
[2020-10-17 07:14] LABS: POLYCHROMASIA FEW
[2020-10-17 07:15] LABS: PLATELET ESTIMATE ADEQUATE; PLATELET MORPHOLOGY COMMENT NORMAL; RBC MORPHOLOGY COMMENT ABNORMAL; SCHISTOCYTES A; STOMATOCYTES SLIGHT
[2020-10-17 08:18] LABS: ABG HCO3 39 mmol/L (22-26); ABG PCO2 60 mmHg (35-45); ABG PH 7.42 (7.35-7.45); ABG PO2 61 mmHg (80-105); ABG TCO2 41
[2020-10-17] MEDS: FONDAPARINUX SODIUM 7.5 MG/0.6 ML SYR SQ SCH (08:43)
[2020-10-17] MEDS: DOCUSATE SODIUM LIQD 100 MG/10 ML UDC NG SCH (08:43)
[2020-10-17] MEDS: BALSAM PERU/CASTOR OIL 60 GM OINT...G. TP SCH (08:43)
[2020-10-17] MEDS: INSULIN GLARGINE 100 UNITS/ML VIAL SQ SCH ×2 (08:44→21:05)
[2020-10-17] MEDS: PROPOFOL IV EMULSION 10MG/ML 100 ML IV SCH (10:45)
[2020-10-17] MEDS ORDERED: PROPOFOL IV EMULSION 10MG/ML 100ML BTL ONE (13:19)
[2020-10-17] MEDS ORDERED: PROPOFOL IV EMULSION 10 MG/ML 50 ML VIAL IV ONE (13:19)
[2020-10-18] VITALS (25 sets, daily range): BP systolic 121–196; BP diastolic 47–85
[2020-10-18] MEDS: INSULIN REGULAR, HUMAN 100 UNIT/1 ML 3ML VIAL SQ SCH ×4 (00:05→17:36)
[2020-10-18] MEDS: METOCLOPRAMIDE HCL 10 MG/2ML VIAL IV SCH ×4 (00:09→17:36)
[2020-10-18 04:30] LABS: BASOPHILS % 0.2 % (0.0-1.0); EOSINOPHILS % 0.2 % (0.0-6.0); HEMATOCRIT 28.4 % (34.2-44.1); HEMOGLOBIN 8.1 g/dL (12.0-16.0); LYMPHOCYTES # (AUTO) 0.9 (1.0-3.2); LYMPHOCYTES % 7.3 % (18.0-39.1); MEAN CORPUSCULAR HEMOGLOBIN 27.1 pg (28-32); MEAN CORPUSCULAR HGB CONC 28.5 g/dL (31-35); MONOCYTES # (AUTO) 0.8 (0.2-0.8); MONOCYTES % 6.1 % (4.4-11.3); NEUTROPHILS # (AUTO) 10.5 (2.1-6.9); NEUTROPHILS % 85.7 % (38.7-80.0); PLATELET COUNT 254 x10e3/uL (140-360); RED BLOOD COUNT 2.99 x10e6/uL (3.6-5.1); RED CELL DISTRIBUTION WIDTH 19.2 % (11.7-14.4)
[2020-10-18 04:54] LABS: ALANINE AMINOTRANSFERASE 14 IU/L (0-55); ALBUMIN/GLOBULIN RATIO 0.7 (0.8-2.0); ALKALINE PHOSPHATASE 90 IU/L (40-150); ANION GAP 9.1 mmol/L (8-16); BLOOD UREA NITROGEN 24 mg/dL (7-26); BUN/CREATININE RATIO 60 (6-25); CALCIUM 9.6 mg/dL (8.4-10.2); CHLORIDE 98 mmol/L (98-107); EST GLOMERULAR FILTRATION RATE > 60 ML/MIN (60-); GLUCOSE 117 mg/dL (74-118); POTASSIUM 3.1 mmol/L (3.5-5.1); SODIUM 145 mmol/L (136-145)
[2020-10-18 04:55] LABS: CARBON DIOXIDE 41 mmol/L (22-29)
[2020-10-18] MEDS ORDERED: POTASSIUM CHLORIDE 20MEQ/100ML 200 ML ONE (06:44)
[2020-10-18] MEDS: POTASSIUM CHLORIDE 20MEQ/100ML 200 ML IV PRN (06:51)
[2020-10-18] MEDS: FONDAPARINUX SODIUM 7.5 MG/0.6 ML SYR SQ SCH (07:53)
[2020-10-18] MEDS: DOCUSATE SODIUM LIQD 100 MG/10 ML UDC NG SCH (07:53)
[2020-10-18] MEDS: BALSAM PERU/CASTOR OIL 60 GM OINT...G. TP SCH (07:54)
[2020-10-18] MEDS: PROPOFOL IV EMULSION 10MG/ML 100 ML IV SCH (07:54)
[2020-10-18] MEDS: INSULIN GLARGINE 100 UNITS/ML VIAL SQ SCH ×2 (08:18→22:24)
[2020-10-18 08:20] LABS: ANISOCYTOSIS MODERATE; HYPOCHROMASIA SLIGHT; RBC MORPHOLOGY COMMENT ABNORMAL
[2020-10-18 08:21] LABS: POLYCHROMASIA FEW
[2020-10-18 08:22] LABS: PLATELET ESTIMATE ADEQUATE; PLATELET MORPHOLOGY COMMENT NORMAL
[2020-10-18 09:09] LABS: ABG HCO3 41 mmol/L (22-26); ABG PCO2 64 mmHg (35-45); ABG PH 7.41 (7.35-7.45); ABG PO2 102 mmHg (80-105); ABG TCO2 43
[2020-10-18] MEDS ORDERED: SODIUM CHLORIDE 0.45% 1,000 ML IV ONE (10:15)
[2020-10-18 11:47] LABS: ABG HCO3 40 mmol/L (22-26); ABG PCO2 75 mmHg (35-45); ABG PH 7.34 (7.35-7.45); ABG PO2 59 mmHg (80-105); ABG TCO2 42
[2020-10-18] MEDS: ACETAMINOPHEN 325 MG/10 ML UDC NG PRN (17:48)
[2020-10-19] VITALS (23 sets, daily range): BP systolic 96–186; BP diastolic 62–123
[2020-10-19] MEDS: METOCLOPRAMIDE HCL 10 MG/2ML VIAL IV SCH ×4 (00:58→17:32)
[2020-10-19] MEDS ORDERED: METOPROLOL TARTRATE INJ 1 MG/ML VIAL IV PRN (01:00)
[2020-10-19] MEDS ORDERED: POTASSIUM CHLORIDE 20MEQ/15ML UDC NG ONE (01:00)
[2020-10-19] MEDS: INSULIN REGULAR, HUMAN 100 UNIT/1 ML 3ML VIAL SQ SCH ×4 (01:01→17:32)
[2020-10-19] MEDS ORDERED: KCL 20 MEQ PACKET/ ORAL SOLN ONE (02:27)
[2020-10-19 05:59] LABS: BASOPHILS % 0.3 % (0.0-1.0); EOSINOPHILS # (AUTO) 0.2 (0.0-0.4); EOSINOPHILS % 1.5 % (0.0-6.0); HEMATOCRIT 28.3 % (34.2-44.1); HEMOGLOBIN 8.1 g/dL (12.0-16.0); LYMPHOCYTES # (AUTO) 0.8 (1.0-3.2); LYMPHOCYTES % 7.8 % (18.0-39.1); MEAN CORPUSCULAR HEMOGLOBIN 26.9 pg (28-32); MEAN CORPUSCULAR HGB CONC 28.6 g/dL (31-35); MONOCYTES # (AUTO) 0.8 (0.2-0.8); MONOCYTES % 7.1 % (4.4-11.3); NEUTROPHILS # (AUTO) 8.9 (2.1-6.9); NEUTROPHILS % 82.7 % (38.7-80.0); PLATELET COUNT 264 x10e3/uL (140-360); RED BLOOD COUNT 3.01 x10e6/uL (3.6-5.1); RED CELL DISTRIBUTION WIDTH 19.9 % (11.7-14.4)
[2020-10-19 06:18] LABS: ALANINE AMINOTRANSFERASE 22 IU/L (0-55); ALBUMIN/GLOBULIN RATIO 0.7 (0.8-2.0); ALKALINE PHOSPHATASE 107 IU/L (40-150); ANION GAP 11.5 mmol/L (8-16); BLOOD UREA NITROGEN 20 mg/dL (7-26); BUN/CREATININE RATIO 49 (6-25); CALCIUM 9.3 mg/dL (8.4-10.2); CARBON DIOXIDE 37 mmol/L (22-29); CHLORIDE 97 mmol/L (98-107); CREATININE, SERUM 0.41 mg/dL (0.57-1.11); EST GLOMERULAR FILTRATION RATE > 60 ML/MIN (60-); GLUCOSE 182 mg/dL (74-118); POTASSIUM 4.5 mmol/L (3.5-5.1); SODIUM 141 mmol/L (136-145)
[2020-10-19] MEDS: DOCUSATE SODIUM LIQD 100 MG/10 ML UDC NG SCH (08:21)
[2020-10-19] MEDS: FONDAPARINUX SODIUM 7.5 MG/0.6 ML SYR SQ SCH ×2 (08:21→10:19)
[2020-10-19] MEDS: BALSAM PERU/CASTOR OIL 60 GM OINT...G. TP SCH (08:22)
[2020-10-19] MEDS: INSULIN GLARGINE 100 UNITS/ML VIAL SQ SCH ×2 (08:22→21:00)
[2020-10-19 08:45] LABS: ABG HCO3 41 mmol/L (22-26); ABG PCO2 65 mmHg (35-45); ABG PH 7.41 (7.35-7.45); ABG PO2 75 mmHg (80-105); ABG TCO2 43
[2020-10-19] MEDS: ARTIFICIAL TEARS (OPTH) 15 ML BTL OU SCH ×2 (10:09→17:32)
[2020-10-20] VITALS (26 sets, daily range): BP systolic 94–188; BP diastolic 64–98
[2020-10-20] MEDS: METOCLOPRAMIDE HCL 10 MG/2ML VIAL IV SCH ×4 (00:52→17:41)
[2020-10-20 06:28] LABS: BASOPHILS # (AUTO) 0.1 (0.0-0.1); BASOPHILS % 0.7 % (0.0-1.0); EOSINOPHILS # (AUTO) 0.2 (0.0-0.4); EOSINOPHILS % 2.5 % (0.0-6.0); HEMATOCRIT 28.2 % (34.2-44.1); HEMOGLOBIN 8.1 g/dL (12.0-16.0); LYMPHOCYTES # (AUTO) 0.8 (1.0-3.2); LYMPHOCYTES % 10.7 % (18.0-39.1); MEAN CORPUSCULAR HEMOGLOBIN 26.1 pg (28-32); MEAN CORPUSCULAR HGB CONC 28.7 g/dL (31-35); MONOCYTES # (AUTO) 0.5 (0.2-0.8); MONOCYTES % 7.1 % (4.4-11.3); NEUTROPHILS # (AUTO) 5.9 (2.1-6.9); NEUTROPHILS % 78.3 % (38.7-80.0); PLATELET COUNT 301 x10e3/uL (140-360); RED CELL DISTRIBUTION WIDTH 19.7 % (11.7-14.4)
[2020-10-20] MEDS: ACETAMINOPHEN 325 MG/10 ML UDC NG PRN (06:40)
[2020-10-20] MEDS: ARTIFICIAL TEARS (OPTH) 15 ML BTL OU SCH ×2 (07:24→16:40)
[2020-10-20] MEDS: INSULIN REGULAR, HUMAN 100 UNIT/1 ML 3ML VIAL SQ SCH ×4 (07:24→17:42)
[2020-10-20 07:27] LABS: ALANINE AMINOTRANSFERASE 20 IU/L (0-55); ALBUMIN/GLOBULIN RATIO 0.7 (0.8-2.0); ALKALINE PHOSPHATASE 101 IU/L (40-150); ANION GAP 15.4 mmol/L (8-16); BLOOD UREA NITROGEN 17 mg/dL (7-26); BUN/CREATININE RATIO 41 (6-25); CALCIUM 8.9 mg/dL (8.4-10.2); CARBON DIOXIDE 34 mmol/L (22-29); CHLORIDE 94 mmol/L (98-107); CREATININE, SERUM 0.41 mg/dL (0.57-1.11); EST GLOMERULAR FILTRATION RATE > 60 ML/MIN (60-); GLUCOSE 153 mg/dL (74-118); POTASSIUM 4.4 mmol/L (3.5-5.1); SODIUM 139 mmol/L (136-145)
[2020-10-20] MEDS: FONDAPARINUX SODIUM 7.5 MG/0.6 ML SYR SQ SCH (08:51)
[2020-10-20] MEDS: INSULIN GLARGINE 100 UNITS/ML VIAL SQ SCH ×2 (08:54→22:46)
[2020-10-20] MEDS: BALSAM PERU/CASTOR OIL 60 GM OINT...G. TP SCH (08:54)
[2020-10-20] MEDS: ACETAZOLAMIDE 250 MG TAB PO SCH ×2 (11:18→22:47)
[2020-10-21] VITALS (26 sets, daily range): BP systolic 99–164; BP diastolic 43–72
[2020-10-21] MEDS: METOCLOPRAMIDE HCL 10 MG/2ML VIAL IV SCH ×4 (01:38→17:52)
[2020-10-21] MEDS: INSULIN REGULAR, HUMAN 100 UNIT/1 ML 3ML VIAL SQ SCH ×4 (01:44→17:52)
[2020-10-21 06:21] LABS: BASOPHILS % 0.3 % (0.0-1.0); EOSINOPHILS # (AUTO) 0.3 (0.0-0.4); EOSINOPHILS % 2.8 % (0.0-6.0); HEMOGLOBIN 8.4 g/dL (12.0-16.0); LYMPHOCYTES # (AUTO) 0.8 (1.0-3.2); LYMPHOCYTES % 8.4 % (18.0-39.1); MEAN CORPUSCULAR HEMOGLOBIN 26.5 pg (28-32); MEAN CORPUSCULAR VOLUME 91.5 fL (81-99); MONOCYTES # (AUTO) 0.7 (0.2-0.8); NEUTROPHILS # (AUTO) 7.7 (2.1-6.9); NEUTROPHILS % 81.1 % (38.7-80.0); PLATELET COUNT 322 x10e3/uL (140-360); RED BLOOD COUNT 3.17 x10e6/uL (3.6-5.1); RED CELL DISTRIBUTION WIDTH 19.1 % (11.7-14.4)
[2020-10-21 07:14] LABS: ALANINE AMINOTRANSFERASE 21 IU/L (0-55); ALBUMIN 2.9 g/dL (3.5-5.0); ALBUMIN/GLOBULIN RATIO 0.6 (0.8-2.0); ALKALINE PHOSPHATASE 107 IU/L (40-150); ANION GAP 12.2 mmol/L (8-16); BLOOD UREA NITROGEN 17 mg/dL (7-26); BUN/CREATININE RATIO 38 (6-25); CALCIUM 9.4 mg/dL (8.4-10.2); CARBON DIOXIDE 34 mmol/L (22-29); CHLORIDE 96 mmol/L (98-107); CREATININE, SERUM 0.45 mg/dL (0.57-1.11); EST GLOMERULAR FILTRATION RATE > 60 ML/MIN (60-); GLUCOSE 226 mg/dL (74-118); POTASSIUM 3.2 mmol/L (3.5-5.1); SODIUM 139 mmol/L (136-145)
[2020-10-21] MEDS: ARTIFICIAL TEARS (OPTH) 15 ML BTL OU SCH ×2 (08:05→17:52)
[2020-10-21] MEDS: BALSAM PERU/CASTOR OIL 60 GM OINT...G. TP SCH (08:06)
[2020-10-21] MEDS: ACETAZOLAMIDE 250 MG TAB PO SCH (08:06)
[2020-10-21] MEDS: FONDAPARINUX SODIUM 7.5 MG/0.6 ML SYR SQ SCH (08:06)
[2020-10-21] MEDS: POTASSIUM CHLORIDE 20MEQ/100ML 200 ML IV PRN (08:08)
[2020-10-21] MEDS: INSULIN GLARGINE 100 UNITS/ML VIAL SQ SCH ×2 (08:32→21:25)
[2020-10-21] MEDS: PROPOFOL IV EMULSION 10MG/ML 100 ML IV SCH (11:45)
[2020-10-21] MEDS: ACETAMINOPHEN 325 MG/10 ML UDC NG PRN (21:21)
[2020-10-22] VITALS (26 sets, daily range): BP systolic 108–169; BP diastolic 51–70
[2020-10-22] MEDS: INSULIN REGULAR, HUMAN 100 UNIT/1 ML 3ML VIAL SQ SCH ×4 (00:56→18:38)
[2020-10-22] MEDS: METOCLOPRAMIDE HCL 10 MG/2ML VIAL IV SCH ×4 (00:56→18:44)
[2020-10-22] MEDS: ACETAMINOPHEN 325 MG/10 ML UDC NG PRN ×2 (04:15→22:12)
[2020-10-22 06:24] LABS: BASOPHILS % 0.3 % (0.0-1.0); EOSINOPHILS # (AUTO) 0.2 (0.0-0.4); EOSINOPHILS % 2.3 % (0.0-6.0); HEMATOCRIT 29.2 % (34.2-44.1); HEMOGLOBIN 8.3 g/dL (12.0-16.0); LYMPHOCYTES # (AUTO) 0.7 (1.0-3.2); LYMPHOCYTES % 9.1 % (18.0-39.1); MEAN CORPUSCULAR HEMOGLOBIN 26.7 pg (28-32); MEAN CORPUSCULAR HGB CONC 28.4 g/dL (31-35); MEAN CORPUSCULAR VOLUME 93.9 fL (81-99); MONOCYTES # (AUTO) 0.5 (0.2-0.8); MONOCYTES % 5.9 % (4.4-11.3); NEUTROPHILS # (AUTO) 6.5 (2.1-6.9); NEUTROPHILS % 81.8 % (38.7-80.0); PLATELET COUNT 321 x10e3/uL (140-360); RED BLOOD COUNT 3.11 x10e6/uL (3.6-5.1); RED CELL DISTRIBUTION WIDTH 19.1 % (11.7-14.4)
[2020-10-22 06:55] LABS: ALANINE AMINOTRANSFERASE 19 IU/L (0-55); ALBUMIN 2.8 g/dL (3.5-5.0); ALBUMIN/GLOBULIN RATIO 0.6 (0.8-2.0); ALKALINE PHOSPHATASE 115 IU/L (40-150); ANION GAP 10.3 mmol/L (8-16); BLOOD UREA NITROGEN 21 mg/dL (7-26); BUN/CREATININE RATIO 44 (6-25); CALCIUM 9.3 mg/dL (8.4-10.2); CARBON DIOXIDE 35 mmol/L (22-29); CHLORIDE 99 mmol/L (98-107); CREATININE, SERUM 0.48 mg/dL (0.57-1.11); EST GLOMERULAR FILTRATION RATE > 60 ML/MIN (60-); GLUCOSE 329 mg/dL (74-118); POTASSIUM 4.3 mmol/L (3.5-5.1); SODIUM 140 mmol/L (136-145)
[2020-10-22] MEDS: INSULIN GLARGINE 100 UNITS/ML VIAL SQ SCH ×2 (08:22→22:13)
[2020-10-22] MEDS: ARTIFICIAL TEARS (OPTH) 15 ML BTL OU SCH ×2 (08:51→18:40)
[2020-10-22] MEDS: FONDAPARINUX SODIUM 7.5 MG/0.6 ML SYR SQ SCH (08:51)
[2020-10-22] MEDS: BALSAM PERU/CASTOR OIL 60 GM OINT...G. TP SCH (08:52)
[2020-10-22] MEDS: PROPOFOL IV EMULSION 10MG/ML 100 ML IV SCH (11:45)
[2020-10-23] VITALS (26 sets, daily range): BP systolic 100–186; BP diastolic 54–87
[2020-10-23] MEDS: METOCLOPRAMIDE HCL 10 MG/2ML VIAL IV SCH ×4 (00:34→17:00)
[2020-10-23] MEDS: INSULIN REGULAR, HUMAN 100 UNIT/1 ML 3ML VIAL SQ SCH ×5 (00:35→23:44)
[2020-10-23 06:03] LABS: BASOPHILS % 0.3 % (0.0-1.0); HEMATOCRIT 31.2 % (34.2-44.1); HEMOGLOBIN 8.8 g/dL (12.0-16.0); LYMPHOCYTES # (AUTO) 1.3 (1.0-3.2); LYMPHOCYTES % 12.5 % (18.0-39.1); MEAN CORPUSCULAR HEMOGLOBIN 26.3 pg (28-32); MEAN CORPUSCULAR HGB CONC 28.2 g/dL (31-35); MEAN CORPUSCULAR VOLUME 93.1 fL (81-99); MONOCYTES # (AUTO) 0.3 (0.2-0.8); MONOCYTES % 2.8 % (4.4-11.3); NEUTROPHILS # (AUTO) 8.8 (2.1-6.9); NEUTROPHILS % 83.3 % (38.7-80.0); PLATELET COUNT 388 x10e3/uL (140-360); RED BLOOD COUNT 3.35 x10e6/uL (3.6-5.1); RED CELL DISTRIBUTION WIDTH 19.2 % (11.7-14.4)
[2020-10-23] MEDS: ACETAMINOPHEN 325 MG/10 ML UDC NG PRN (06:06)
[2020-10-23 06:27] LABS: ALANINE AMINOTRANSFERASE 52 IU/L (0-55); ALBUMIN 2.9 g/dL (3.5-5.0); ALBUMIN/GLOBULIN RATIO 0.6 (0.8-2.0); ALKALINE PHOSPHATASE 204 IU/L (40-150); ANION GAP 13.2 mmol/L (8-16); BLOOD UREA NITROGEN 39 mg/dL (7-26); BUN/CREATININE RATIO 61 (6-25); CARBON DIOXIDE 32 mmol/L (22-29); CHLORIDE 97 mmol/L (98-107); CREATININE, SERUM 0.64 mg/dL (0.57-1.11); EST GLOMERULAR FILTRATION RATE > 60 ML/MIN (60-); POTASSIUM 5.2 mmol/L (3.5-5.1); SODIUM 137 mmol/L (136-145)
[2020-10-23 06:49] LABS: GLUCOSE 451 mg/dL (74-118)
[2020-10-23] MEDS: GENTAMICIN SULFATE 0.3% OP 5 ML BTL OP SCH ×2 (08:00→15:16)
[2020-10-23] MEDS: BALSAM PERU/CASTOR OIL 60 GM OINT...G. TP SCH (08:30)
[2020-10-23] MEDS: FONDAPARINUX SODIUM 7.5 MG/0.6 ML SYR SQ SCH (08:30)
[2020-10-23] MEDS: INSULIN GLARGINE 100 UNITS/ML VIAL SQ SCH ×2 (08:30→21:00)
[2020-10-23] MEDS: ARTIFICIAL TEARS (OPTH) 15 ML BTL OU SCH ×2 (08:30→16:33)
[2020-10-23] MEDS ORDERED: SODIUM CHLORIDE 0.45% 1,000 ML IV ONE (09:00)
[2020-10-23] MEDS: PROPOFOL IV EMULSION 10MG/ML 100 ML IV SCH (10:32)
[2020-10-23] MEDS ORDERED: MIDAZOLAM HCL 5MG/ML 10ML VIAL 100 ML BAG IV ONE (12:01)
[2020-10-23] MEDS: PRAMIPEXOLE DIHYDROCHLORIDE 0.25 MG TAB PO SCH (16:38)
[2020-10-24] VITALS (25 sets, daily range): BP systolic 93–164; BP diastolic 51–69
[2020-10-24] MEDS: GENTAMICIN SULFATE 0.3% OP 5 ML BTL OP SCH ×3 (00:28→16:03)
[2020-10-24] MEDS: METOCLOPRAMIDE HCL 10 MG/2ML VIAL IV SCH ×4 (01:17→17:26)
[2020-10-24] MEDS: INSULIN REGULAR, HUMAN 100 UNIT/1 ML 3ML VIAL SQ SCH ×4 (05:54→23:52)
[2020-10-24 06:08] LABS: BASOPHILS % 0.2 % (0.0-1.0); EOSINOPHILS # (AUTO) 0.1 (0.0-0.4); EOSINOPHILS % 0.8 % (0.0-6.0); HEMATOCRIT 28.6 % (34.2-44.1); HEMOGLOBIN 7.9 g/dL (12.0-16.0); LYMPHOCYTES # (AUTO) 1.7 (1.0-3.2); LYMPHOCYTES % 15.6 % (18.0-39.1); MEAN CORPUSCULAR HEMOGLOBIN 26.2 pg (28-32); MEAN CORPUSCULAR HGB CONC 27.6 g/dL (31-35); MEAN CORPUSCULAR VOLUME 94.7 fL (81-99); MONOCYTES # (AUTO) 0.6 (0.2-0.8); NEUTROPHILS # (AUTO) 8.2 (2.1-6.9); NEUTROPHILS % 76.8 % (38.7-80.0); PLATELET COUNT 340 x10e3/uL (140-360); RED BLOOD COUNT 3.02 x10e6/uL (3.6-5.1); RED CELL DISTRIBUTION WIDTH 19.2 % (11.7-14.4)
[2020-10-24 06:30] LABS: ALANINE AMINOTRANSFERASE 60 IU/L (0-55); ALBUMIN 2.6 g/dL (3.5-5.0); ALBUMIN/GLOBULIN RATIO 0.6 (0.8-2.0); ALKALINE PHOSPHATASE 143 IU/L (40-150); ANION GAP 11.1 mmol/L (8-16); BLOOD UREA NITROGEN 26 mg/dL (7-26); BUN/CREATININE RATIO 67 (6-25); CALCIUM 9.3 mg/dL (8.4-10.2); CARBON DIOXIDE 37 mmol/L (22-29); CHLORIDE 99 mmol/L (98-107); CREATININE, SERUM 0.39 mg/dL (0.57-1.11); EST GLOMERULAR FILTRATION RATE > 60 ML/MIN (60-); GLUCOSE 101 mg/dL (74-118); POTASSIUM 4.1 mmol/L (3.5-5.1); SODIUM 143 mmol/L (136-145)
[2020-10-24] MEDS: ARTIFICIAL TEARS (OPTH) 15 ML BTL OU SCH ×2 (08:08→16:03)
[2020-10-24] MEDS: FONDAPARINUX SODIUM 7.5 MG/0.6 ML SYR SQ SCH (08:09)
[2020-10-24] MEDS: PRAMIPEXOLE DIHYDROCHLORIDE 0.25 MG TAB PO SCH ×2 (08:09→17:26)
[2020-10-24] MEDS: INSULIN GLARGINE 100 UNITS/ML VIAL SQ SCH ×2 (08:09→20:36)
[2020-10-24] MEDS: BALSAM PERU/CASTOR OIL 60 GM OINT...G. TP SCH (08:10)
[2020-10-24 10:39] LABS: HYPOCHROMASIA SLIGHT
[2020-10-24 10:42] LABS: ANISOCYTOSIS MODERATE; POLYCHROMASIA FEW
[2020-10-24 10:44] LABS: PLATELET ESTIMATE ADEQUATE; PLATELET MORPHOLOGY COMMENT NORMAL; RBC MORPHOLOGY COMMENT ABNORMAL
[2020-10-24] MEDS: PROPOFOL IV EMULSION 10MG/ML 100 ML IV SCH (11:45)
[2020-10-25] VITALS (24 sets, daily range): BP systolic 77–171; BP diastolic 54–97
[2020-10-25] MEDS: METOCLOPRAMIDE HCL 10 MG/2ML VIAL IV SCH ×4 (00:03→17:53)
[2020-10-25] MEDS: GENTAMICIN SULFATE 0.3% OP 5 ML BTL OP SCH ×3 (00:04→17:33)
[2020-10-25] MEDS: INSULIN REGULAR, HUMAN 100 UNIT/1 ML 3ML VIAL SQ SCH ×3 (05:59→17:39)
[2020-10-25 06:10] LABS: BASOPHILS % 0.2 % (0.0-1.0); EOSINOPHILS # (AUTO) 0.1 (0.0-0.4); EOSINOPHILS % 1.3 % (0.0-6.0); HEMATOCRIT 28.6 % (34.2-44.1); HEMOGLOBIN 7.9 g/dL (12.0-16.0); LYMPHOCYTES # (AUTO) 1.6 (1.0-3.2); LYMPHOCYTES % 16.1 % (18.0-39.1); MEAN CORPUSCULAR HEMOGLOBIN 26.5 pg (28-32); MEAN CORPUSCULAR HGB CONC 27.6 g/dL (31-35); MONOCYTES # (AUTO) 0.5 (0.2-0.8); MONOCYTES % 5.5 % (4.4-11.3); NEUTROPHILS # (AUTO) 7.3 (2.1-6.9); NEUTROPHILS % 76.4 % (38.7-80.0); PLATELET COUNT 342 x10e3/uL (140-360); RED BLOOD COUNT 2.98 x10e6/uL (3.6-5.1); RED CELL DISTRIBUTION WIDTH 19.1 % (11.7-14.4)
[2020-10-25 06:23] LABS: ALANINE AMINOTRANSFERASE 48 IU/L (0-55); ALBUMIN 2.5 g/dL (3.5-5.0); ALBUMIN/GLOBULIN RATIO 0.5 (0.8-2.0); ALKALINE PHOSPHATASE 129 IU/L (40-150); ANION GAP 8.9 mmol/L (8-16); BLOOD UREA NITROGEN 23 mg/dL (7-26); BUN/CREATININE RATIO 56 (6-25); CALCIUM 8.6 mg/dL (8.4-10.2); CHLORIDE 98 mmol/L (98-107); CREATININE, SERUM 0.41 mg/dL (0.57-1.11); EST GLOMERULAR FILTRATION RATE > 60 ML/MIN (60-); GLUCOSE 166 mg/dL (74-118); POTASSIUM 3.9 mmol/L (3.5-5.1); SODIUM 144 mmol/L (136-145)
[2020-10-25 06:39] LABS: CARBON DIOXIDE 41 mmol/L (22-29)
[2020-10-25] MEDS: FONDAPARINUX SODIUM 7.5 MG/0.6 ML SYR SQ SCH (08:33)
[2020-10-25] MEDS: PRAMIPEXOLE DIHYDROCHLORIDE 0.25 MG TAB PO SCH ×2 (08:34→17:53)
[2020-10-25] MEDS: ARTIFICIAL TEARS (OPTH) 15 ML BTL OU SCH ×2 (08:34→17:33)
[2020-10-25] MEDS: INSULIN GLARGINE 100 UNITS/ML VIAL SQ SCH ×2 (08:53→20:04)
[2020-10-25] MEDS: PROPOFOL IV EMULSION 10MG/ML 100 ML IV SCH (08:54)
[2020-10-26] VITALS (26 sets, daily range): BP systolic 73–169; BP diastolic 61–98
[2020-10-26] MEDS: GENTAMICIN SULFATE 0.3% OP 5 ML BTL OP SCH ×3 (00:25→16:03)
[2020-10-26] MEDS: METOCLOPRAMIDE HCL 10 MG/2ML VIAL IV SCH ×4 (00:25→17:31)
[2020-10-26] MEDS: INSULIN REGULAR, HUMAN 100 UNIT/1 ML 3ML VIAL SQ SCH ×4 (00:54→18:11)
[2020-10-26 06:15] LABS: BASOPHILS % 0.2 % (0.0-1.0); EOSINOPHILS # (AUTO) 0.1 (0.0-0.4); EOSINOPHILS % 1.2 % (0.0-6.0); HEMATOCRIT 27.7 % (34.2-44.1); HEMOGLOBIN 7.7 g/dL (12.0-16.0); LYMPHOCYTES # (AUTO) 1.8 (1.0-3.2); LYMPHOCYTES % 20.3 % (18.0-39.1); MEAN CORPUSCULAR HEMOGLOBIN 25.6 pg (28-32); MEAN CORPUSCULAR HGB CONC 27.8 g/dL (31-35); MONOCYTES # (AUTO) 0.5 (0.2-0.8); MONOCYTES % 5.9 % (4.4-11.3); NEUTROPHILS # (AUTO) 6.5 (2.1-6.9); NEUTROPHILS % 71.7 % (38.7-80.0); PLATELET COUNT 361 x10e3/uL (140-360); RED BLOOD COUNT 3.01 x10e6/uL (3.6-5.1); RED CELL DISTRIBUTION WIDTH 18.9 % (11.7-14.4)
[2020-10-26 06:34] LABS: ALANINE AMINOTRANSFERASE 41 IU/L (0-55); ALBUMIN 2.5 g/dL (3.5-5.0); ALBUMIN/GLOBULIN RATIO 0.5 (0.8-2.0); ALKALINE PHOSPHATASE 118 IU/L (40-150); BLOOD UREA NITROGEN 23 mg/dL (7-26); BUN/CREATININE RATIO 59 (6-25); CHLORIDE 95 mmol/L (98-107); CREATININE, SERUM 0.39 mg/dL (0.57-1.11); EST GLOMERULAR FILTRATION RATE > 60 ML/MIN (60-); GLUCOSE 146 mg/dL (74-118); SODIUM 146 mmol/L (136-145)
[2020-10-26 06:35] LABS: CARBON DIOXIDE 44 mmol/L (22-29)
[2020-10-26] MEDS: PRAMIPEXOLE DIHYDROCHLORIDE 0.25 MG TAB PO SCH ×2 (08:47→17:31)
[2020-10-26] MEDS: ARTIFICIAL TEARS (OPTH) 15 ML BTL OU SCH ×2 (08:47→16:21)
[2020-10-26] MEDS: FONDAPARINUX SODIUM 7.5 MG/0.6 ML SYR SQ SCH (08:47)
[2020-10-26] MEDS: INSULIN GLARGINE 100 UNITS/ML VIAL SQ SCH ×2 (08:56→20:07)
[2020-10-26] MEDS ORDERED: SODIUM CHLORIDE 0.45% 1,000 ML IV ONE (10:30)
[2020-10-27] VITALS (24 sets, daily range): BP systolic 95–157; BP diastolic 48–117
[2020-10-27] MEDS: INSULIN GLARGINE 100 UNITS/ML VIAL SQ SCH ×2 (00:10→10:48)
[2020-10-27] MEDS: METOCLOPRAMIDE HCL 10 MG/2ML VIAL IV SCH ×4 (00:25→17:12)
[2020-10-27] MEDS: GENTAMICIN SULFATE 0.3% OP 5 ML BTL OP SCH ×3 (00:25→16:10)
[2020-10-27 06:10] LABS: BASOPHILS % 0.3 % (0.0-1.0); EOSINOPHILS # (AUTO) 0.2 (0.0-0.4); EOSINOPHILS % 1.7 % (0.0-6.0); HEMATOCRIT 28.2 % (34.2-44.1); HEMOGLOBIN 7.8 g/dL (12.0-16.0); LYMPHOCYTES # (AUTO) 2.1 (1.0-3.2); LYMPHOCYTES % 20.1 % (18.0-39.1); MEAN CORPUSCULAR HEMOGLOBIN 25.4 pg (28-32); MEAN CORPUSCULAR HGB CONC 27.7 g/dL (31-35); MEAN CORPUSCULAR VOLUME 91.9 fL (81-99); MONOCYTES # (AUTO) 0.5 (0.2-0.8); MONOCYTES % 5.1 % (4.4-11.3); NEUTROPHILS # (AUTO) 7.7 (2.1-6.9); NEUTROPHILS % 72.1 % (38.7-80.0); PLATELET COUNT 375 x10e3/uL (140-360); RED BLOOD COUNT 3.07 x10e6/uL (3.6-5.1); RED CELL DISTRIBUTION WIDTH 18.6 % (11.7-14.4)
[2020-10-27] MEDS: INSULIN REGULAR, HUMAN 100 UNIT/1 ML 3ML VIAL SQ SCH ×4 (06:17→17:12)
[2020-10-27 06:21] LABS: ALANINE AMINOTRANSFERASE 36 IU/L (0-55); ALBUMIN 2.6 g/dL (3.5-5.0); ALBUMIN/GLOBULIN RATIO 0.6 (0.8-2.0); ALKALINE PHOSPHATASE 113 IU/L (40-150); ANION GAP 10.9 mmol/L (8-16); BLOOD UREA NITROGEN 20 mg/dL (7-26); BUN/CREATININE RATIO 53 (6-25); CALCIUM 8.9 mg/dL (8.4-10.2); CHLORIDE 91 mmol/L (98-107); CREATININE, SERUM 0.38 mg/dL (0.57-1.11); EST GLOMERULAR FILTRATION RATE > 60 ML/MIN (60-); GLUCOSE 156 mg/dL (74-118); POTASSIUM 3.9 mmol/L (3.5-5.1); SODIUM 141 mmol/L (136-145)
[2020-10-27 06:23] LABS: CARBON DIOXIDE 43 mmol/L (22-29)
[2020-10-27 08:03] LABS: HYPOCHROMASIA SLIGHT; POIKILOCYTOSIS SLIGHT; POLYCHROMASIA FEW
[2020-10-27 08:04] LABS: ANISOCYTOSIS SLIGHT
[2020-10-27 08:06] LABS: PLATELET ESTIMATE ADEQUATE; PLATELET MORPHOLOGY COMMENT NORMAL; TARGET CELLS FEW
[2020-10-27] MEDS: ARTIFICIAL TEARS (OPTH) 15 ML BTL OU SCH ×2 (10:47→17:11)
[2020-10-27] MEDS: PRAMIPEXOLE DIHYDROCHLORIDE 0.25 MG TAB PO SCH ×2 (10:47→17:11)
[2020-10-28] VITALS (26 sets, daily range): BP systolic 92–139; BP diastolic 54–75
[2020-10-28] MEDS: GENTAMICIN SULFATE 0.3% OP 5 ML BTL OP SCH ×4 (01:04→23:55)
[2020-10-28] MEDS: METOCLOPRAMIDE HCL 10 MG/2ML VIAL IV SCH ×5 (01:04→23:55)
[2020-10-28] MEDS: INSULIN REGULAR, HUMAN 100 UNIT/1 ML 3ML VIAL SQ SCH ×4 (06:18→17:07)
[2020-10-28 06:29] LABS: BASOPHILS # (AUTO) 0.1 (0.0-0.1); BASOPHILS % 0.3 % (0.0-1.0); EOSINOPHILS # (AUTO) 0.1 (0.0-0.4); EOSINOPHILS % 0.7 % (0.0-6.0); HEMATOCRIT 29.7 % (34.2-44.1); HEMOGLOBIN 8.1 g/dL (12.0-16.0); LYMPHOCYTES # (AUTO) 3.1 (1.0-3.2); LYMPHOCYTES % 20.5 % (18.0-39.1); MEAN CORPUSCULAR HEMOGLOBIN 25.2 pg (28-32); MEAN CORPUSCULAR HGB CONC 27.3 g/dL (31-35); MEAN CORPUSCULAR VOLUME 92.5 fL (81-99); MONOCYTES # (AUTO) 0.8 (0.2-0.8); MONOCYTES % 5.4 % (4.4-11.3); NEUTROPHILS # (AUTO) 10.8 (2.1-6.9); NEUTROPHILS % 72.4 % (38.7-80.0); PLATELET COUNT 369 x10e3/uL (140-360); RED BLOOD COUNT 3.21 x10e6/uL (3.6-5.1); RED CELL DISTRIBUTION WIDTH 18.6 % (11.7-14.4)
[2020-10-28 06:53] LABS: ALANINE AMINOTRANSFERASE 33 IU/L (0-55); ALBUMIN 2.6 g/dL (3.5-5.0); ALBUMIN/GLOBULIN RATIO 0.6 (0.8-2.0); ALKALINE PHOSPHATASE 122 IU/L (40-150); ANION GAP 9.4 mmol/L (8-16); BLOOD UREA NITROGEN 24 mg/dL (7-26); BUN/CREATININE RATIO 57 (6-25); CALCIUM 9.2 mg/dL (8.4-10.2); CHLORIDE 90 mmol/L (98-107); CREATININE, SERUM 0.42 mg/dL (0.57-1.11); EST GLOMERULAR FILTRATION RATE > 60 ML/MIN (60-); GLUCOSE 155 mg/dL (74-118); POTASSIUM 4.4 mmol/L (3.5-5.1); SODIUM 142 mmol/L (136-145)
[2020-10-28 07:10] LABS: CARBON DIOXIDE 47 mmol/L (22-29)
[2020-10-28] MEDS: INSULIN GLARGINE 100 UNITS/ML VIAL SQ SCH ×2 (09:00→21:49)
[2020-10-28] MEDS: ARTIFICIAL TEARS (OPTH) 15 ML BTL OU SCH ×2 (10:23→16:11)
[2020-10-28] MEDS: PRAMIPEXOLE DIHYDROCHLORIDE 0.25 MG TAB PO SCH ×2 (10:23→16:41)
[2020-10-28] MEDS ORDERED: SODIUM CHLORIDE 0.9% 500ML 500 ML IV ONE (10:45)
[2020-10-28 11:55] LABS: ABG PH 7.47 (7.35-7.45)
[2020-10-28 11:56] LABS: ABG HCO3 49 mmol/L (22-26); ABG PCO2 67 mmHg (35-45); ABG PO2 58 mmHg (80-105); ABG TCO2 50
[2020-10-28] MEDS: AMANTADINE HCL 50 MG/5 ML SOLUTION PO SCH (16:41)
[2020-10-28] MEDS ORDERED: AMANTADINE HCL 100 MG CAP PO SCH (17:00)
[2020-10-29] VITALS (20 sets, daily range): BP systolic 104–125; BP diastolic 52–70
[2020-10-29] MEDS: INSULIN REGULAR, HUMAN 100 UNIT/1 ML 3ML VIAL SQ SCH ×4 (01:27→18:17)
[2020-10-29] MEDS: METOCLOPRAMIDE HCL 10 MG/2ML VIAL IV SCH ×4 (06:09→23:54)
[2020-10-29 06:54] LABS: BASOPHILS # (AUTO) 0.1 (0.0-0.1); BASOPHILS % 0.6 % (0.0-1.0); EOSINOPHILS # (AUTO) 0.2 (0.0-0.4); HEMOGLOBIN 7.3 g/dL (12.0-16.0); LYMPHOCYTES # (AUTO) 2.1 (1.0-3.2); LYMPHOCYTES % 17.4 % (18.0-39.1); MEAN CORPUSCULAR HEMOGLOBIN 25.5 pg (28-32); MEAN CORPUSCULAR VOLUME 94.4 fL (81-99); MONOCYTES # (AUTO) 0.7 (0.2-0.8); MONOCYTES % 5.6 % (4.4-11.3); NEUTROPHILS % 73.9 % (38.7-80.0); PLATELET COUNT 348 x10e3/uL (140-360); RED BLOOD COUNT 2.86 x10e6/uL (3.6-5.1); RED CELL DISTRIBUTION WIDTH 18.6 % (11.7-14.4)
[2020-10-29 07:30] LABS: ALANINE AMINOTRANSFERASE 22 IU/L (0-55); ALBUMIN 2.5 g/dL (3.5-5.0); ALBUMIN/GLOBULIN RATIO 0.6 (0.8-2.0); ALKALINE PHOSPHATASE 108 IU/L (40-150); ANION GAP 10.3 mmol/L (8-16); BLOOD UREA NITROGEN 21 mg/dL (7-26); BUN/CREATININE RATIO 54 (6-25); CALCIUM 8.6 mg/dL (8.4-10.2); CHLORIDE 91 mmol/L (98-107); CREATININE, SERUM 0.39 mg/dL (0.57-1.11); EST GLOMERULAR FILTRATION RATE > 60 ML/MIN (60-); GLUCOSE 141 mg/dL (74-118); POTASSIUM 4.3 mmol/L (3.5-5.1); SODIUM 143 mmol/L (136-145)
[2020-10-29 07:38] LABS: CARBON DIOXIDE 46 mmol/L (22-29)
[2020-10-29] MEDS: GENTAMICIN SULFATE 0.3% OP 5 ML BTL OP SCH ×3 (08:18→23:54)
[2020-10-29] MEDS: BALSAM PERU/CASTOR OIL 60 GM OINT...G. TP SCH (09:33)
[2020-10-29] MEDS: PRAMIPEXOLE DIHYDROCHLORIDE 0.25 MG TAB PO SCH ×2 (09:33→16:24)
[2020-10-29] MEDS: AMANTADINE HCL 50 MG/5 ML SOLUTION PO SCH ×2 (09:33→16:24)
[2020-10-29] MEDS: INSULIN GLARGINE 100 UNITS/ML VIAL SQ SCH ×2 (09:33→20:22)
[2020-10-29] MEDS: ARTIFICIAL TEARS (OPTH) 15 ML BTL OU SCH ×2 (09:33→16:24)
[2020-10-29] MEDS: ACETAMINOPHEN 325 MG/10 ML UDC NG PRN (09:34)
[2020-10-29 10:37] LABS: HYPOCHROMASIA SLIGHT; PLATELET ESTIMATE ADEQUATE; PLATELET MORPHOLOGY COMMENT NORMAL; STOMATOCYTES SLIGHT
[2020-10-29 10:38] LABS: ANISOCYTOSIS SLIGHT; POLYCHROMASIA FEW; RBC MORPHOLOGY COMMENT ABNORMAL
[2020-10-29] MEDS ORDERED: ACETAMINOPHEN 325 MG TAB PO STA (14:04)
[2020-10-29] MEDS ORDERED: FUROSEMIDE INJ 10 MG/ML 2 ML VIAL IV ONE (14:15)
[2020-10-29] MEDS ORDERED: SODIUM CHLORIDE 0.9% 250ML 250 ML IV ONE (14:15)
[2020-10-30] VITALS (24 sets, daily range): BP systolic 92–154; BP diastolic 52–84
[2020-10-30] MEDS: INSULIN REGULAR, HUMAN 100 UNIT/1 ML 3ML VIAL SQ SCH ×5 (00:03→23:07)
[2020-10-30] MEDS: METOCLOPRAMIDE HCL 10 MG/2ML VIAL IV SCH ×4 (06:19→23:07)
[2020-10-30 06:33] LABS: BASOPHILS # (AUTO) 0.1 (0.0-0.1); BASOPHILS % 0.5 % (0.0-1.0); EOSINOPHILS # (AUTO) 0.2 (0.0-0.4); EOSINOPHILS % 1.4 % (0.0-6.0); HEMATOCRIT 34.9 % (34.2-44.1); HEMOGLOBIN 9.5 g/dL (12.0-16.0); LYMPHOCYTES # (AUTO) 2.4 (1.0-3.2); LYMPHOCYTES % 16.4 % (18.0-39.1); MEAN CORPUSCULAR HEMOGLOBIN 24.7 pg (28-32); MEAN CORPUSCULAR HGB CONC 27.2 g/dL (31-35); MEAN CORPUSCULAR VOLUME 90.9 fL (81-99); MONOCYTES # (AUTO) 0.8 (0.2-0.8); MONOCYTES % 5.6 % (4.4-11.3); NEUTROPHILS # (AUTO) 11.2 (2.1-6.9); NEUTROPHILS % 75.6 % (38.7-80.0); PLATELET COUNT 325 x10e3/uL (140-360); RED BLOOD COUNT 3.84 x10e6/uL (3.6-5.1); RED CELL DISTRIBUTION WIDTH 20.4 % (11.7-14.4)
[2020-10-30 07:02] LABS: ALANINE AMINOTRANSFERASE 21 IU/L (0-55); ALBUMIN 2.6 g/dL (3.5-5.0); ALBUMIN/GLOBULIN RATIO 0.6 (0.8-2.0); ALKALINE PHOSPHATASE 115 IU/L (40-150); BLOOD UREA NITROGEN 19 mg/dL (7-26); BUN/CREATININE RATIO 49 (6-25); CALCIUM 8.8 mg/dL (8.4-10.2); CHLORIDE 87 mmol/L (98-107); CREATININE, SERUM 0.39 mg/dL (0.57-1.11); EST GLOMERULAR FILTRATION RATE > 60 ML/MIN (60-); GLUCOSE 156 mg/dL (74-118); SODIUM 142 mmol/L (136-145)
[2020-10-30 07:13] LABS: CARBON DIOXIDE 47 mmol/L (22-29)
[2020-10-30] MEDS: ARTIFICIAL TEARS (OPTH) 15 ML BTL OU SCH ×2 (10:06→17:49)
[2020-10-30] MEDS: PRAMIPEXOLE DIHYDROCHLORIDE 0.25 MG TAB PO SCH ×2 (10:06→18:06)
[2020-10-30] MEDS: INSULIN GLARGINE 100 UNITS/ML VIAL SQ SCH ×2 (10:06→20:05)
[2020-10-30] MEDS: BALSAM PERU/CASTOR OIL 60 GM OINT...G. TP SCH (10:06)
[2020-10-30] MEDS: AMANTADINE HCL 50 MG/5 ML SOLUTION PO SCH ×2 (10:06→18:06)
[2020-10-31] VITALS (24 sets, daily range): BP systolic 115–132; BP diastolic 62–77
[2020-10-31] MEDS: METOCLOPRAMIDE HCL 10 MG/2ML VIAL IV SCH ×4 (06:21→23:25)
[2020-10-31] MEDS: INSULIN REGULAR, HUMAN 100 UNIT/1 ML 3ML VIAL SQ SCH ×3 (06:29→17:41)
[2020-10-31 06:36] LABS: BASOPHILS % 0.3 % (0.0-1.0); EOSINOPHILS # (AUTO) 0.2 (0.0-0.4); EOSINOPHILS % 1.4 % (0.0-6.0); HEMATOCRIT 33.3 % (34.2-44.1); LYMPHOCYTES # (AUTO) 2.1 (1.0-3.2); LYMPHOCYTES % 20.5 % (18.0-39.1); MEAN CORPUSCULAR HEMOGLOBIN 24.6 pg (28-32); MONOCYTES # (AUTO) 0.6 (0.2-0.8); MONOCYTES % 6.1 % (4.4-11.3); NEUTROPHILS # (AUTO) 7.4 (2.1-6.9); NEUTROPHILS % 71.2 % (38.7-80.0); PLATELET COUNT 291 x10e3/uL (140-360); RED BLOOD COUNT 3.66 x10e6/uL (3.6-5.1); RED CELL DISTRIBUTION WIDTH 19.5 % (11.7-14.4)
[2020-10-31 07:31] LABS: ALANINE AMINOTRANSFERASE 20 IU/L (0-55); ALBUMIN 2.5 g/dL (3.5-5.0); ALBUMIN/GLOBULIN RATIO 0.6 (0.8-2.0); ALKALINE PHOSPHATASE 114 IU/L (40-150); BLOOD UREA NITROGEN 24 mg/dL (7-26); BUN/CREATININE RATIO 65 (6-25); CALCIUM 8.5 mg/dL (8.4-10.2); CHLORIDE 87 mmol/L (98-107); CREATININE, SERUM 0.37 mg/dL (0.57-1.11); EST GLOMERULAR FILTRATION RATE > 60 ML/MIN (60-); GLUCOSE 169 mg/dL (74-118); SODIUM 141 mmol/L (136-145)
[2020-10-31 07:40] LABS: CARBON DIOXIDE 49 mmol/L (22-29)
[2020-10-31] MEDS: AMANTADINE HCL 50 MG/5 ML SOLUTION PO SCH ×2 (08:57→17:24)
[2020-10-31] MEDS: BALSAM PERU/CASTOR OIL 60 GM OINT...G. TP SCH (08:57)
[2020-10-31] MEDS: PRAMIPEXOLE DIHYDROCHLORIDE 0.25 MG TAB PO SCH ×2 (08:57→17:24)
[2020-10-31] MEDS: ARTIFICIAL TEARS (OPTH) 15 ML BTL OU SCH ×2 (08:57→17:24)
[2020-10-31] MEDS: INSULIN GLARGINE 100 UNITS/ML VIAL SQ SCH ×2 (08:58→21:11)
[2020-11-01] VITALS (26 sets, daily range): BP systolic 122–152; BP diastolic 64–87
[2020-11-01 06:16] LABS: BASOPHILS # (AUTO) 0.1 (0.0-0.1); BASOPHILS % 0.6 % (0.0-1.0); EOSINOPHILS # (AUTO) 0.3 (0.0-0.4); EOSINOPHILS % 2.7 % (0.0-6.0); HEMATOCRIT 33.9 % (34.2-44.1); HEMOGLOBIN 9.2 g/dL (12.0-16.0); LYMPHOCYTES # (AUTO) 2.2 (1.0-3.2); LYMPHOCYTES % 20.9 % (18.0-39.1); MEAN CORPUSCULAR HEMOGLOBIN 24.5 pg (28-32); MEAN CORPUSCULAR HGB CONC 27.1 g/dL (31-35); MEAN CORPUSCULAR VOLUME 90.4 fL (81-99); MONOCYTES # (AUTO) 0.7 (0.2-0.8); MONOCYTES % 6.2 % (4.4-11.3); NEUTROPHILS # (AUTO) 7.3 (2.1-6.9); NEUTROPHILS % 69.2 % (38.7-80.0); PLATELET COUNT 282 x10e3/uL (140-360); RED BLOOD COUNT 3.75 x10e6/uL (3.6-5.1); RED CELL DISTRIBUTION WIDTH 19.5 % (11.7-14.4)
[2020-11-01] MEDS: METOCLOPRAMIDE HCL 10 MG/2ML VIAL IV SCH ×3 (06:37→17:42)
[2020-11-01] MEDS: INSULIN REGULAR, HUMAN 100 UNIT/1 ML 3ML VIAL SQ SCH ×4 (06:39→17:43)
[2020-11-01 06:49] LABS: ALANINE AMINOTRANSFERASE 24 IU/L (0-55); ALBUMIN 2.5 g/dL (3.5-5.0); ALBUMIN/GLOBULIN RATIO 0.5 (0.8-2.0); ALKALINE PHOSPHATASE 132 IU/L (40-150); ANION GAP 10.3 mmol/L (8-16); BLOOD UREA NITROGEN 23 mg/dL (7-26); BUN/CREATININE RATIO 56 (6-25); CALCIUM 8.5 mg/dL (8.4-10.2); CHLORIDE 89 mmol/L (98-107); CREATININE, SERUM 0.41 mg/dL (0.57-1.11); EST GLOMERULAR FILTRATION RATE > 60 ML/MIN (60-); GLUCOSE 244 mg/dL (74-118); POTASSIUM 4.3 mmol/L (3.5-5.1); SODIUM 141 mmol/L (136-145)
[2020-11-01 06:52] LABS: CARBON DIOXIDE 46 mmol/L (22-29)
[2020-11-01] MEDS: BALSAM PERU/CASTOR OIL 60 GM OINT...G. TP SCH (08:30)
[2020-11-01] MEDS: ARTIFICIAL TEARS (OPTH) 15 ML BTL OU SCH ×2 (08:30→17:42)
[2020-11-01] MEDS: AMANTADINE HCL 50 MG/5 ML SOLUTION PO SCH ×2 (08:30→17:42)
[2020-11-01] MEDS: DONEPEZIL HCL 5 MG TAB PO SCH (08:30)
[2020-11-01] MEDS: PRAMIPEXOLE DIHYDROCHLORIDE 0.25 MG TAB PO SCH ×2 (08:30→17:42)
[2020-11-01] MEDS: INSULIN GLARGINE 100 UNITS/ML VIAL SQ SCH ×2 (09:20→21:54)
[2020-11-01] MEDS: FONDAPARINUX SODIUM 7.5 MG/0.6 ML SYR SQ SCH (17:42)
[2020-11-02] VITALS (25 sets, daily range): BP systolic 98–169; BP diastolic 63–94
[2020-11-02] MEDS: INSULIN REGULAR, HUMAN 100 UNIT/1 ML 3ML VIAL SQ SCH ×4 (00:27→17:34)
[2020-11-02] MEDS: METOCLOPRAMIDE HCL 10 MG/2ML VIAL IV SCH ×4 (00:27→17:26)
[2020-11-02 07:50] LABS: BASOPHILS # (AUTO) 0.1 (0.0-0.1); BASOPHILS % 0.7 % (0.0-1.0); EOSINOPHILS # (AUTO) 0.4 (0.0-0.4); EOSINOPHILS % 3.5 % (0.0-6.0); HEMATOCRIT 34.8 % (34.2-44.1); HEMOGLOBIN 9.5 g/dL (12.0-16.0); LYMPHOCYTES # (AUTO) 2.8 (1.0-3.2); LYMPHOCYTES % 23.3 % (18.0-39.1); MEAN CORPUSCULAR HEMOGLOBIN 24.8 pg (28-32); MEAN CORPUSCULAR HGB CONC 27.3 g/dL (31-35); MEAN CORPUSCULAR VOLUME 90.9 fL (81-99); MONOCYTES # (AUTO) 0.7 (0.2-0.8); MONOCYTES % 5.9 % (4.4-11.3); NEUTROPHILS # (AUTO) 8.1 (2.1-6.9); NEUTROPHILS % 66.2 % (38.7-80.0); PLATELET COUNT 329 x10e3/uL (140-360); RED BLOOD COUNT 3.83 x10e6/uL (3.6-5.1); RED CELL DISTRIBUTION WIDTH 19.2 % (11.7-14.4)
[2020-11-02 08:02] LABS: ALANINE AMINOTRANSFERASE 27 IU/L (0-55); ALBUMIN 2.6 g/dL (3.5-5.0); ALBUMIN/GLOBULIN RATIO 0.6 (0.8-2.0); ALKALINE PHOSPHATASE 139 IU/L (40-150); ANION GAP 10.4 mmol/L (8-16); BLOOD UREA NITROGEN 21 mg/dL (7-26); BUN/CREATININE RATIO 60 (6-25); CALCIUM 8.8 mg/dL (8.4-10.2); CHLORIDE 89 mmol/L (98-107); CREATININE, SERUM 0.35 mg/dL (0.57-1.11); EST GLOMERULAR FILTRATION RATE > 60 ML/MIN (60-); GLUCOSE 133 mg/dL (74-118); POTASSIUM 4.4 mmol/L (3.5-5.1); SODIUM 141 mmol/L (136-145)
[2020-11-02 08:06] LABS: CARBON DIOXIDE 46 mmol/L (22-29)
[2020-11-02] MEDS: ARTIFICIAL TEARS (OPTH) 15 ML BTL OU SCH ×2 (08:45→17:25)
[2020-11-02] MEDS: BALSAM PERU/CASTOR OIL 60 GM OINT...G. TP SCH (08:45)
[2020-11-02] MEDS: PRAMIPEXOLE DIHYDROCHLORIDE 0.25 MG TAB PO SCH ×2 (08:45→17:26)
[2020-11-02] MEDS: AMANTADINE HCL 50 MG/5 ML SOLUTION PO SCH ×2 (08:45→17:26)
[2020-11-02] MEDS: DONEPEZIL HCL 5 MG TAB PO SCH (08:45)
[2020-11-02] MEDS: INSULIN GLARGINE 100 UNITS/ML VIAL SQ SCH ×2 (08:46→21:20)
[2020-11-02 11:51] LABS: ANISOCYTOSIS SLIGHT; HYPOCHROMASIA SLIGHT; STOMATOCYTES SLIGHT
[2020-11-02 11:52] LABS: PLATELET ESTIMATE ADEQUATE; PLATELET MORPHOLOGY COMMENT NORMAL; RBC MORPHOLOGY COMMENT ABNORMAL
[2020-11-02] MEDS: FONDAPARINUX SODIUM 7.5 MG/0.6 ML SYR SQ SCH (17:26)
[2020-11-02] MEDS: ACETAMINOPHEN 325 MG/10 ML UDC NG PRN (20:52)
[2020-11-03] VITALS (24 sets, daily range): BP systolic 110–144; BP diastolic 64–83
[2020-11-03] MEDS: METOCLOPRAMIDE HCL 10 MG/2ML VIAL IV SCH ×4 (01:05→17:33)
[2020-11-03] MEDS: INSULIN REGULAR, HUMAN 100 UNIT/1 ML 3ML VIAL SQ SCH ×4 (01:05→17:33)
[2020-11-03] MEDS: INSULIN GLARGINE 100 UNITS/ML VIAL SQ SCH ×2 (08:44→22:08)
[2020-11-03] MEDS: PRAMIPEXOLE DIHYDROCHLORIDE 0.25 MG TAB PO SCH ×2 (08:45→16:57)
[2020-11-03] MEDS: ARTIFICIAL TEARS (OPTH) 15 ML BTL OU SCH ×2 (08:45→16:57)
[2020-11-03] MEDS: AMANTADINE HCL 50 MG/5 ML SOLUTION PO SCH ×2 (08:45→16:57)
[2020-11-03] MEDS: DONEPEZIL HCL 5 MG TAB PO SCH (08:45)
[2020-11-03] MEDS: BALSAM PERU/CASTOR OIL 60 GM OINT...G. TP SCH (08:45)
[2020-11-03] MEDS: FONDAPARINUX SODIUM 7.5 MG/0.6 ML SYR SQ SCH (16:57)
[2020-11-03] MEDS: ACETAMINOPHEN 325 MG/10 ML UDC NG PRN (22:09)
[2020-11-04] VITALS (26 sets, daily range): BP systolic 111–151; BP diastolic 65–80
[2020-11-04] MEDS: METOCLOPRAMIDE HCL 10 MG/2ML VIAL IV SCH ×4 (00:32→17:43)
[2020-11-04] MEDS: INSULIN REGULAR, HUMAN 100 UNIT/1 ML 3ML VIAL SQ SCH ×4 (00:32→18:00)
[2020-11-04 08:42] LABS: BASOPHILS # (AUTO) 0.1 (0.0-0.1); BASOPHILS % 0.5 % (0.0-1.0); EOSINOPHILS # (AUTO) 0.4 (0.0-0.4); EOSINOPHILS % 3.5 % (0.0-6.0); HEMATOCRIT 35.2 % (34.2-44.1); HEMOGLOBIN 9.4 g/dL (12.0-16.0); LYMPHOCYTES # (AUTO) 2.5 (1.0-3.2); LYMPHOCYTES % 22.2 % (18.0-39.1); MEAN CORPUSCULAR HEMOGLOBIN 24.4 pg (28-32); MEAN CORPUSCULAR HGB CONC 26.7 g/dL (31-35); MEAN CORPUSCULAR VOLUME 91.4 fL (81-99); MONOCYTES # (AUTO) 0.7 (0.2-0.8); MONOCYTES % 6.5 % (4.4-11.3); NEUTROPHILS # (AUTO) 7.6 (2.1-6.9); NEUTROPHILS % 66.9 % (38.7-80.0); PLATELET COUNT 340 x10e3/uL (140-360); RED BLOOD COUNT 3.85 x10e6/uL (3.6-5.1)
[2020-11-04] MEDS: BALSAM PERU/CASTOR OIL 60 GM OINT...G. TP SCH (08:50)
[2020-11-04] MEDS: PRAMIPEXOLE DIHYDROCHLORIDE 0.25 MG TAB PO SCH ×2 (08:50→17:43)
[2020-11-04] MEDS: ARTIFICIAL TEARS (OPTH) 15 ML BTL OU SCH ×2 (08:50→17:43)
[2020-11-04] MEDS: AMANTADINE HCL 50 MG/5 ML SOLUTION PO SCH ×2 (08:50→17:43)
[2020-11-04] MEDS: INSULIN GLARGINE 100 UNITS/ML VIAL SQ SCH ×2 (08:51→21:45)
[2020-11-04 08:55] LABS: BLOOD UREA NITROGEN 17 mg/dL (7-26); BUN/CREATININE RATIO 46 (6-25); CALCIUM 8.7 mg/dL (8.4-10.2); CHLORIDE 86 mmol/L (98-107); CREATININE, SERUM 0.37 mg/dL (0.57-1.11); EST GLOMERULAR FILTRATION RATE > 60 ML/MIN (60-); GLUCOSE 126 mg/dL (74-118); SODIUM 141 mmol/L (136-145)
[2020-11-04 08:59] LABS: CARBON DIOXIDE 47 mmol/L (22-29)
[2020-11-04] MEDS: DONEPEZIL HCL 5 MG TAB PO SCH (09:04)
[2020-11-04] MEDS: FONDAPARINUX SODIUM 7.5 MG/0.6 ML SYR SQ SCH (17:43)
[2020-11-05] VITALS (25 sets, daily range): BP systolic 118–166; BP diastolic 56–85
[2020-11-05] MEDS: METOCLOPRAMIDE HCL 10 MG/2ML VIAL IV SCH ×4 (00:51→17:48)
[2020-11-05] MEDS: INSULIN REGULAR, HUMAN 100 UNIT/1 ML 3ML VIAL SQ SCH ×5 (00:52→23:51)
[2020-11-05] MEDS: ACETAMINOPHEN 325 MG/10 ML UDC NG PRN ×2 (06:11→21:30)
[2020-11-05 07:04] LABS: BASOPHILS # (AUTO) 0.1 (0.0-0.1); BASOPHILS % 0.6 % (0.0-1.0); EOSINOPHILS # (AUTO) 0.3 (0.0-0.4); EOSINOPHILS % 2.4 % (0.0-6.0); HEMATOCRIT 35.5 % (34.2-44.1); HEMOGLOBIN 9.8 g/dL (12.0-16.0); LYMPHOCYTES # (AUTO) 2.3 (1.0-3.2); LYMPHOCYTES % 19.8 % (18.0-39.1); MEAN CORPUSCULAR HEMOGLOBIN 25.9 pg (28-32); MEAN CORPUSCULAR HGB CONC 27.6 g/dL (31-35); MEAN CORPUSCULAR VOLUME 93.7 fL (81-99); MONOCYTES # (AUTO) 0.7 (0.2-0.8); NEUTROPHILS # (AUTO) 8.4 (2.1-6.9); NEUTROPHILS % 70.6 % (38.7-80.0); PLATELET COUNT 363 x10e3/uL (140-360); RED BLOOD COUNT 3.79 x10e6/uL (3.6-5.1)
[2020-11-05 07:48] LABS: ANION GAP 10.1 mmol/L (8-16); BLOOD UREA NITROGEN 18 mg/dL (7-26); BUN/CREATININE RATIO 53 (6-25); CALCIUM 8.8 mg/dL (8.4-10.2); CHLORIDE 87 mmol/L (98-107); CREATININE, SERUM 0.34 mg/dL (0.57-1.11); EST GLOMERULAR FILTRATION RATE > 60 ML/MIN (60-); GLUCOSE 103 mg/dL (74-118); POTASSIUM 4.1 mmol/L (3.5-5.1); SODIUM 141 mmol/L (136-145)
[2020-11-05 07:50] LABS: CARBON DIOXIDE 48 mmol/L (22-29)
[2020-11-05] MEDS: ARTIFICIAL TEARS (OPTH) 15 ML BTL OU SCH ×2 (09:41→16:54)
[2020-11-05] MEDS: AMANTADINE HCL 50 MG/5 ML SOLUTION PO SCH ×2 (09:41→16:54)
[2020-11-05] MEDS: PRAMIPEXOLE DIHYDROCHLORIDE 0.25 MG TAB PO SCH ×2 (09:41→16:54)
[2020-11-05] MEDS: BALSAM PERU/CASTOR OIL 60 GM OINT...G. TP SCH (09:41)
[2020-11-05] MEDS: DONEPEZIL HCL 5 MG TAB PO SCH (09:41)
[2020-11-05] MEDS: INSULIN GLARGINE 100 UNITS/ML VIAL SQ SCH ×2 (09:42→23:00)
[2020-11-05] MEDS: FONDAPARINUX SODIUM 7.5 MG/0.6 ML SYR SQ SCH (16:54)
[2020-11-05] MEDS ORDERED: TEMAZEPAM 15 MG CAP PO PRN (21:00)
[2020-11-06] VITALS (24 sets, daily range): BP systolic 116–160; BP diastolic 58–83
[2020-11-06] MEDS: METOCLOPRAMIDE HCL 10 MG/2ML VIAL IV SCH ×4 (00:03→17:41)
[2020-11-06] MEDS: INSULIN REGULAR, HUMAN 100 UNIT/1 ML 3ML VIAL SQ SCH ×4 (05:39→23:55)
[2020-11-06 05:55] LABS: BASOPHILS # (AUTO) 0.1 (0.0-0.1); BASOPHILS % 0.5 % (0.0-1.0); EOSINOPHILS # (AUTO) 0.1 (0.0-0.4); EOSINOPHILS % 0.9 % (0.0-6.0); HEMATOCRIT 38.3 % (34.2-44.1); HEMOGLOBIN 10.3 g/dL (12.0-16.0); LYMPHOCYTES # (AUTO) 1.9 (1.0-3.2); LYMPHOCYTES % 14.1 % (18.0-39.1); MEAN CORPUSCULAR HEMOGLOBIN 25.2 pg (28-32); MEAN CORPUSCULAR HGB CONC 26.9 g/dL (31-35); MEAN CORPUSCULAR VOLUME 93.9 fL (81-99); MONOCYTES # (AUTO) 0.7 (0.2-0.8); NEUTROPHILS # (AUTO) 10.5 (2.1-6.9); PLATELET COUNT 380 x10e3/uL (140-360); RED BLOOD COUNT 4.08 x10e6/uL (3.6-5.1); RED CELL DISTRIBUTION WIDTH 18.5 % (11.7-14.4)
[2020-11-06 06:25] LABS: BLOOD UREA NITROGEN 23 mg/dL (7-26); CALCIUM 8.9 mg/dL (8.4-10.2); CHLORIDE 84 mmol/L (98-107); CREATININE, SERUM 0.41 mg/dL (0.57-1.11); GLUCOSE 228 mg/dL (74-118); POTASSIUM 4.3 mmol/L (3.5-5.1); SODIUM 141 mmol/L (136-145)
[2020-11-06 06:28] LABS: BUN/CREATININE RATIO 56 (6-25); EST GLOMERULAR FILTRATION RATE > 60 ML/MIN (60-)
[2020-11-06 06:42] LABS: ANION GAP 12.3 mmol/L (8-16)
[2020-11-06 07:00] LABS: CARBON DIOXIDE 49 mmol/L (22-29)
[2020-11-06] MEDS: INSULIN GLARGINE 100 UNITS/ML VIAL SQ SCH ×2 (08:14→21:00)
[2020-11-06 08:32] LABS: LYMPHOCYTES % (MANUAL) 18 % (19-48); MONOCYTES % (MANUAL) 5 % (3.4-9.0); NEUTROPHILS % (MANUAL) 77 % (40-74)
[2020-11-06] MEDS: ARTIFICIAL TEARS (OPTH) 15 ML BTL OU SCH ×2 (08:41→17:06)
[2020-11-06] MEDS: DONEPEZIL HCL 5 MG TAB PO SCH (08:42)
[2020-11-06] MEDS: PRAMIPEXOLE DIHYDROCHLORIDE 0.25 MG TAB PO SCH ×2 (08:42→17:06)
[2020-11-06] MEDS: AMANTADINE HCL 50 MG/5 ML SOLUTION PO SCH ×2 (08:42→17:06)
[2020-11-06] MEDS: BALSAM PERU/CASTOR OIL 60 GM OINT...G. TP SCH (08:42)
[2020-11-06] MEDS: FONDAPARINUX SODIUM 7.5 MG/0.6 ML SYR SQ SCH (17:06)
[2020-11-07] VITALS (20 sets, daily range): BP systolic 130–164; BP diastolic 59–89
[2020-11-07] MEDS: METOCLOPRAMIDE HCL 10 MG/2ML VIAL IV SCH
[2020-11-07] MEDS: INSULIN REGULAR, HUMAN 100 UNIT/1 ML 3ML VIAL SQ SCH ×3 (05:35→17:25)
[2020-11-07] MEDS: INSULIN GLARGINE 100 UNITS/ML VIAL SQ SCH ×2 (07:07→21:23)
[2020-11-07] MEDS: AMANTADINE HCL 50 MG/5 ML SOLUTION PO SCH ×2 (08:11→16:10)
[2020-11-07] MEDS: BALSAM PERU/CASTOR OIL 60 GM OINT...G. TP SCH (08:11)
[2020-11-07] MEDS: ARTIFICIAL TEARS (OPTH) 15 ML BTL OU SCH ×2 (08:11→16:10)
[2020-11-07] MEDS: DONEPEZIL HCL 5 MG TAB PO SCH (08:11)
[2020-11-07] MEDS: PRAMIPEXOLE DIHYDROCHLORIDE 0.25 MG TAB PO SCH ×2 (08:11→16:11)
[2020-11-07] MEDS: FONDAPARINUX SODIUM 7.5 MG/0.6 ML SYR SQ SCH (16:11)
[2020-11-08] VITALS (16 sets, daily range): BP systolic 108–139; BP diastolic 58–87
[2020-11-08] MEDS: INSULIN REGULAR, HUMAN 100 UNIT/1 ML 3ML VIAL SQ SCH ×5 (00:30→20:57)
[2020-11-08] MEDS: DONEPEZIL HCL 5 MG TAB PO SCH (09:32)
[2020-11-08] MEDS: AMANTADINE HCL 50 MG/5 ML SOLUTION PO SCH ×2 (09:32→17:00)
[2020-11-08] MEDS: ARTIFICIAL TEARS (OPTH) 15 ML BTL OU SCH ×2 (09:32→17:00)
[2020-11-08] MEDS: PRAMIPEXOLE DIHYDROCHLORIDE 0.25 MG TAB PO SCH ×2 (09:32→17:00)
[2020-11-08] MEDS: BALSAM PERU/CASTOR OIL 60 GM OINT...G. TP SCH (09:32)
[2020-11-08] MEDS: INSULIN GLARGINE 100 UNITS/ML VIAL SQ SCH ×2 (09:33→20:55)
[2020-11-08] MEDS: FONDAPARINUX SODIUM 7.5 MG/0.6 ML SYR SQ SCH (17:00)
[2020-11-09] VITALS (8 sets, daily range): BP systolic 112–125; BP diastolic 54–76
[2020-11-09] MEDS: INSULIN REGULAR, HUMAN 100 UNIT/1 ML 3ML VIAL SQ SCH ×3 (05:53→18:00)
[2020-11-09] MEDS: INSULIN GLARGINE 100 UNITS/ML VIAL SQ SCH ×2 (09:00→21:00)
[2020-11-09] MEDS: DONEPEZIL HCL 5 MG TAB PO SCH (09:00)
[2020-11-09] MEDS: ARTIFICIAL TEARS (OPTH) 15 ML BTL OU SCH ×2 (09:00→17:00)
[2020-11-09] MEDS: AMANTADINE HCL 50 MG/5 ML SOLUTION PO SCH ×2 (09:00→17:00)
[2020-11-09] MEDS: PRAMIPEXOLE DIHYDROCHLORIDE 0.25 MG TAB PO SCH ×2 (09:00→17:00)
[2020-11-09] MEDS: BALSAM PERU/CASTOR OIL 60 GM OINT...G. TP SCH (09:00)
[2020-11-09] MEDS: FONDAPARINUX SODIUM 7.5 MG/0.6 ML SYR SQ SCH (17:00)
[2020-11-10] VITALS (8 sets, daily range): BP systolic 104–135; BP diastolic 66–80
[2020-11-10] MEDS: INSULIN REGULAR, HUMAN 100 UNIT/1 ML 3ML VIAL SQ SCH ×5 (06:00→23:27)
[2020-11-10] MEDS: DONEPEZIL HCL 5 MG TAB PO SCH (09:00)
[2020-11-10] MEDS: PRAMIPEXOLE DIHYDROCHLORIDE 0.25 MG TAB PO SCH ×2 (09:00→17:00)
[2020-11-10] MEDS: AMANTADINE HCL 50 MG/5 ML SOLUTION PO SCH ×2 (09:00→17:00)
[2020-11-10] MEDS: INSULIN GLARGINE 100 UNITS/ML VIAL SQ SCH ×2 (09:00→21:00)
[2020-11-10] MEDS: BALSAM PERU/CASTOR OIL 60 GM OINT...G. TP SCH (09:00)
[2020-11-10] MEDS: ARTIFICIAL TEARS (OPTH) 15 ML BTL OU SCH ×2 (09:00→17:00)
[2020-11-10] MEDS: FONDAPARINUX SODIUM 7.5 MG/0.6 ML SYR SQ SCH (17:00)
[2020-11-11] VITALS (8 sets, daily range): BP systolic 114–135; BP diastolic 66–72
[2020-11-11 05:12] LABS: BASOPHILS # (AUTO) 0.1 (0.0-0.1); BASOPHILS % 0.5 % (0.0-1.0); EOSINOPHILS # (AUTO) 0.6 (0.0-0.4); HEMATOCRIT 34.7 % (34.2-44.1); HEMOGLOBIN 9.7 g/dL (12.0-16.0); LYMPHOCYTES # (AUTO) 2.5 (1.0-3.2); LYMPHOCYTES % 22.7 % (18.0-39.1); MEAN CORPUSCULAR HEMOGLOBIN 25.1 pg (28-32); MEAN CORPUSCULAR VOLUME 89.7 fL (81-99); MONOCYTES # (AUTO) 0.8 (0.2-0.8); MONOCYTES % 6.9 % (4.4-11.3); NEUTROPHILS # (AUTO) 7.2 (2.1-6.9); NEUTROPHILS % 64.5 % (38.7-80.0); PLATELET COUNT 324 x10e3/uL (140-360); RED BLOOD COUNT 3.87 x10e6/uL (3.6-5.1); RED CELL DISTRIBUTION WIDTH 19.1 % (11.7-14.4)
[2020-11-11 05:34] LABS: ALANINE AMINOTRANSFERASE 29 IU/L (0-55); ALBUMIN 2.7 g/dL (3.5-5.0); ALBUMIN/GLOBULIN RATIO 0.7 (0.8-2.0); ALKALINE PHOSPHATASE 113 IU/L (40-150); ANION GAP 11.1 mmol/L (8-16); BLOOD UREA NITROGEN 23 mg/dL (7-26); BUN/CREATININE RATIO 64 (6-25); CALCIUM 8.6 mg/dL (8.4-10.2); CHLORIDE 88 mmol/L (98-107); CREATININE, SERUM 0.36 mg/dL (0.57-1.11); EST GLOMERULAR FILTRATION RATE > 60 ML/MIN (60-); GLUCOSE 100 mg/dL (74-118); POTASSIUM 4.1 mmol/L (3.5-5.1); SODIUM 141 mmol/L (136-145)
[2020-11-11 05:40] LABS: CARBON DIOXIDE 46 mmol/L (22-29)
[2020-11-11] MEDS: INSULIN REGULAR, HUMAN 100 UNIT/1 ML 3ML VIAL SQ SCH ×3 (06:00→18:00)
[2020-11-11] MEDS: INSULIN GLARGINE 100 UNITS/ML VIAL SQ SCH ×2 (09:00→23:25)
[2020-11-11] MEDS: PRAMIPEXOLE DIHYDROCHLORIDE 0.25 MG TAB PO SCH ×2 (09:05→17:00)
[2020-11-11] MEDS: AMANTADINE HCL 50 MG/5 ML SOLUTION PO SCH ×2 (09:05→17:00)
[2020-11-11] MEDS: DONEPEZIL HCL 5 MG TAB PO SCH (09:05)
[2020-11-11] MEDS: BALSAM PERU/CASTOR OIL 60 GM OINT...G. TP SCH (09:05)
[2020-11-11] MEDS: ARTIFICIAL TEARS (OPTH) 15 ML BTL OU SCH ×2 (09:05→17:00)
[2020-11-11] MEDS: FONDAPARINUX SODIUM 7.5 MG/0.6 ML SYR SQ SCH (17:00)
[2020-11-12] VITALS (8 sets, daily range): BP systolic 107–134; BP diastolic 56–73
[2020-11-12] MEDS: INSULIN REGULAR, HUMAN 100 UNIT/1 ML 3ML VIAL SQ SCH ×4 (06:00→18:00)
[2020-11-12] MEDS: INSULIN GLARGINE 100 UNITS/ML VIAL SQ SCH ×2 (09:00→21:00)
[2020-11-12] MEDS: DONEPEZIL HCL 5 MG TAB PO SCH (09:17)
[2020-11-12] MEDS: BALSAM PERU/CASTOR OIL 60 GM OINT...G. TP SCH (09:17)
[2020-11-12] MEDS: ARTIFICIAL TEARS (OPTH) 15 ML BTL OU SCH ×2 (09:17→17:26)
[2020-11-12] MEDS: AMANTADINE HCL 50 MG/5 ML SOLUTION PO SCH ×2 (09:17→17:26)
[2020-11-12] MEDS: PRAMIPEXOLE DIHYDROCHLORIDE 0.25 MG TAB PO SCH ×2 (09:17→17:26)
[2020-11-12] MEDS: FONDAPARINUX SODIUM 7.5 MG/0.6 ML SYR SQ SCH (17:26)
[2020-11-13] VITALS (8 sets, daily range): BP systolic 111–138; BP diastolic 61–86
[2020-11-13] MEDS: INSULIN REGULAR, HUMAN 100 UNIT/1 ML 3ML VIAL SQ SCH ×5 (01:02→22:29)
[2020-11-13] MEDS: BALSAM PERU/CASTOR OIL 60 GM OINT...G. TP SCH (09:50)
[2020-11-13] MEDS: PRAMIPEXOLE DIHYDROCHLORIDE 0.25 MG TAB PO SCH ×2 (09:50→17:30)
[2020-11-13] MEDS: ARTIFICIAL TEARS (OPTH) 15 ML BTL OU SCH ×2 (09:50→17:30)
[2020-11-13] MEDS: DONEPEZIL HCL 5 MG TAB PO SCH (09:50)
[2020-11-13] MEDS: INSULIN GLARGINE 100 UNITS/ML VIAL SQ SCH ×2 (09:50→22:28)
[2020-11-13] MEDS: AMANTADINE HCL 50 MG/5 ML SOLUTION PO SCH ×2 (09:50→17:30)
[2020-11-13] MEDS: FONDAPARINUX SODIUM 7.5 MG/0.6 ML SYR SQ SCH (17:30)
[2020-11-14] VITALS (7 sets, daily range): BP systolic 111–129; BP diastolic 18–74
[2020-11-14] MEDS ORDERED: TRAZODONE HCL 50 MG TAB PO ONE (00:15)
[2020-11-14] MEDS: INSULIN REGULAR, HUMAN 100 UNIT/1 ML 3ML VIAL SQ SCH ×3 (05:46→18:31)
[2020-11-14] MEDS: DONEPEZIL HCL 5 MG TAB PO SCH (09:36)
[2020-11-14] MEDS: AMANTADINE HCL 50 MG/5 ML SOLUTION PO SCH ×2 (09:36→17:25)
[2020-11-14] MEDS: ARTIFICIAL TEARS (OPTH) 15 ML BTL OU SCH ×2 (09:36→17:25)
[2020-11-14] MEDS: PRAMIPEXOLE DIHYDROCHLORIDE 0.25 MG TAB PO SCH ×2 (09:37→17:25)
[2020-11-14] MEDS: BALSAM PERU/CASTOR OIL 60 GM OINT...G. TP SCH (09:37)
[2020-11-14] MEDS: INSULIN GLARGINE 100 UNITS/ML VIAL SQ SCH ×2 (09:40→20:40)
[2020-11-14] MEDS: FONDAPARINUX SODIUM 7.5 MG/0.6 ML SYR SQ SCH (17:25)
[2020-11-15] VITALS (8 sets, daily range): BP systolic 120–130; BP diastolic 72–75
[2020-11-15] MEDS: INSULIN REGULAR, HUMAN 100 UNIT/1 ML 3ML VIAL SQ SCH ×4 (00:23→19:00)
[2020-11-15] MEDS ORDERED: POTASSIUM CHLORIDE 20MEQ/100ML 200 ML IV PRN (01:00)
[2020-11-15] MEDS: PRAMIPEXOLE DIHYDROCHLORIDE 0.25 MG TAB PO SCH ×2 (08:41→18:18)
[2020-11-15] MEDS: BALSAM PERU/CASTOR OIL 60 GM OINT...G. TP SCH (08:41)
[2020-11-15] MEDS: DONEPEZIL HCL 5 MG TAB PO SCH (08:41)
[2020-11-15] MEDS: ARTIFICIAL TEARS (OPTH) 15 ML BTL OU SCH ×2 (08:41→18:18)
[2020-11-15] MEDS: INSULIN GLARGINE 100 UNITS/ML VIAL SQ SCH ×2 (08:43→20:59)
[2020-11-15] MEDS: AMANTADINE HCL 50 MG/5 ML SOLUTION PO SCH ×2 (09:39→18:18)
[2020-11-15] MEDS: FONDAPARINUX SODIUM 7.5 MG/0.6 ML SYR SQ SCH (18:18)
[2020-11-15] MEDS: ACETAMINOPHEN 325 MG/10 ML UDC NG PRN (23:41)
[2020-11-16] VITALS (8 sets, daily range): BP systolic 123–131; BP diastolic 72–84
[2020-11-16] MEDS: INSULIN REGULAR, HUMAN 100 UNIT/1 ML 3ML VIAL SQ SCH ×4 (06:00→18:41)
[2020-11-16] MEDS: INSULIN GLARGINE 100 UNITS/ML VIAL SQ SCH ×2 (09:00→21:21)
[2020-11-16] MEDS: DONEPEZIL HCL 5 MG TAB PO SCH (09:18)
[2020-11-16] MEDS: AMANTADINE HCL 50 MG/5 ML SOLUTION PO SCH ×2 (09:18→17:36)
[2020-11-16] MEDS: PRAMIPEXOLE DIHYDROCHLORIDE 0.25 MG TAB PO SCH ×2 (09:18→17:36)
[2020-11-16] MEDS: ARTIFICIAL TEARS (OPTH) 15 ML BTL OU SCH ×2 (09:19→17:36)
[2020-11-16] MEDS: BALSAM PERU/CASTOR OIL 60 GM OINT...G. TP SCH (09:19)
[2020-11-16] MEDS ORDERED: THIAMINE HCL INJ 100 MG/ML 2ML VIAL IV ONE (15:45)
[2020-11-16] MEDS ORDERED: CYANOCOBALAMIN INJ 1,000 MCG/ML VIAL IM ONE (15:45)
[2020-11-16] MEDS ORDERED: MAGNESIUM HYDROXIDE 30 ML UDC PO ONE (16:00)
[2020-11-16] MEDS: FONDAPARINUX SODIUM 7.5 MG/0.6 ML SYR SQ SCH (17:36)
[2020-11-17] VITALS (8 sets, daily range): BP systolic 105–149; BP diastolic 61–81
[2020-11-17] MEDS: INSULIN REGULAR, HUMAN 100 UNIT/1 ML 3ML VIAL SQ SCH ×4 (06:00→18:00)
[2020-11-17] MEDS: ARTIFICIAL TEARS (OPTH) 15 ML BTL OU SCH ×2 (09:04→17:24)
[2020-11-17] MEDS: AMANTADINE HCL 50 MG/5 ML SOLUTION PO SCH ×2 (09:05→17:24)
[2020-11-17] MEDS: BALSAM PERU/CASTOR OIL 60 GM OINT...G. TP SCH (09:05)
[2020-11-17] MEDS: PRAMIPEXOLE DIHYDROCHLORIDE 0.25 MG TAB PO SCH ×2 (09:05→17:24)
[2020-11-17] MEDS: INSULIN GLARGINE 100 UNITS/ML VIAL SQ SCH ×2 (09:30→21:14)
[2020-11-17] MEDS: PYRIDOXINE HCL 50 MG TAB PO SCH (17:00)
[2020-11-17] MEDS: FONDAPARINUX SODIUM 7.5 MG/0.6 ML SYR SQ SCH (17:24)
[2020-11-18] VITALS (7 sets, daily range): BP systolic 113–137; BP diastolic 71–77
[2020-11-18] MEDS: INSULIN REGULAR, HUMAN 100 UNIT/1 ML 3ML VIAL SQ SCH ×4 (01:00→17:33)
[2020-11-18] MEDS: PRAMIPEXOLE DIHYDROCHLORIDE 0.25 MG TAB PO SCH (09:02)
[2020-11-18] MEDS: BALSAM PERU/CASTOR OIL 60 GM OINT...G. TP SCH (09:02)
[2020-11-18] MEDS: AMANTADINE HCL 50 MG/5 ML SOLUTION PO SCH (09:02)
[2020-11-18] MEDS: INSULIN GLARGINE 100 UNITS/ML VIAL SQ SCH ×2 (09:02→21:00)
[2020-11-18] MEDS: PYRIDOXINE HCL 50 MG TAB PO SCH (09:02)
[2020-11-18] MEDS: FONDAPARINUX SODIUM 7.5 MG/0.6 ML SYR SQ SCH (17:32)
[2020-11-19] VITALS (8 sets, daily range): BP systolic 94–137; BP diastolic 62–82
[2020-11-19] MEDS: INSULIN REGULAR, HUMAN 100 UNIT/1 ML 3ML VIAL SQ SCH ×4 (06:00→18:00)
[2020-11-19] MEDS: BALSAM PERU/CASTOR OIL 60 GM OINT...G. TP SCH (09:30)
[2020-11-19] MEDS: PYRIDOXINE HCL 50 MG TAB PO SCH (09:30)
[2020-11-19] MEDS: INSULIN GLARGINE 100 UNITS/ML VIAL SQ SCH ×2 (09:56→21:00)
[2020-11-19] MEDS: FONDAPARINUX SODIUM 7.5 MG/0.6 ML SYR SQ SCH (18:00)
[2020-11-19] MEDS: TRAZODONE HCL 50 MG TAB PO PRN (22:15)
[2020-11-20] VITALS (8 sets, daily range): BP systolic 109–134; BP diastolic 72–84
[2020-11-20 05:07] LABS: BASOPHILS # (AUTO) 0.1 (0.0-0.1); BASOPHILS % 0.4 % (0.0-1.0); EOSINOPHILS # (AUTO) 0.4 (0.0-0.4); EOSINOPHILS % 2.6 % (0.0-6.0); HEMATOCRIT 38.8 % (34.2-44.1); HEMOGLOBIN 11.1 g/dL (12.0-16.0); LYMPHOCYTES # (AUTO) 2.4 (1.0-3.2); LYMPHOCYTES % 17.7 % (18.0-39.1); MEAN CORPUSCULAR HEMOGLOBIN 24.3 pg (28-32); MEAN CORPUSCULAR HGB CONC 28.6 g/dL (31-35); MEAN CORPUSCULAR VOLUME 85.1 fL (81-99); MONOCYTES # (AUTO) 0.8 (0.2-0.8); MONOCYTES % 6.3 % (4.4-11.3); NEUTROPHILS # (AUTO) 9.7 (2.1-6.9); NEUTROPHILS % 72.6 % (38.7-80.0); PLATELET COUNT 339 x10e3/uL (140-360); RED BLOOD COUNT 4.56 x10e6/uL (3.6-5.1); RED CELL DISTRIBUTION WIDTH 18.5 % (11.7-14.4)
[2020-11-20 05:36] LABS: ALANINE AMINOTRANSFERASE 18 IU/L (0-55); ALBUMIN 2.4 g/dL (3.5-5.0); ALBUMIN/GLOBULIN RATIO 0.6 (0.8-2.0); ALKALINE PHOSPHATASE 118 IU/L (40-150); ANION GAP 14.2 mmol/L (8-16); BLOOD UREA NITROGEN 17 mg/dL (7-26); BUN/CREATININE RATIO 43 (6-25); CALCIUM 8.6 mg/dL (8.4-10.2); CARBON DIOXIDE 36 mmol/L (22-29); CHLORIDE 92 mmol/L (98-107); EST GLOMERULAR FILTRATION RATE > 60 ML/MIN (60-); GLUCOSE 216 mg/dL (74-118); POTASSIUM 4.2 mmol/L (3.5-5.1); SODIUM 138 mmol/L (136-145)
[2020-11-20] MEDS: INSULIN REGULAR, HUMAN 100 UNIT/1 ML 3ML VIAL SQ SCH ×4 (05:42→16:36)
[2020-11-20 06:10] LABS: EOSINOPHILS % (MANUAL) 1 % (0-7); LYMPHOCYTES % (MANUAL) 23 % (19-48); METAMYELOCYTES % (MANUAL) 1 % (0-0); MONOCYTES % (MANUAL) 4 % (3.4-9.0); NEUTROPHILS % (MANUAL) 65 % (40-74)
[2020-11-20 06:12] LABS: ANISOCYTOSIS SLIG; PLATELET ESTIMATE ADEQUATE; PLATELET MORPHOLOGY COMMENT NORMAL; POIKILOCYTOSIS SLIGHT; RBC MORPHOLOGY COMMENT NORMAL
[2020-11-20 06:13] LABS: HYPOCHROMASIA SLIG; MICROCYTOSIS SLIGHT
[2020-11-20] MEDS: PYRIDOXINE HCL 50 MG TAB PO SCH (09:39)
[2020-11-20] MEDS: INSULIN GLARGINE 100 UNITS/ML VIAL SQ SCH ×2 (09:39→20:51)
[2020-11-20] MEDS: BALSAM PERU/CASTOR OIL 60 GM OINT...G. TP SCH (09:39)
[2020-11-20] MEDS: FONDAPARINUX SODIUM 7.5 MG/0.6 ML SYR SQ SCH (16:36)
[2020-11-21] VITALS (7 sets, daily range): BP systolic 116–146; BP diastolic 63–81
[2020-11-21] MEDS: INSULIN REGULAR, HUMAN 100 UNIT/1 ML 3ML VIAL SQ SCH ×5 (06:46→23:44)
[2020-11-21] MEDS: BALSAM PERU/CASTOR OIL 60 GM OINT...G. TP SCH (10:14)
[2020-11-21] MEDS: PYRIDOXINE HCL 50 MG TAB PO SCH (10:14)
[2020-11-21] MEDS: INSULIN GLARGINE 100 UNITS/ML VIAL SQ SCH ×2 (10:18→21:25)
[2020-11-21] MEDS ORDERED: CEFTRIAXONE SOD 1 GM/50 ML BAG IV SCH (11:30)
[2020-11-21] MEDS: CEFTRIAXONE SOD 1 GM in SODIUM CHLORIDE 0.9% 50ML 50 ML IV SCH (13:46)
[2020-11-21] MEDS: FONDAPARINUX SODIUM 7.5 MG/0.6 ML SYR SQ SCH (17:59)
[2020-11-21] MEDS ORDERED: ZOLPIDEM TARTRATE 5 MG TAB PO PRN (21:00)
[2020-11-22] VITALS (8 sets, daily range): BP systolic 104–137; BP diastolic 64–88
[2020-11-22] MEDS: INSULIN REGULAR, HUMAN 100 UNIT/1 ML 3ML VIAL SQ SCH ×3 (05:51→15:52)
[2020-11-22] MEDS: INSULIN GLARGINE 100 UNITS/ML VIAL SQ SCH ×2 (08:43→19:40)
[2020-11-22] MEDS: BALSAM PERU/CASTOR OIL 60 GM OINT...G. TP SCH (08:46)
[2020-11-22] MEDS: APIXABAN 5 MG TABLET PO SCH ×2 (08:46→16:05)
[2020-11-22] MEDS: PYRIDOXINE HCL 50 MG TAB PO SCH (08:46)
[2020-11-22] MEDS: MULTIVITAMINS/MINERALS TAB PO SCH (11:34)
[2020-11-22] MEDS: CEFTRIAXONE SOD 1 GM in SODIUM CHLORIDE 0.9% 50ML 50 ML IV SCH (11:34)
[2020-11-22] MEDS: DEXTROSE 50% SYRINGE 50 ML IV PRN ×2 (11:48→15:52)
[2020-11-22] MEDS ORDERED: FUROSEMIDE INJ 10 MG/ML 2 ML VIAL IV ONE (14:00)
[2020-11-22] MEDS: DEXTROSE 5% 1,000 ML IV SCH (16:37)
[2020-11-22] MEDS: DOCUSATE SODIUM LIQD 100 MG/10 ML UDC PEG SCH (16:38)
[2020-11-22] MEDS ORDERED: DOCUSATE SODIUM 100 MG CAP PO SCH (17:00)
[2020-11-23] VITALS (8 sets, daily range): BP systolic 111–125; BP diastolic 73–92
[2020-11-23 05:12] LABS: ANION GAP 12.8 mmol/L (8-16); BLOOD UREA NITROGEN 16 mg/dL (7-26); BUN/CREATININE RATIO 47 (6-25); CALCIUM 8.8 mg/dL (8.4-10.2); CARBON DIOXIDE 38 mmol/L (22-29); CHLORIDE 90 mmol/L (98-107); CREATININE, SERUM 0.34 mg/dL (0.57-1.11); EST GLOMERULAR FILTRATION RATE > 60 ML/MIN (60-); GLUCOSE 70 mg/dL (74-118); MAGNESIUM 1.6 MG/DL (1.3-2.1); POTASSIUM 3.8 mmol/L (3.5-5.1); SODIUM 137 mmol/L (136-145)
[2020-11-23] MEDS: INSULIN REGULAR, HUMAN 100 UNIT/1 ML 3ML VIAL SQ SCH ×4 (06:00→18:00)
[2020-11-23] MEDS: INSULIN GLARGINE 100 UNITS/ML VIAL SQ SCH ×2 (09:00→19:59)
[2020-11-23] MEDS: DOCUSATE SODIUM LIQD 100 MG/10 ML UDC PEG SCH ×2 (09:14→17:21)
[2020-11-23] MEDS: APIXABAN 5 MG TABLET PO SCH ×2 (09:14→17:21)
[2020-11-23] MEDS: MULTIVITAMINS/MINERALS TAB PO SCH (09:14)
[2020-11-23] MEDS: BALSAM PERU/CASTOR OIL 60 GM OINT...G. TP SCH (09:14)
[2020-11-23] MEDS: PYRIDOXINE HCL 50 MG TAB PO SCH (09:14)
[2020-11-23] MEDS: CEFTRIAXONE SOD 1 GM in SODIUM CHLORIDE 0.9% 50ML 50 ML IV SCH (11:41)
[2020-11-23] MEDS: DEXTROSE 5% 1,000 ML IV SCH (11:41)
[2020-11-23] MEDS ORDERED: FUROSEMIDE INJ 10 MG/ML 2 ML VIAL IV NR (13:00)
[2020-11-23] MEDS ORDERED: DEXTROSE 5% 1,000 ML IV PRN (13:00)
[2020-11-24] VITALS (8 sets, daily range): BP systolic 110–128; BP diastolic 73–81
[2020-11-24] MEDS: ACETAMINOPHEN 325 MG/10 ML UDC NG PRN (00:57)
[2020-11-24 05:39] LABS: ANION GAP 13.2 mmol/L (8-16); BLOOD UREA NITROGEN 13 mg/dL (7-26); BUN/CREATININE RATIO 34 (6-25); CALCIUM 8.6 mg/dL (8.4-10.2); CARBON DIOXIDE 36 mmol/L (22-29); CHLORIDE 87 mmol/L (98-107); CREATININE, SERUM 0.38 mg/dL (0.57-1.11); EST GLOMERULAR FILTRATION RATE > 60 ML/MIN (60-); GLUCOSE 85 mg/dL (74-118); MAGNESIUM 1.6 MG/DL (1.3-2.1); POTASSIUM 3.2 mmol/L (3.5-5.1); SODIUM 133 mmol/L (136-145)
[2020-11-24] MEDS: INSULIN REGULAR, HUMAN 100 UNIT/1 ML 3ML VIAL SQ SCH ×4 (05:43→18:00)
[2020-11-24] MEDS: INSULIN GLARGINE 100 UNITS/ML VIAL SQ SCH ×2 (08:53→20:30)
[2020-11-24] MEDS: BALSAM PERU/CASTOR OIL 60 GM OINT...G. TP SCH (08:53)
[2020-11-24] MEDS: DOCUSATE SODIUM LIQD 100 MG/10 ML UDC PEG SCH ×2 (09:15→17:45)
[2020-11-24] MEDS: PYRIDOXINE HCL 50 MG TAB PO SCH (09:15)
[2020-11-24] MEDS: APIXABAN 5 MG TABLET PO SCH ×2 (09:15→17:45)
[2020-11-24] MEDS: MULTIVITAMINS/MINERALS TAB PO SCH (09:15)
[2020-11-24] MEDS: CEFTRIAXONE SOD 1 GM in SODIUM CHLORIDE 0.9% 50ML 50 ML IV SCH (11:42)
[2020-11-24] MEDS: DEXTROSE 50% SYRINGE 50 ML IV PRN (18:26)
[2020-11-25] VITALS (7 sets, daily range): BP systolic 113–141; BP diastolic 65–85
[2020-11-25] MEDS: INSULIN REGULAR, HUMAN 100 UNIT/1 ML 3ML VIAL SQ SCH ×4 (05:43→18:52)
[2020-11-25] MEDS: INSULIN GLARGINE 100 UNITS/ML VIAL SQ SCH ×2 (09:00→21:00)
[2020-11-25] MEDS: PYRIDOXINE HCL 50 MG TAB PO SCH (10:32)
[2020-11-25] MEDS: MULTIVITAMINS/MINERALS TAB PO SCH (10:32)
[2020-11-25] MEDS: DOCUSATE SODIUM LIQD 100 MG/10 ML UDC PEG SCH ×2 (10:35→17:16)
[2020-11-25] MEDS: BALSAM PERU/CASTOR OIL 60 GM OINT...G. TP SCH (10:35)
[2020-11-25] MEDS: APIXABAN 5 MG TABLET PO SCH ×2 (10:35→17:16)
[2020-11-25] MEDS: CEFTRIAXONE SOD 1 GM in SODIUM CHLORIDE 0.9% 50ML 50 ML IV SCH (12:29)
[2020-11-25] MEDS ORDERED: NYSTATIN 15 GM POWDER UD BTL TOP PRN (17:45)
[2020-11-25] MEDS: FLUCONAZOLE 100 MG/NS 50 ML 50 ML IV SCH (18:52)
[2020-11-25] MEDS: CLOTRIMAZOLE 1% CR 15 GM TOP SCH (20:00)
[2020-11-26] VITALS (8 sets, daily range): BP systolic 105–133; BP diastolic 51–81
[2020-11-26] MEDS: INSULIN GLARGINE 100 UNITS/ML VIAL SQ SCH ×2 (00:30→09:00)
[2020-11-26] MEDS: INSULIN REGULAR, HUMAN 100 UNIT/1 ML 3ML VIAL SQ SCH ×3 (06:02→12:00)
[2020-11-26] MEDS: APIXABAN 5 MG TABLET PO SCH ×2 (09:00→17:07)
[2020-11-26] MEDS: DOCUSATE SODIUM LIQD 100 MG/10 ML UDC PEG SCH ×2 (09:00→17:07)
[2020-11-26] MEDS: PYRIDOXINE HCL 50 MG TAB PO SCH (09:00)
[2020-11-26] MEDS: MULTIVITAMINS/MINERALS TAB PO SCH (09:00)
[2020-11-26] MEDS: CLOTRIMAZOLE 1% CR 15 GM TOP SCH ×2 (09:00→17:07)
[2020-11-26] MEDS: BALSAM PERU/CASTOR OIL 60 GM OINT...G. TP SCH (12:02)
[2020-11-26] MEDS: CEFTRIAXONE SOD 1 GM in SODIUM CHLORIDE 0.9% 50ML 50 ML IV SCH (12:03)
[2020-11-26] MEDS: FLUCONAZOLE 100 MG/NS 50 ML 50 ML IV SCH (18:30)
[2020-11-27] VITALS (8 sets, daily range): BP systolic 123–135; BP diastolic 67–86
[2020-11-27] MEDS: INSULIN REGULAR, HUMAN 100 UNIT/1 ML 3ML VIAL SQ SCH ×4 (00:35→18:00)
[2020-11-27] MEDS: INSULIN GLARGINE 100 UNITS/ML VIAL SQ SCH ×2 (09:00→20:24)
[2020-11-27] MEDS: MULTIVITAMINS/MINERALS TAB PO SCH (09:29)
[2020-11-27] MEDS: APIXABAN 5 MG TABLET PO SCH ×2 (09:29→17:28)
[2020-11-27] MEDS: DOCUSATE SODIUM LIQD 100 MG/10 ML UDC PEG SCH ×2 (09:29→17:28)
[2020-11-27] MEDS: PYRIDOXINE HCL 50 MG TAB PO SCH (09:29)
[2020-11-27] MEDS: CLOTRIMAZOLE 1% CR 15 GM TOP SCH ×2 (09:40→16:53)
[2020-11-27] MEDS: BALSAM PERU/CASTOR OIL 60 GM OINT...G. TP SCH (09:40)
[2020-11-27] MEDS: CEFTRIAXONE SOD 1 GM in SODIUM CHLORIDE 0.9% 50ML 50 ML IV SCH (12:38)
[2020-11-27] MEDS: FLUCONAZOLE 100 MG/NS 50 ML 50 ML IV SCH (17:28)
[2020-11-28] VITALS (8 sets, daily range): BP systolic 114–140; BP diastolic 76–90
[2020-11-28] MEDS: INSULIN REGULAR, HUMAN 100 UNIT/1 ML 3ML VIAL SQ SCH ×5 (05:33→23:56)
[2020-11-28] MEDS: DOCUSATE SODIUM LIQD 100 MG/10 ML UDC PEG SCH ×2 (09:38→17:13)
[2020-11-28] MEDS: CLOTRIMAZOLE 1% CR 15 GM TOP SCH ×2 (09:38→17:14)
[2020-11-28] MEDS: APIXABAN 5 MG TABLET PO SCH ×2 (09:38→17:13)
[2020-11-28] MEDS: PYRIDOXINE HCL 50 MG TAB PO SCH (09:38)
[2020-11-28] MEDS: MULTIVITAMINS/MINERALS TAB PO SCH (09:38)
[2020-11-28] MEDS: INSULIN GLARGINE 100 UNITS/ML VIAL SQ SCH ×2 (09:56→21:00)
[2020-11-28] MEDS ORDERED: METHYLPREDNISOLONE SOD SUCC 40 MG/ML VIAL 1ML IV ONE (12:15)
[2020-11-28] MEDS: CEFTRIAXONE SOD 1 GM in SODIUM CHLORIDE 0.9% 50ML 50 ML IV SCH (12:43)
[2020-11-29] VITALS (8 sets, daily range): BP systolic 124–143; BP diastolic 67–91
[2020-11-29 05:19] LABS: BASOPHILS % 0.1 % (0.0-1.0); HEMOGLOBIN 10.8 g/dL (12.0-16.0); LYMPHOCYTES # (AUTO) 1.4 (1.0-3.2); LYMPHOCYTES % 10.4 % (18.0-39.1); MEAN CORPUSCULAR HEMOGLOBIN 24.5 pg (28-32); MEAN CORPUSCULAR VOLUME 81.6 fL (81-99); MONOCYTES # (AUTO) 0.7 (0.2-0.8); NEUTROPHILS # (AUTO) 11.2 (2.1-6.9); NEUTROPHILS % 84.1 % (38.7-80.0); PLATELET COUNT 363 x10e3/uL (140-360); RED BLOOD COUNT 4.41 x10e6/uL (3.6-5.1); RED CELL DISTRIBUTION WIDTH 17.5 % (11.7-14.4)
[2020-11-29] MEDS: INSULIN REGULAR, HUMAN 100 UNIT/1 ML 3ML VIAL SQ SCH ×4 (05:48→23:43)
[2020-11-29 05:57] LABS: ANION GAP 15.2 mmol/L (8-16); BLOOD UREA NITROGEN 21 mg/dL (7-26); BUN/CREATININE RATIO 54 (6-25); CARBON DIOXIDE 35 mmol/L (22-29); CHLORIDE 89 mmol/L (98-107); CREATININE, SERUM 0.39 mg/dL (0.57-1.11); EST GLOMERULAR FILTRATION RATE > 60 ML/MIN (60-); GLUCOSE 204 mg/dL (74-118); POTASSIUM 4.2 mmol/L (3.5-5.1); SODIUM 135 mmol/L (136-145)
[2020-11-29] MEDS: MULTIVITAMINS/MINERALS TAB PO SCH (09:39)
[2020-11-29] MEDS: PYRIDOXINE HCL 50 MG TAB PO SCH (09:39)
[2020-11-29] MEDS: APIXABAN 5 MG TABLET PO SCH ×2 (09:39→17:26)
[2020-11-29] MEDS: DOCUSATE SODIUM LIQD 100 MG/10 ML UDC PEG SCH ×2 (09:39→17:26)
[2020-11-29] MEDS: CLOTRIMAZOLE 1% CR 15 GM TOP SCH ×2 (09:40→17:26)
[2020-11-29] MEDS: INSULIN GLARGINE 100 UNITS/ML VIAL SQ SCH ×2 (09:42→21:00)
[2020-11-29] MEDS: CEFTRIAXONE SOD 1 GM in SODIUM CHLORIDE 0.9% 50ML 50 ML IV SCH (12:27)
[2020-11-29] MEDS: ALPRAZOLAM 0.25 MG TAB PEG PRN (12:48)
[2020-11-30] VITALS (8 sets, daily range): BP systolic 120–138; BP diastolic 79–88
[2020-11-30] MEDS: INSULIN REGULAR, HUMAN 100 UNIT/1 ML 3ML VIAL SQ SCH ×3 (06:00→18:21)
[2020-11-30] MEDS: INSULIN GLARGINE 100 UNITS/ML VIAL SQ SCH ×2 (09:00→21:25)
[2020-11-30] MEDS: PYRIDOXINE HCL 50 MG TAB PO SCH (09:04)
[2020-11-30] MEDS: DOCUSATE SODIUM LIQD 100 MG/10 ML UDC PEG SCH ×2 (09:04→17:40)
[2020-11-30] MEDS: APIXABAN 5 MG TABLET PO SCH ×2 (09:04→17:40)
[2020-11-30] MEDS: MULTIVITAMINS/MINERALS TAB PO SCH (09:04)
[2020-11-30] MEDS: CLOTRIMAZOLE 1% CR 15 GM TOP SCH ×2 (09:20→17:41)
[2020-11-30] MEDS: CEFTRIAXONE SOD 1 GM in SODIUM CHLORIDE 0.9% 50ML 50 ML IV SCH (13:00)
[2020-12-01] VITALS (9 sets, daily range): BP systolic 119–137; BP diastolic 75–96
[2020-12-01] MEDS: INSULIN REGULAR, HUMAN 100 UNIT/1 ML 3ML VIAL SQ SCH ×4 (05:38→18:32)
[2020-12-01] MEDS: MULTIVITAMINS/MINERALS TAB PO SCH ×2 (09:00)
[2020-12-01] MEDS: APIXABAN 5 MG TABLET PO SCH ×2 (09:00→17:00)
[2020-12-01] MEDS: CLOTRIMAZOLE 1% CR 15 GM TOP SCH ×2 (09:00→17:00)
[2020-12-01] MEDS: PYRIDOXINE HCL 50 MG TAB PO SCH (09:00)
[2020-12-01] MEDS: DOCUSATE SODIUM LIQD 100 MG/10 ML UDC PEG SCH ×2 (09:00→17:00)
[2020-12-01] MEDS: INSULIN GLARGINE 100 UNITS/ML VIAL SQ SCH ×2 (09:00→20:52)
[2020-12-01] MEDS: ACETAMINOPHEN 325 MG/10 ML UDC NG PRN ×2 (10:11→19:25)
[2020-12-02] VITALS (8 sets, daily range): BP systolic 121–142; BP diastolic 75–90
[2020-12-02] MEDS: INSULIN REGULAR, HUMAN 100 UNIT/1 ML 3ML VIAL SQ SCH ×4 (05:29→18:00)
[2020-12-02] MEDS: MULTIVITAMINS/MINERALS TAB PO SCH ×2 (09:00)
[2020-12-02] MEDS: INSULIN GLARGINE 100 UNITS/ML VIAL SQ SCH ×2 (09:00→21:00)
[2020-12-02] MEDS: CLOTRIMAZOLE 1% CR 15 GM TOP SCH ×2 (09:00→17:00)
[2020-12-02] MEDS: PYRIDOXINE HCL 50 MG TAB PO SCH (09:00)
[2020-12-02] MEDS: DOCUSATE SODIUM LIQD 100 MG/10 ML UDC PEG SCH ×2 (09:00→17:00)
[2020-12-02] MEDS: APIXABAN 5 MG TABLET PO SCH ×2 (09:00→17:00)
[2020-12-02] MEDS: ALPRAZOLAM 0.25 MG TAB PEG PRN (18:12)
[2020-12-02] MEDS: ACETAMINOPHEN 325 MG/10 ML UDC NG PRN (19:33)
[2020-12-02] MEDS: GUAIFENESIN/CODEINE 10 ML CUP PO PRN (19:33)
[2020-12-02] MEDS: TRAZODONE HCL 50 MG TAB PO PRN (23:59)
[2020-12-03] VITALS (8 sets, daily range): BP systolic 103–130; BP diastolic 64–84
[2020-12-03] MEDS: INSULIN REGULAR, HUMAN 100 UNIT/1 ML 3ML VIAL SQ SCH ×4 (05:47→17:51)
[2020-12-03] MEDS: MULTIVITAMINS/MINERALS TAB PO SCH ×2 (08:50→08:52)
[2020-12-03] MEDS: APIXABAN 5 MG TABLET PO SCH ×2 (08:50→17:56)
[2020-12-03] MEDS: DOCUSATE SODIUM LIQD 100 MG/10 ML UDC PEG SCH ×2 (08:50→17:56)
[2020-12-03] MEDS: PYRIDOXINE HCL 50 MG TAB PO SCH (08:52)
[2020-12-03] MEDS: INSULIN GLARGINE 100 UNITS/ML VIAL SQ SCH ×2 (09:10→21:00)
[2020-12-03] MEDS: ACETAMINOPHEN 325 MG/10 ML UDC NG PRN ×2 (13:24→21:16)
[2020-12-03] MEDS: TRAZODONE HCL 50 MG TAB PO PRN (21:16)
[2020-12-03] MEDS: GUAIFENESIN/CODEINE 10 ML CUP PO PRN (21:16)
[2020-12-04] VITALS (8 sets, daily range): BP systolic 120–150; BP diastolic 69–90
[2020-12-04] MEDS: INSULIN REGULAR, HUMAN 100 UNIT/1 ML 3ML VIAL SQ SCH ×4 (05:56→18:00)
[2020-12-04] MEDS: PYRIDOXINE HCL 50 MG TAB PO SCH (09:00)
[2020-12-04] MEDS: MULTIVITAMINS/MINERALS TAB PO SCH (09:00)
[2020-12-04] MEDS: APIXABAN 5 MG TABLET PO SCH ×2 (09:00→17:00)
[2020-12-04] MEDS: DOCUSATE SODIUM LIQD 100 MG/10 ML UDC PEG SCH ×2 (09:00→17:00)
[2020-12-04] MEDS: INSULIN GLARGINE 100 UNITS/ML VIAL SQ SCH ×2 (09:00→21:00)
[2020-12-04] MEDS: LIDOCAINE 4% PATCH TP SCH (12:00)
[2020-12-04] MEDS: ACETAMINOPHEN 325 MG/10 ML UDC NG PRN ×2 (12:21→18:24)
[2020-12-04] MEDS ORDERED: ONDANSETRON HCL INJ 2MG/ML 2ML 2 MG/ML VIAL IV PRN (18:30)
[2020-12-04] MEDS: TRAMADOL HCL 50 MG TAB PO PRN (21:18)
[2020-12-04] MEDS: TRAZODONE HCL 50 MG TAB PO PRN (21:18)
[2020-12-04] MEDS ORDERED: PROMETHAZINE 12.5MG/ NACL 0.9% 12.5 MG/50 ML BAG IV PRN (23:45)
[2020-12-05] VITALS (8 sets, daily range): BP systolic 131–142; BP diastolic 84–94
[2020-12-05] MEDS: INSULIN GLARGINE 100 UNITS/ML VIAL SQ SCH ×2 (00:15→09:00)
[2020-12-05] MEDS ORDERED: SODIUM CHLORIDE 0.9% 250ML 250 ML ONE (00:23)
[2020-12-05] MEDS: ACETAMINOPHEN 325 MG/10 ML UDC NG PRN (02:09)
[2020-12-05] MEDS: GUAIFENESIN/CODEINE 10 ML CUP PO PRN (03:30)
[2020-12-05] MEDS: INSULIN REGULAR, HUMAN 100 UNIT/1 ML 3ML VIAL SQ SCH ×4 (06:00→18:28)
[2020-12-05] MEDS: APIXABAN 5 MG TABLET PO SCH ×2 (09:28→17:33)
[2020-12-05] MEDS: MULTIVITAMINS 5 ML LIQUID GT SCH (09:28)
[2020-12-05] MEDS: DOCUSATE SODIUM LIQD 100 MG/10 ML UDC PEG SCH ×2 (09:28→17:33)
[2020-12-05] MEDS: PYRIDOXINE HCL 50 MG TAB PO SCH (09:28)
[2020-12-05] MEDS: LIDOCAINE 4% PATCH TP SCH (09:29)
[2020-12-05] MEDS: TRAMADOL HCL 50 MG TAB PO PRN ×2 (09:49→22:00)
[2020-12-05] MEDS ORDERED: CITRATE OF MAGNESIA 300ML BOTTLE PO ONE (12:00)
[2020-12-05 12:42] LABS: BASOPHILS # (AUTO) 0.1 (0.0-0.1); BASOPHILS % 0.6 % (0.0-1.0); EOSINOPHILS % 0.2 % (0.0-6.0); HEMATOCRIT 37.9 % (34.2-44.1); HEMOGLOBIN 11.2 g/dL (12.0-16.0); LYMPHOCYTES # (AUTO) 1.1 (1.0-3.2); LYMPHOCYTES % 6.6 % (18.0-39.1); MEAN CORPUSCULAR HEMOGLOBIN 24.5 pg (28-32); MEAN CORPUSCULAR HGB CONC 29.6 g/dL (31-35); MEAN CORPUSCULAR VOLUME 82.9 fL (81-99); MONOCYTES # (AUTO) 0.5 (0.2-0.8); MONOCYTES % 2.9 % (4.4-11.3); NEUTROPHILS # (AUTO) 15.1 (2.1-6.9); NEUTROPHILS % 89.1 % (38.7-80.0); PLATELET COUNT 500 x10e3/uL (140-360); RED BLOOD COUNT 4.57 x10e6/uL (3.6-5.1); RED CELL DISTRIBUTION WIDTH 17.3 % (11.7-14.4)
[2020-12-05 13:05] LABS: ALANINE AMINOTRANSFERASE 15 IU/L (0-55); ALBUMIN 2.1 g/dL (3.5-5.0); ALBUMIN/GLOBULIN RATIO 0.5 (0.8-2.0); ALKALINE PHOSPHATASE 193 IU/L (40-150); ANION GAP 14.4 mmol/L (8-16); BLOOD UREA NITROGEN 37 mg/dL (7-26); BUN/CREATININE RATIO 77 (6-25); CALCIUM 9.5 mg/dL (8.4-10.2); CARBON DIOXIDE 38 mmol/L (22-29); CHLORIDE 82 mmol/L (98-107); CREATININE, SERUM 0.48 mg/dL (0.57-1.11); EST GLOMERULAR FILTRATION RATE > 60 ML/MIN (60-); GLUCOSE 264 mg/dL (74-118); SODIUM 129 mmol/L (136-145)
[2020-12-05 13:14] LABS: POTASSIUM 5.4 mmol/L (3.5-5.1)
[2020-12-05] MEDS: ALPRAZOLAM 0.25 MG TAB PO PRN ×2 (15:27→22:55)
[2020-12-05] MEDS ORDERED: SOD POLYSTYRENE SULFONATE SUSP 15 GM/60 ML BTL PO ONE (18:00)
[2020-12-05] MEDS: ONDANSETRON HCL 4 MG ORAL DISINTEGRATING TAB PO PRN (22:15)
[2020-12-06] VITALS (8 sets, daily range): BP systolic 116–142; BP diastolic 67–91
[2020-12-06] MEDS: INSULIN REGULAR, HUMAN 100 UNIT/1 ML 3ML VIAL SQ SCH ×4 (00:15→18:00)
[2020-12-06 07:07] LABS: BASOPHILS % 0.2 % (0.0-1.0); EOSINOPHILS % 0.1 % (0.0-6.0); HEMATOCRIT 36.7 % (34.2-44.1); HEMOGLOBIN 10.8 g/dL (12.0-16.0); LYMPHOCYTES # (AUTO) 1.7 (1.0-3.2); LYMPHOCYTES % 9.9 % (18.0-39.1); MEAN CORPUSCULAR HEMOGLOBIN 24.2 pg (28-32); MEAN CORPUSCULAR HGB CONC 29.4 g/dL (31-35); MEAN CORPUSCULAR VOLUME 82.1 fL (81-99); MONOCYTES # (AUTO) 0.9 (0.2-0.8); MONOCYTES % 5.1 % (4.4-11.3); NEUTROPHILS % 83.9 % (38.7-80.0); PLATELET COUNT 478 x10e3/uL (140-360); RED BLOOD COUNT 4.47 x10e6/uL (3.6-5.1); RED CELL DISTRIBUTION WIDTH 16.9 % (11.7-14.4)
[2020-12-06 07:31] LABS: ANION GAP 14.8 mmol/L (8-16); BLOOD UREA NITROGEN 45 mg/dL (7-26); BUN/CREATININE RATIO 94 (6-25); CALCIUM 9.2 mg/dL (8.4-10.2); CHLORIDE 83 mmol/L (98-107); CREATININE, SERUM 0.48 mg/dL (0.57-1.11); EST GLOMERULAR FILTRATION RATE > 60 ML/MIN (60-); GLUCOSE 136 mg/dL (74-118); POTASSIUM 4.8 mmol/L (3.5-5.1); SODIUM 134 mmol/L (136-145)
[2020-12-06 07:36] LABS: CARBON DIOXIDE 41 mmol/L (22-29)
[2020-12-06] MEDS: INSULIN GLARGINE 100 UNITS/ML VIAL SQ SCH ×2 (09:00→21:00)
[2020-12-06] MEDS: MULTIVITAMINS 5 ML LIQUID GT SCH (10:00)
[2020-12-06] MEDS: APIXABAN 5 MG TABLET PO SCH ×2 (10:00→17:08)
[2020-12-06] MEDS: PYRIDOXINE HCL 50 MG TAB PO SCH (10:00)
[2020-12-06] MEDS: LIDOCAINE 4% PATCH TP SCH (10:00)
[2020-12-06] MEDS: DOCUSATE SODIUM LIQD 100 MG/10 ML UDC PEG SCH ×2 (10:00→17:08)
[2020-12-06] MEDS ORDERED: IOPAMIDOL 370 MG/ML 200 ML INFUS..BTL INJ ONE (10:44)
[2020-12-06] MEDS: ALPRAZOLAM 0.25 MG TAB PO PRN ×2 (11:43→12:30)
[2020-12-06] MEDS: ONDANSETRON HCL 4 MG ORAL DISINTEGRATING TAB PO PRN ×2 (12:30→18:30)
[2020-12-06] MEDS ORDERED: ALPRAZOLAM 0.5 MG TAB PO PRN (13:00)
[2020-12-06] MEDS ORDERED: SODIUM CHLORIDE 0.9% 1000ML 1,000 ML IV ONE (13:00)
[2020-12-06 13:20] LABS: ALBUMIN 2.2 g/dL (3.5-5.0); BILIRUBIN,DIRECT 0.1 mg/dL (0.0-0.5)
[2020-12-06 14:43] LABS: INR 1.21
[2020-12-06] MEDS ORDERED: ALBUMIN 25% 12.5GM 50ML 0 ML IV ONE (15:15)
[2020-12-06] MEDS ORDERED: SODIUM CHLORIDE 0.9% 1000ML 1,000 ML ONE (17:03)
[2020-12-06 20:04] LABS: BODY FLUID COLOR YELLOW; BODY FLUID TYPE PERITONEAL
[2020-12-06 20:05] LABS: BODY FLUID APPEARANCE SL.CLOUDY
[2020-12-06 20:06] LABS: WBC,BODY FLUID 695 cells/uL
[2020-12-06 20:07] LABS: RBC,BODY FLUID 1500 cells/uL
[2020-12-06 20:12] LABS: LYMPHOCYTES,BODY FLUID 41 %; MONO/MACROPHG,BODY FLUID 47 %; NEUTROPHILS,BODY FLUID 1 %; OTHER CELLS,BODY FLUID 11 %
[2020-12-07] VITALS (8 sets, daily range): BP systolic 104–136; BP diastolic 66–82
[2020-12-07] MEDS: INSULIN REGULAR, HUMAN 100 UNIT/1 ML 3ML VIAL SQ SCH ×4 (01:07→18:11)
[2020-12-07] MEDS: LIDOCAINE 4% PATCH TP SCH (09:00)
[2020-12-07] MEDS: MULTIVITAMINS 5 ML LIQUID GT SCH (10:39)
[2020-12-07] MEDS: DOCUSATE SODIUM LIQD 100 MG/10 ML UDC PEG SCH ×2 (10:40→17:18)
[2020-12-07] MEDS: PYRIDOXINE HCL 50 MG TAB PO SCH (10:40)
[2020-12-07] MEDS: APIXABAN 5 MG TABLET PO SCH ×2 (10:40→17:18)
[2020-12-07] MEDS: INSULIN GLARGINE 100 UNITS/ML VIAL SQ SCH ×2 (10:41→21:55)
[2020-12-08] VITALS (9 sets, daily range): BP systolic 115–140; BP diastolic 72–84
[2020-12-08] MEDS: INSULIN REGULAR, HUMAN 100 UNIT/1 ML 3ML VIAL SQ SCH ×4 (00:15→18:19)
[2020-12-08] MEDS: ACETAMINOPHEN 325 MG/10 ML UDC NG PRN (01:28)
[2020-12-08] MEDS: ONDANSETRON HCL 4 MG ORAL DISINTEGRATING TAB PO PRN ×3 (05:56→21:00)
[2020-12-08] MEDS: LIDOCAINE 4% PATCH TP SCH (09:00)
[2020-12-08] MEDS: APIXABAN 5 MG TABLET PO SCH ×2 (09:48→17:19)
[2020-12-08] MEDS: DOCUSATE SODIUM LIQD 100 MG/10 ML UDC PEG SCH ×2 (09:48→17:19)
[2020-12-08] MEDS: PYRIDOXINE HCL 50 MG TAB PO SCH (09:48)
[2020-12-08] MEDS: MULTIVITAMINS 5 ML LIQUID GT SCH (09:48)
[2020-12-08] MEDS: INSULIN GLARGINE 100 UNITS/ML VIAL SQ SCH ×2 (09:50→22:18)
[2020-12-08] MEDS ORDERED: SODIUM CHLORIDE 0.9% 1000ML 1,000 ML IV ONE (12:15)
[2020-12-08] MEDS: FAMOTIDINE 20 MG/2 ML VIAL IV SCH (17:19)
[2020-12-08] MEDS: ZOLPIDEM TARTRATE 5 MG TAB PO SCH (20:52)
[2020-12-09] VITALS (8 sets, daily range): BP systolic 114–129; BP diastolic 61–76
[2020-12-09] MEDS: INSULIN REGULAR, HUMAN 100 UNIT/1 ML 3ML VIAL SQ SCH ×4 (05:47→18:01)
[2020-12-09 05:51] LABS: BASOPHILS # (AUTO) 0.1 (0.0-0.1); BASOPHILS % 0.3 % (0.0-1.0); EOSINOPHILS # (AUTO) 0.1 (0.0-0.4); EOSINOPHILS % 0.5 % (0.0-6.0); HEMATOCRIT 35.7 % (34.2-44.1); HEMOGLOBIN 10.5 g/dL (12.0-16.0); LYMPHOCYTES # (AUTO) 1.9 (1.0-3.2); LYMPHOCYTES % 10.3 % (18.0-39.1); MEAN CORPUSCULAR HEMOGLOBIN 24.2 pg (28-32); MEAN CORPUSCULAR HGB CONC 29.4 g/dL (31-35); MEAN CORPUSCULAR VOLUME 82.3 fL (81-99); MONOCYTES % 5.2 % (4.4-11.3); NEUTROPHILS % 82.8 % (38.7-80.0); PLATELET COUNT 452 x10e3/uL (140-360); RED BLOOD COUNT 4.34 x10e6/uL (3.6-5.1); RED CELL DISTRIBUTION WIDTH 17.2 % (11.7-14.4)
[2020-12-09 05:56] LABS: ALANINE AMINOTRANSFERASE 23 IU/L (0-55); ALBUMIN 1.7 g/dL (3.5-5.0); ALBUMIN/GLOBULIN RATIO 0.4 (0.8-2.0); ALKALINE PHOSPHATASE 179 IU/L (40-150); ANION GAP 10.6 mmol/L (8-16); BLOOD UREA NITROGEN 20 mg/dL (7-26); BUN/CREATININE RATIO 56 (6-25); CALCIUM 8.2 mg/dL (8.4-10.2); CHLORIDE 83 mmol/L (98-107); CREATININE, SERUM 0.36 mg/dL (0.57-1.11); EST GLOMERULAR FILTRATION RATE > 60 ML/MIN (60-); GLUCOSE 133 mg/dL (74-118); POTASSIUM 4.6 mmol/L (3.5-5.1); SODIUM 130 mmol/L (136-145)
[2020-12-09 05:57] LABS: CARBON DIOXIDE 41 mmol/L (22-29)
[2020-12-09] MEDS: ONDANSETRON HCL 4 MG ORAL DISINTEGRATING TAB PO PRN (06:33)
[2020-12-09] MEDS: DOCUSATE SODIUM LIQD 100 MG/10 ML UDC PEG SCH ×2 (09:00→17:00)
[2020-12-09] MEDS: FAMOTIDINE 20 MG/2 ML VIAL IV SCH ×2 (09:05→17:17)
[2020-12-09] MEDS: MULTIVITAMINS 5 ML LIQUID GT SCH (09:05)
[2020-12-09] MEDS: PYRIDOXINE HCL 50 MG TAB PO SCH (09:06)
[2020-12-09] MEDS: APIXABAN 5 MG TABLET PO SCH ×2 (09:06→17:17)
[2020-12-09] MEDS: LIDOCAINE 4% PATCH TP SCH (09:07)
[2020-12-09] MEDS: INSULIN GLARGINE 100 UNITS/ML VIAL SQ SCH ×2 (10:06→21:00)
[2020-12-09] MEDS ORDERED: ONDANSETRON HCL INJ 2MG/ML 2ML 2 MG/ML VIAL IV STA (10:40)
[2020-12-09] MEDS ORDERED: ONDANSETRON HCL INJ 2MG/ML 2ML 8 MG in SODIUM CHLORIDE 0.9% 50ML 50 ML IV ONE (11:00)
[2020-12-09] MEDS: PANTOPRAZOLE 40 MG 10ML VIAL IV SCH (12:31)
[2020-12-09] MEDS: ONDANSETRON HCL INJ 2MG/ML 2ML 2 MG/ML VIAL IV PRN ×2 (14:12→22:06)
[2020-12-09] MEDS: ZOLPIDEM TARTRATE 5 MG TAB PO SCH (22:01)
[2020-12-10] VITALS (8 sets, daily range): BP systolic 114–130; BP diastolic 70–77
[2020-12-10] MEDS ORDERED: TRAZODONE HCL 50 MG TAB PO ONE (01:00)
[2020-12-10 03:08] LABS: CLARITY,URINE SL CLOUDY (CLEAR); COLOR,URINE AMBER (YELLOW); KETONES,URINE TRACE (NEGATIVE); LEUKOCYTE ESTERASE ,URINE NEGATIVE (NEGATIVE); NITRITE,URINE NEGATIVE (NEGATIVE); PROTEIN,URINE DIPSTICK 1+ (NEGATIVE); URINE UROBILINOGEN 2 mg/dL (0.2 - 1)
[2020-12-10 03:13] LABS: BACTERIA,URINE MODERATE /HPF; RBC,URINE 0-5 /HPF (0-5); WBC,URINE (MAN) 0-5 /HPF (0-5); YEAST,URINE MANY
[2020-12-10 03:14] LABS: EPITHELIAL CELLS,URINE FEW /LPF; MUCUS,URINE FEW (RARE)
[2020-12-10 05:08] LABS: BASOPHILS # (AUTO) 0.1 (0.0-0.1); BASOPHILS % 0.3 % (0.0-1.0); EOSINOPHILS % 0.1 % (0.0-6.0); HEMATOCRIT 34.9 % (34.2-44.1); HEMOGLOBIN 10.6 g/dL (12.0-16.0); LYMPHOCYTES # (AUTO) 1.3 (1.0-3.2); LYMPHOCYTES % 7.2 % (18.0-39.1); MEAN CORPUSCULAR HEMOGLOBIN 24.7 pg (28-32); MEAN CORPUSCULAR HGB CONC 30.4 g/dL (31-35); MEAN CORPUSCULAR VOLUME 81.2 fL (81-99); MONOCYTES % 5.3 % (4.4-11.3); NEUTROPHILS # (AUTO) 15.9 (2.1-6.9); NEUTROPHILS % 86.2 % (38.7-80.0); PLATELET COUNT 505 x10e3/uL (140-360); RED CELL DISTRIBUTION WIDTH 17.4 % (11.7-14.4)
[2020-12-10 05:36] LABS: AMYLASE 55 U/L (25-125); LIPASE 18 U/L (8-78)
[2020-12-10] MEDS: INSULIN REGULAR, HUMAN 100 UNIT/1 ML 3ML VIAL SQ SCH ×4 (06:00→17:59)
[2020-12-10] MEDS: ONDANSETRON HCL INJ 2MG/ML 2ML 2 MG/ML VIAL IV PRN ×2 (06:55→11:00)
[2020-12-10] MEDS: SIMETHICONE 80 MG CHEW PO PRN ×2 (09:00→15:01)
[2020-12-10] MEDS: FAMOTIDINE 20 MG/2 ML VIAL IV SCH ×2 (09:07→16:10)
[2020-12-10] MEDS: MULTIVITAMINS 5 ML LIQUID GT SCH (09:08)
[2020-12-10] MEDS: PANTOPRAZOLE 40 MG 10ML VIAL IV SCH (09:08)
[2020-12-10] MEDS: PYRIDOXINE HCL 50 MG TAB PO SCH (09:09)
[2020-12-10] MEDS: APIXABAN 5 MG TABLET PO SCH ×2 (09:09→16:11)
[2020-12-10] MEDS: INSULIN GLARGINE 100 UNITS/ML VIAL SQ SCH ×2 (09:10→21:43)
[2020-12-10] MEDS: LIDOCAINE 4% PATCH TP SCH (09:26)
[2020-12-10] MEDS: DOCUSATE SODIUM LIQD 100 MG/10 ML UDC PEG SCH ×2 (09:26→16:11)
[2020-12-10] MEDS: ZOLPIDEM TARTRATE 5 MG TAB PO SCH (17:00)
[2020-12-10] MEDS ORDERED: SCOPOLAMINE 1.5 MG PATCH TOP SCH (17:00)
[2020-12-10] MEDS: TRAZODONE HCL 50 MG TAB PO SCH (21:17)
[2020-12-11] VITALS (8 sets, daily range): BP systolic 108–128; BP diastolic 69–83
[2020-12-11] MEDS ORDERED: BISACODYL 5 MG TAB EC PO ONE ×2 (00:30)
[2020-12-11] MEDS: INSULIN REGULAR, HUMAN 100 UNIT/1 ML 3ML VIAL SQ SCH ×4 (05:43→18:00)
[2020-12-11 09:14] LABS: BASOPHILS % 0.3 % (0.0-1.0); EOSINOPHILS # (AUTO) 0.1 (0.0-0.4); EOSINOPHILS % 0.4 % (0.0-6.0); HEMATOCRIT 33.5 % (34.2-44.1); HEMOGLOBIN 10.1 g/dL (12.0-16.0); LYMPHOCYTES % 6.7 % (18.0-39.1); MEAN CORPUSCULAR HEMOGLOBIN 24.6 pg (28-32); MEAN CORPUSCULAR HGB CONC 30.1 g/dL (31-35); MEAN CORPUSCULAR VOLUME 81.5 fL (81-99); MONOCYTES # (AUTO) 1.1 (0.2-0.8); MONOCYTES % 7.2 % (4.4-11.3); NEUTROPHILS # (AUTO) 12.6 (2.1-6.9); NEUTROPHILS % 84.6 % (38.7-80.0); PLATELET COUNT 547 x10e3/uL (140-360); RED BLOOD COUNT 4.11 x10e6/uL (3.6-5.1); RED CELL DISTRIBUTION WIDTH 17.4 % (11.7-14.4)
[2020-12-11] MEDS: FAMOTIDINE 20 MG/2 ML VIAL IV SCH ×2 (09:30→18:00)
[2020-12-11] MEDS: PYRIDOXINE HCL 50 MG TAB PO SCH (09:30)
[2020-12-11] MEDS: DOCUSATE SODIUM LIQD 100 MG/10 ML UDC PEG SCH ×2 (09:30→18:00)
[2020-12-11] MEDS: PANTOPRAZOLE 40 MG 10ML VIAL IV SCH (09:30)
[2020-12-11] MEDS: APIXABAN 5 MG TABLET PO SCH ×2 (09:30→18:00)
[2020-12-11] MEDS: MULTIVITAMINS 5 ML LIQUID GT SCH (09:30)
[2020-12-11] MEDS: LIDOCAINE 4% PATCH TP SCH (09:31)
[2020-12-11] MEDS: INSULIN GLARGINE 100 UNITS/ML VIAL SQ SCH ×2 (09:34→20:47)
[2020-12-11] MEDS ORDERED: CITRATE OF MAGNESIA 300ML BOTTLE PO ONE (10:15)
[2020-12-11] MEDS: ZOLPIDEM TARTRATE 5 MG TAB PO SCH (21:00)
[2020-12-11] MEDS: TRAZODONE HCL 50 MG TAB PO SCH (21:00)
[2020-12-12] VITALS (8 sets, daily range): BP systolic 103–134; BP diastolic 74–89
[2020-12-12] MEDS ORDERED: BISACODYL 10 MG SUPP PR ONE (01:45)
[2020-12-12] MEDS ORDERED: CITRATE OF MAGNESIA 300ML BOTTLE PO ONE ×2 (05:00→07:00)
[2020-12-12] MEDS: INSULIN REGULAR, HUMAN 100 UNIT/1 ML 3ML VIAL SQ SCH ×5 (06:00→21:35)
[2020-12-12] MEDS: ONDANSETRON HCL INJ 2MG/ML 2ML 2 MG/ML VIAL IV PRN (07:23)
[2020-12-12] MEDS: LIDOCAINE 4% PATCH TP SCH (09:34)
[2020-12-12] MEDS: DOCUSATE SODIUM LIQD 100 MG/10 ML UDC PEG SCH ×2 (09:34→17:01)
[2020-12-12] MEDS: PANTOPRAZOLE 40 MG 10ML VIAL IV SCH (09:34)
[2020-12-12] MEDS: APIXABAN 5 MG TABLET PO SCH ×2 (09:34→17:01)
[2020-12-12] MEDS: PYRIDOXINE HCL 50 MG TAB PO SCH (09:34)
[2020-12-12] MEDS: FAMOTIDINE 20 MG/2 ML VIAL IV SCH ×2 (09:34→17:00)
[2020-12-12] MEDS: MULTIVITAMINS 5 ML LIQUID GT SCH (09:34)
[2020-12-12] MEDS: INSULIN GLARGINE 100 UNITS/ML VIAL SQ SCH ×2 (09:35→21:00)
[2020-12-12] MEDS ORDERED: SODIUM CHLORIDE 0.9% 1000ML 1,000 ML IV ONE (10:15)
[2020-12-12] MEDS ORDERED: ONDANSETRON HCL INJ 2MG/ML 2ML 2 MG/ML VIAL IV PRN (10:45)
[2020-12-12] MEDS: SIMETHICONE 80 MG CHEW PO PRN (11:49)
[2020-12-12] MEDS: TRAMADOL HCL 50 MG TAB PO PRN (11:49)
[2020-12-12 15:41] LABS: ALBUMIN 1.8 g/dL (3.5-5.0); BILIRUBIN,DIRECT 0.2 mg/dL (0.0-0.5)
[2020-12-12] MEDS: TRAZODONE HCL 50 MG TAB PO SCH (21:00)
[2020-12-12] MEDS: ZOLPIDEM TARTRATE 5 MG TAB PO SCH (21:00)
[2020-12-13] VITALS (7 sets, daily range): BP systolic 107–143; BP diastolic 56–91
[2020-12-13 05:39] LABS: BASOPHILS % 0.3 % (0.0-1.0); EOSINOPHILS % 0.2 % (0.0-6.0); HEMATOCRIT 36.7 % (34.2-44.1); HEMOGLOBIN 11.2 g/dL (12.0-16.0); LYMPHOCYTES # (AUTO) 1.1 (1.0-3.2); LYMPHOCYTES % 9.2 % (18.0-39.1); MEAN CORPUSCULAR HEMOGLOBIN 24.3 pg (28-32); MEAN CORPUSCULAR HGB CONC 30.5 g/dL (31-35); MEAN CORPUSCULAR VOLUME 79.8 fL (81-99); MONOCYTES % 8.2 % (4.4-11.3); NEUTROPHILS # (AUTO) 9.7 (2.1-6.9); NEUTROPHILS % 81.6 % (38.7-80.0); PLATELET COUNT 488 x10e3/uL (140-360)
[2020-12-13] MEDS: INSULIN REGULAR, HUMAN 100 UNIT/1 ML 3ML VIAL SQ SCH ×3 (05:53→18:00)
[2020-12-13 08:24] LABS: ANION GAP 17.5 mmol/L (8-16); BLOOD UREA NITROGEN 31 mg/dL (7-26); BUN/CREATININE RATIO 65 (6-25); CALCIUM 8.6 mg/dL (8.4-10.2); CARBON DIOXIDE 35 mmol/L (22-29); CHLORIDE 82 mmol/L (98-107); CREATININE, SERUM 0.48 mg/dL (0.57-1.11); EST GLOMERULAR FILTRATION RATE > 60 ML/MIN (60-); GLUCOSE 135 mg/dL (74-118); SODIUM 129 mmol/L (136-145)
[2020-12-13 08:30] LABS: POTASSIUM 5.5 mmol/L (3.5-5.1)
[2020-12-13] MEDS: APIXABAN 5 MG TABLET PO SCH ×2 (09:00→17:00)
[2020-12-13] MEDS: FAMOTIDINE 20 MG/2 ML VIAL IV SCH ×2 (09:00→17:00)
[2020-12-13] MEDS: MULTIVITAMINS 5 ML LIQUID GT SCH ×2 (09:00→13:30)
[2020-12-13] MEDS: INSULIN GLARGINE 100 UNITS/ML VIAL SQ SCH ×2 (09:00→21:31)
[2020-12-13] MEDS: PANTOPRAZOLE 40 MG 10ML VIAL IV SCH (09:00)
[2020-12-13] MEDS: LIDOCAINE 4% PATCH TP SCH (09:00)
[2020-12-13] MEDS: PYRIDOXINE HCL 50 MG TAB PO SCH ×2 (09:00→13:00)
[2020-12-13] MEDS: DOCUSATE SODIUM LIQD 100 MG/10 ML UDC PEG SCH ×2 (09:00→17:00)
[2020-12-13] MEDS: ACETAMINOPHEN 325 MG/10 ML UDC NG PRN (13:40)
[2020-12-13] MEDS ORDERED: SODIUM CHLORIDE 0.9% 1000ML 1,000 ML IV ONE (15:45)
[2020-12-13] MEDS: ZOLPIDEM TARTRATE 5 MG TAB PO SCH (21:00)
[2020-12-13] MEDS: TRAZODONE HCL 50 MG TAB PO SCH (21:31)
[2020-12-14] VITALS (8 sets, daily range): BP systolic 111–135; BP diastolic 72–85
[2020-12-14] MEDS: INSULIN REGULAR, HUMAN 100 UNIT/1 ML 3ML VIAL SQ SCH ×4 (06:00→17:46)
[2020-12-14 06:53] LABS: % IRON SATURATION 9 % (15-50); IRON 17 ug/dL (50-170); TOTAL IRON BINDING CAPACITY 188 ug/dL (261-478); TRANSFERRIN 134 mg/dL (180-382)
[2020-12-14] MEDS: DOCUSATE SODIUM LIQD 100 MG/10 ML UDC PEG SCH ×2 (09:00→17:00)
[2020-12-14] MEDS: LIDOCAINE 4% PATCH TP SCH (09:00)
[2020-12-14] MEDS: INSULIN GLARGINE 100 UNITS/ML VIAL SQ SCH ×2 (09:00→21:00)
[2020-12-14] MEDS: PANTOPRAZOLE 40 MG 10ML VIAL IV SCH (09:00)
[2020-12-14] MEDS: APIXABAN 5 MG TABLET PO SCH ×2 (09:00→17:00)
[2020-12-14] MEDS ORDERED: LACTATED RINGER'S 1,000 ML INJ ONE (09:15)
[2020-12-14] MEDS: FAMOTIDINE 20 MG/2 ML VIAL IV SCH ×2 (10:09→17:00)
[2020-12-14] MEDS ORDERED: MORPHINE SULFATE INJ 2 MG/ML SYR IV ONE (12:30)
[2020-12-14] MEDS: DEXTROSE 5%/0.45% SOD CHL 1,000 ML IV SCH (15:20)
[2020-12-14] MEDS: TRAZODONE HCL 50 MG TAB PO SCH (21:00)
[2020-12-14] MEDS: ZOLPIDEM TARTRATE 5 MG TAB PO SCH (21:00)
[2020-12-15] VITALS (7 sets, daily range): BP systolic 114–126; BP diastolic 63–80
[2020-12-15] MEDS: INSULIN REGULAR, HUMAN 100 UNIT/1 ML 3ML VIAL SQ SCH
[2020-12-15] MEDS ORDERED: BISACODYL 5 MG TAB EC PO ONE ×2 (03:15→03:45)
[2020-12-15] MEDS ORDERED: METOCLOPRAMIDE HCL 10 MG/2ML VIAL IV STA (03:53)
[2020-12-15] MEDS: DEXTROSE 5%/0.45% SOD CHL 1,000 ML IV SCH ×2 (04:12→21:37)
[2020-12-15] MEDS: METRONIDAZOLE 500MG/NS 100ML 100 ML IV SCH ×4 (05:11→23:51)
[2020-12-15] MEDS: METOCLOPRAMIDE HCL 10 MG/2ML VIAL IV SCH ×4 (06:04→23:51)
[2020-12-15] MEDS: PANTOPRAZOLE 40 MG 10ML VIAL IV SCH (08:54)
[2020-12-15] MEDS: FAMOTIDINE 20 MG/2 ML VIAL IV SCH ×2 (08:54→17:00)
[2020-12-15] MEDS: MULTIVITAMINS 5 ML LIQUID GT SCH (09:00)
[2020-12-15] MEDS: PYRIDOXINE HCL 50 MG TAB PO SCH (09:00)
[2020-12-15] MEDS: DOCUSATE SODIUM LIQD 100 MG/10 ML UDC PEG SCH ×2 (09:00→16:48)
[2020-12-15] MEDS: APIXABAN 5 MG TABLET PO SCH ×2 (09:00→16:48)
[2020-12-15] MEDS: IRON SUCROSE 100 MG in SODIUM CHLORIDE 0.9% 100 ML 100 ML IV SCH (10:00)
[2020-12-15] MEDS: LIDOCAINE 4% PATCH TP SCH (12:30)
[2020-12-15] MEDS: INSULIN GLARGINE 100 UNITS/ML VIAL SQ SCH ×2 (12:37→21:40)
[2020-12-15] MEDS: TRAZODONE HCL 50 MG TAB PO SCH (21:35)
[2020-12-16] VITALS (9 sets, daily range): BP systolic 102–118; BP diastolic 65–83
[2020-12-16] MEDS: TRAMADOL HCL 50 MG TAB PO PRN (01:42)
[2020-12-16 05:20] LABS: BASOPHILS # (AUTO) 0.1 (0.0-0.1); BASOPHILS % 0.3 % (0.0-1.0); EOSINOPHILS % 0.3 % (0.0-6.0); HEMATOCRIT 34.2 % (34.2-44.1); HEMOGLOBIN 10.4 g/dL (12.0-16.0); LYMPHOCYTES % 6.7 % (18.0-39.1); MEAN CORPUSCULAR HEMOGLOBIN 24.2 pg (28-32); MEAN CORPUSCULAR HGB CONC 30.4 g/dL (31-35); MEAN CORPUSCULAR VOLUME 79.7 fL (81-99); MONOCYTES # (AUTO) 0.9 (0.2-0.8); MONOCYTES % 5.7 % (4.4-11.3); NEUTROPHILS # (AUTO) 13.1 (2.1-6.9); NEUTROPHILS % 86.1 % (38.7-80.0); PLATELET COUNT 451 x10e3/uL (140-360); RED BLOOD COUNT 4.29 x10e6/uL (3.6-5.1); RED CELL DISTRIBUTION WIDTH 17.5 % (11.7-14.4)
[2020-12-16] MEDS: METRONIDAZOLE 500MG/NS 100ML 100 ML IV SCH ×3 (05:43→17:29)
[2020-12-16] MEDS: METOCLOPRAMIDE HCL 10 MG/2ML VIAL IV SCH ×3 (05:43→17:29)
[2020-12-16] MEDS: DEXTROSE 5%/0.45% SOD CHL 1,000 ML IV SCH ×3 (05:43→22:43)
[2020-12-16 05:44] LABS: ALANINE AMINOTRANSFERASE 13 IU/L (0-55); ALBUMIN 1.7 g/dL (3.5-5.0); ALBUMIN/GLOBULIN RATIO 0.4 (0.8-2.0); ALKALINE PHOSPHATASE 173 IU/L (40-150); ANION GAP 11.6 mmol/L (8-16); BLOOD UREA NITROGEN 34 mg/dL (7-26); BUN/CREATININE RATIO 62 (6-25); CALCIUM 8.1 mg/dL (8.4-10.2); CARBON DIOXIDE 32 mmol/L (22-29); CHLORIDE 86 mmol/L (98-107); CREATININE, SERUM 0.55 mg/dL (0.57-1.11); EST GLOMERULAR FILTRATION RATE > 60 ML/MIN (60-); GLUCOSE 185 mg/dL (74-118); POTASSIUM 4.6 mmol/L (3.5-5.1); SODIUM 125 mmol/L (136-145)
[2020-12-16] MEDS: MULTIVITAMINS 5 ML LIQUID GT SCH (08:40)
[2020-12-16] MEDS: FAMOTIDINE 20 MG/2 ML VIAL IV SCH ×2 (08:40→16:49)
[2020-12-16] MEDS: DOCUSATE SODIUM LIQD 100 MG/10 ML UDC PEG SCH ×2 (08:40→16:49)
[2020-12-16] MEDS: APIXABAN 5 MG TABLET PO SCH ×2 (08:41→16:49)
[2020-12-16] MEDS: PYRIDOXINE HCL 50 MG TAB PO SCH (08:41)
[2020-12-16] MEDS: INSULIN GLARGINE 100 UNITS/ML VIAL SQ SCH ×2 (08:41→21:00)
[2020-12-16] MEDS: PANTOPRAZOLE 40 MG 10ML VIAL IV SCH (09:00)
[2020-12-16] MEDS: LIDOCAINE 4% PATCH TP SCH (09:00)
[2020-12-16] MEDS: IRON SUCROSE 100 MG in SODIUM CHLORIDE 0.9% 100 ML 100 ML IV SCH (10:08)
[2020-12-16] MEDS ORDERED: ALBUMIN 25% 12.5GM 50ML 100 ML IV ONE (14:01)
[2020-12-16 15:29] LABS: BODY FLUID APPEARANCE CLEAR; BODY FLUID COLOR YELLOW; BODY FLUID TYPE PERITONEAL
[2020-12-16 15:30] LABS: RBC,BODY FLUID 1500 cells/uL; WBC,BODY FLUID 395 cells/uL
[2020-12-16 16:38] LABS: LYMPHOCYTES,BODY FLUID 77 %; MONO/MACROPHG,BODY FLUID 15 %; NEUTROPHILS,BODY FLUID 2 %; OTHER CELLS,BODY FLUID 6 %
[2020-12-16] MEDS: TRAZODONE HCL 50 MG TAB PO SCH (21:00)
[2020-12-17] VITALS (9 sets, daily range): BP systolic 96–134; BP diastolic 56–75
[2020-12-17] MEDS: METRONIDAZOLE 500MG/NS 100ML 100 ML IV SCH ×4 (00:41→17:53)
[2020-12-17] MEDS: METOCLOPRAMIDE HCL 10 MG/2ML VIAL IV SCH ×4 (00:41→17:53)
[2020-12-17] MEDS: DEXTROSE 5%/0.45% SOD CHL 1,000 ML IV SCH (06:27)
[2020-12-17] MEDS: INSULIN GLARGINE 100 UNITS/ML VIAL SQ SCH ×2 (09:00→20:59)
[2020-12-17] MEDS: LIDOCAINE 4% PATCH TP SCH (09:16)
[2020-12-17] MEDS: PYRIDOXINE HCL 50 MG TAB PO SCH (09:16)
[2020-12-17] MEDS: MULTIVITAMINS 5 ML LIQUID GT SCH (09:16)
[2020-12-17] MEDS: APIXABAN 5 MG TABLET PO SCH ×2 (09:16→17:53)
[2020-12-17] MEDS: FAMOTIDINE 20 MG/2 ML VIAL IV SCH ×2 (09:16→17:53)
[2020-12-17] MEDS: PANTOPRAZOLE 40 MG 10ML VIAL IV SCH (09:16)
[2020-12-17] MEDS: DOCUSATE SODIUM LIQD 100 MG/10 ML UDC PEG SCH ×2 (09:16→17:53)
[2020-12-17] MEDS: IRON SUCROSE 100 MG in SODIUM CHLORIDE 0.9% 100 ML 100 ML IV SCH (09:20)
[2020-12-17] MEDS: TRAZODONE HCL 50 MG TAB PO SCH (21:00)
[2020-12-18] VITALS (8 sets, daily range): BP systolic 109–121; BP diastolic 69–90
[2020-12-18] MEDS: METRONIDAZOLE 500MG/NS 100ML 100 ML IV SCH ×5 (00:30→23:22)
[2020-12-18] MEDS: METOCLOPRAMIDE HCL 10 MG/2ML VIAL IV SCH ×5 (00:30→23:22)
[2020-12-18] MEDS: DEXTROSE 5%/0.45% SOD CHL 1,000 ML IV SCH (03:44)
[2020-12-18] MEDS: DOCUSATE SODIUM LIQD 100 MG/10 ML UDC PEG SCH ×2 (09:00→16:31)
[2020-12-18] MEDS: IRON SUCROSE 100 MG in SODIUM CHLORIDE 0.9% 100 ML 100 ML IV SCH (09:16)
[2020-12-18] MEDS: LIDOCAINE 4% PATCH TP SCH (09:16)
[2020-12-18] MEDS: APIXABAN 5 MG TABLET PO SCH ×2 (09:16→16:51)
[2020-12-18] MEDS: FAMOTIDINE 20 MG/2 ML VIAL IV SCH ×2 (09:16→16:51)
[2020-12-18] MEDS: PANTOPRAZOLE 40 MG 10ML VIAL IV SCH (09:16)
[2020-12-18] MEDS: MULTIVITAMINS 5 ML LIQUID GT SCH (09:16)
[2020-12-18] MEDS: INSULIN GLARGINE 100 UNITS/ML VIAL SQ SCH ×2 (09:35→20:55)
[2020-12-18] MEDS ORDERED: FUROSEMIDE INJ 10 MG/ML 2 ML VIAL IV NR (15:00)
[2020-12-18] MEDS: TRAZODONE HCL 50 MG TAB PO SCH (20:51)
[2020-12-19] VITALS (9 sets, daily range): BP systolic 87–107; BP diastolic 49–74
[2020-12-19] MEDS: METOCLOPRAMIDE HCL 10 MG/2ML VIAL IV SCH ×4 (05:09→23:59)
[2020-12-19 05:16] LABS: BASOPHILS # (AUTO) 0.1 (0.0-0.1); BASOPHILS % 0.3 % (0.0-1.0); EOSINOPHILS % 0.1 % (0.0-6.0); HEMATOCRIT 38.9 % (34.2-44.1); HEMOGLOBIN 11.7 g/dL (12.0-16.0); LYMPHOCYTES % 5.1 % (18.0-39.1); MEAN CORPUSCULAR HEMOGLOBIN 24.3 pg (28-32); MEAN CORPUSCULAR HGB CONC 30.1 g/dL (31-35); MEAN CORPUSCULAR VOLUME 80.9 fL (81-99); MONOCYTES % 5.3 % (4.4-11.3); NEUTROPHILS # (AUTO) 16.8 (2.1-6.9); NEUTROPHILS % 87.4 % (38.7-80.0); PLATELET COUNT 466 x10e3/uL (140-360); RED BLOOD COUNT 4.81 x10e6/uL (3.6-5.1); RED CELL DISTRIBUTION WIDTH 18.1 % (11.7-14.4)
[2020-12-19 05:37] LABS: ALANINE AMINOTRANSFERASE 10 IU/L (0-55); ALBUMIN 1.8 g/dL (3.5-5.0); ALBUMIN/GLOBULIN RATIO 0.5 (0.8-2.0); ALKALINE PHOSPHATASE 246 IU/L (40-150); ANION GAP 14.1 mmol/L (8-16); BLOOD UREA NITROGEN 23 mg/dL (7-26); BUN/CREATININE RATIO 42 (6-25); CALCIUM 8.1 mg/dL (8.4-10.2); CARBON DIOXIDE 27 mmol/L (22-29); CHLORIDE 91 mmol/L (98-107); CREATININE, SERUM 0.55 mg/dL (0.57-1.11); EST GLOMERULAR FILTRATION RATE > 60 ML/MIN (60-); GLUCOSE 252 mg/dL (74-118); MAGNESIUM 1.6 MG/DL (1.3-2.1); POTASSIUM 5.1 mmol/L (3.5-5.1); SODIUM 127 mmol/L (136-145)
[2020-12-19] MEDS: MULTIVITAMINS 5 ML LIQUID GT SCH (08:40)
[2020-12-19] MEDS: PANTOPRAZOLE 40 MG 10ML VIAL IV SCH (08:40)
[2020-12-19] MEDS: APIXABAN 5 MG TABLET PO SCH ×2 (08:40→16:45)
[2020-12-19] MEDS: FAMOTIDINE 20 MG/2 ML VIAL IV SCH ×2 (08:40→16:45)
[2020-12-19] MEDS: LIDOCAINE 4% PATCH TP SCH (08:40)
[2020-12-19] MEDS: DOCUSATE SODIUM LIQD 100 MG/10 ML UDC PEG SCH ×2 (08:40→16:41)
[2020-12-19] MEDS: INSULIN GLARGINE 100 UNITS/ML VIAL SQ SCH ×2 (09:06→20:35)
[2020-12-19] MEDS: TRAZODONE HCL 50 MG TAB PO SCH (20:44)
[2020-12-19] MEDS: MEROPENEM 1GM 100 ML IV SCH (21:05)
[2020-12-20] VITALS (9 sets, daily range): BP systolic 78–114; BP diastolic 57–75
[2020-12-20] MEDS: MEROPENEM 1GM 100 ML IV SCH ×3 (05:11→19:54)
[2020-12-20] MEDS: METOCLOPRAMIDE HCL 10 MG/2ML VIAL IV SCH ×4 (05:11→22:28)
[2020-12-20 06:01] LABS: BASOPHILS # (AUTO) 0.1 (0.0-0.1); BASOPHILS % 0.6 % (0.0-1.0); HEMATOCRIT 33.5 % (34.2-44.1); HEMOGLOBIN 9.7 g/dL (12.0-16.0); LYMPHOCYTES # (AUTO) 0.7 (1.0-3.2); LYMPHOCYTES % 3.1 % (18.0-39.1); MEAN CORPUSCULAR HEMOGLOBIN 24.4 pg (28-32); MEAN CORPUSCULAR VOLUME 84.2 fL (81-99); MONOCYTES # (AUTO) 1.1 (0.2-0.8); MONOCYTES % 4.8 % (4.4-11.3); NEUTROPHILS # (AUTO) 20.3 (2.1-6.9); NEUTROPHILS % 88.9 % (38.7-80.0); PLATELET COUNT 433 x10e3/uL (140-360); RED BLOOD COUNT 3.98 x10e6/uL (3.6-5.1); RED CELL DISTRIBUTION WIDTH 18.7 % (11.7-14.4)
[2020-12-20] MEDS ORDERED: SODIUM CHLORIDE 0.9% 1000ML 1,000 ML ONE (06:22)
[2020-12-20 06:36] LABS: ABG PCO2 55 mmHg (35-45); ABG PH 7.35 (7.35-7.45); ABG PO2 89 mmHg (80-105)
[2020-12-20 06:37] LABS: ABG HCO3 31 mmol/L (22-26); ABG TCO2 32
[2020-12-20] MEDS ORDERED: LACTATED RINGER'S 500 ML INJ ONE (06:45)
[2020-12-20 06:54] LABS: ALBUMIN 1.7 g/dL (3.5-5.0); ALBUMIN/GLOBULIN RATIO 0.5 (0.8-2.0); CALCIUM 8.5 mg/dL (8.4-10.2); CREATININE, SERUM 0.97 mg/dL (0.57-1.11)
[2020-12-20 06:59] LABS: BASOPHILS # (AUTO) 0.1 (0.0-0.1); BASOPHILS % 0.2 % (0.0-1.0); HEMATOCRIT 29.7 % (34.2-44.1); HEMOGLOBIN 8.8 g/dL (12.0-16.0); LYMPHOCYTES # (AUTO) 0.8 (1.0-3.2); LYMPHOCYTES % 3.5 % (18.0-39.1); MEAN CORPUSCULAR HEMOGLOBIN 24.5 pg (28-32); MEAN CORPUSCULAR HGB CONC 29.6 g/dL (31-35); MEAN CORPUSCULAR VOLUME 82.7 fL (81-99); MONOCYTES % 4.7 % (4.4-11.3); NEUTROPHILS # (AUTO) 19.1 (2.1-6.9); NEUTROPHILS % 88.9 % (38.7-80.0); PLATELET COUNT 434 x10e3/uL (140-360); RED BLOOD COUNT 3.59 x10e6/uL (3.6-5.1); RED CELL DISTRIBUTION WIDTH 18.4 % (11.7-14.4)
[2020-12-20] MEDS ORDERED: SODIUM CHLORIDE 0.9% 1000ML 1,000 ML IV ONE (07:00)
[2020-12-20 07:08] LABS: ANION GAP 15.9 mmol/L (8-16)
[2020-12-20 07:17] LABS: POTASSIUM 5.9 mmol/L (3.5-5.1)
[2020-12-20 07:46] LABS: LYMPHOCYTES % (MANUAL) 5 % (19-48); MONOCYTES % (MANUAL) 1 % (3.4-9.0); NEUTROPHILS % (MANUAL) 94 % (40-74)
[2020-12-20 07:47] LABS: ANISOCYTOSIS SLIGHT; HYPOCHROMASIA SLIGHT; PLATELET ESTIMATE ADEQUATE; PLATELET MORPHOLOGY COMMENT NORMAL; POLYCHROMASIA FEW; RBC MORPHOLOGY COMMENT NORMAL
[2020-12-20] MEDS ORDERED: ALBUMIN 25% 25GM 100ML 0.25 GM/ML BTL IV SCH (09:00)
[2020-12-20] MEDS ORDERED: SODIUM CHLORIDE 0.9% 500ML 500 ML IV ONE (09:00)
[2020-12-20] MEDS: PANTOPRAZOLE 40 MG 10ML VIAL IV SCH (10:03)
[2020-12-20] MEDS: MULTIVITAMINS 5 ML LIQUID GT SCH (10:03)
[2020-12-20] MEDS: FAMOTIDINE 20 MG/2 ML VIAL IV SCH ×2 (10:03→17:05)
[2020-12-20] MEDS: APIXABAN 5 MG TABLET PO SCH ×2 (10:04→17:05)
[2020-12-20] MEDS: DOCUSATE SODIUM LIQD 100 MG/10 ML UDC PEG SCH ×2 (10:04→16:46)
[2020-12-20] MEDS: LIDOCAINE 4% PATCH TP SCH (10:04)
[2020-12-20] MEDS: INSULIN GLARGINE 100 UNITS/ML VIAL SQ SCH ×2 (10:05→20:00)
[2020-12-20 11:47] LABS: ALBUMIN 2.6 g/dL (3.5-5.0); ALBUMIN/GLOBULIN RATIO 1.1 (0.8-2.0); ANION GAP 18.5 mmol/L (8-16); CALCIUM 8.6 mg/dL (8.4-10.2); CREATININE, SERUM 1.03 mg/dL (0.57-1.11); POTASSIUM 5.5 mmol/L (3.5-5.1)
[2020-12-20] MEDS ORDERED: SODIUM CHLORIDE 0.9% 1000ML 2,000 ML IV SCH (13:00)
[2020-12-20] MEDS ORDERED: SOD POLYSTYRENE SULFONATE SUSP 15 GM/60 ML BTL PO ONE ×2 (15:15→15:45)
[2020-12-20] MEDS: ALBUMIN 25% 25GM 100ML 0.25 GM/ML BTL IV SCH (17:46)
[2020-12-20] MEDS: TRAZODONE HCL 50 MG TAB PO SCH (19:54)
[2020-12-20] MEDS ORDERED: FUROSEMIDE INJ 10 MG/ML 4 ML VIAL IV SCH (21:00)
[2020-12-21] VITALS: BP 94/61
[2020-12-21] MEDS: ALBUMIN 25% 25GM 100ML 0.25 GM/ML BTL IV SCH (01:33)
== END 2020-12-21 06:10 | disposition expired | DRG 4 ==
LOC: ER 11:45 → ERHOLD 13:45 → MED/SURG3 14:10 → ICU 09-09 21:44 → COVIDICU 09-17 22:53 → MED/SURG2 11-08 16:23 → UNDODISIN 11-08 17:45 → IMCU 12-20 09:48
PROVIDERS: ADMIT Internal Medicine; ATTEND Internal Medicine
PROC: XW033E5 Introduction of Remdesivir Anti-infective into Peripheral Vein, Percutaneous Approach, New Technology Group 5 (ICD-10-PCS; 2020-09-06)
PROC: 8E0ZXY6 Isolation (ICD-10-PCS; 2020-09-06)
PROC: 3E0333Z Introduction of Anti-inflammatory into Peripheral Vein, Percutaneous Approach (ICD-10-PCS; 2020-09-07)
PROC: 02HV33Z Insertion of Infusion Device into Superior Vena Cava, Percutaneous Approach (ICD-10-PCS; 2020-09-10)
PROC: B548ZZA Ultrasonography of Superior Vena Cava, Guidance (ICD-10-PCS; 2020-09-10)
PROC: 02HV33Z Insertion of Infusion Device into Superior Vena Cava, Percutaneous Approach (ICD-10-PCS; 2020-09-10)
PROC: B548ZZA Ultrasonography of Superior Vena Cava, Guidance (ICD-10-PCS; 2020-09-10)
PROC: 5A1955Z Respiratory Ventilation, Greater than 96 Consecutive Hours (ICD-10-PCS; principal; 2020-09-14)
PROC: 0BH18EZ Insertion of Endotracheal Airway into Trachea, Via Natural or Artificial Opening Endoscopic (ICD-10-PCS; 2020-09-14)
PROC: 03HY32Z Insertion of Monitoring Device into Upper Artery, Percutaneous Approach (ICD-10-PCS; 2020-09-14)
PROC: 4A133B1 Monitoring of Arterial Pressure, Peripheral, Percutaneous Approach (ICD-10-PCS; 2020-09-14)
PROC: 4A133J1 Monitoring of Arterial Pulse, Peripheral, Percutaneous Approach (ICD-10-PCS; 2020-09-14)
PROC: 3E043XZ Introduction of Vasopressor into Central Vein, Percutaneous Approach (ICD-10-PCS; 2020-09-15)
PROC: 4A133B1 Monitoring of Arterial Pressure, Peripheral, Percutaneous Approach (ICD-10-PCS; 2020-09-17)
PROC: 03HY32Z Insertion of Monitoring Device into Upper Artery, Percutaneous Approach (ICD-10-PCS; 2020-09-17)
PROC: 4A133J1 Monitoring of Arterial Pulse, Peripheral, Percutaneous Approach (ICD-10-PCS; 2020-09-17)
PROC: 02HV33Z Insertion of Infusion Device into Superior Vena Cava, Percutaneous Approach (ICD-10-PCS; 2020-09-26)
PROC: B548ZZA Ultrasonography of Superior Vena Cava, Guidance (ICD-10-PCS; 2020-09-26)
PROC: 0B113F4 Bypass Trachea to Cutaneous with Tracheostomy Device, Percutaneous Approach (ICD-10-PCS; 2020-10-11)
PROC: 0DH63UZ Insertion of Feeding Device into Stomach, Percutaneous Approach (ICD-10-PCS; 2020-10-11)
PROC: 0W9B00Z Drainage of Left Pleural Cavity with Drainage Device, Open Approach (ICD-10-PCS; 2020-10-23)
PROC: 02HV33Z Insertion of Infusion Device into Superior Vena Cava, Percutaneous Approach (ICD-10-PCS; 2020-10-23)
PROC: B548ZZA Ultrasonography of Superior Vena Cava, Guidance (ICD-10-PCS; 2020-10-23)
PROC: 30243N1 Transfusion of Nonautologous Red Blood Cells into Central Vein, Percutaneous Approach (ICD-10-PCS; 2020-10-29)
PROC: 0BP1XFZ Removal of Tracheostomy Device from Trachea, External Approach (ICD-10-PCS; 2020-11-30)
PROC: 0W9G3ZZ Drainage of Peritoneal Cavity, Percutaneous Approach (ICD-10-PCS; 2020-12-06)
PROC: 0WBH3ZX Excision of Retroperitoneum, Percutaneous Approach, Diagnostic (ICD-10-PCS; 2020-12-16)
PROC: 0W9G3ZZ Drainage of Peritoneal Cavity, Percutaneous Approach (ICD-10-PCS; 2020-12-16)
PROC: 5A12012 Performance of Cardiac Output, Single, Manual (ICD-10-PCS; 2020-12-21)
DX: A41.89 Other specified sepsis (principal); U07.1 COVID-19; J12.82 Pneumonia due to coronavirus disease 2019; J15.9 Unspecified bacterial pneumonia; J80 Acute respiratory distress syndrome; G92 Toxic encephalopathy; E87.1 Hypo-osmolality and hyponatremia; C48.1 Malignant neoplasm of specified parts of peritoneum; C56.2 Malignant neoplasm of left ovary; J93.12 Secondary spontaneous pneumothorax; E44.0 Moderate protein-calorie malnutrition; I82.B11 Acute embolism and thrombosis of right subclavian vein; G62.81 Critical illness polyneuropathy; I50.30 Unspecified diastolic (congestive) heart failure; R18.0 Malignant ascites; R65.20 Severe sepsis without septic shock; I10 Essential (primary) hypertension; Z79.84 Long term (current) use of oral hypoglycemic drugs; E78.00 Pure hypercholesterolemia, unspecified; D72.810 Lymphocytopenia; Z82.49 Family history of ischemic heart disease and other diseases of the circulatory system; E88.09 Other disorders of plasma-protein metabolism, not elsewhere classified; D69.6 Thrombocytopenia, unspecified; D64.9 Anemia, unspecified; L30.4 Erythema intertrigo; E87.6 Hypokalemia; D50.0 Iron deficiency anemia secondary to blood loss (chronic); E66.9 Obesity, unspecified; R13.10 Dysphagia, unspecified; E11.65 Type 2 diabetes mellitus with hyperglycemia; E78.5 Hyperlipidemia, unspecified; B96.1 Klebsiella pneumoniae [K. pneumoniae] as the cause of diseases classified elsewhere; F41.9 Anxiety disorder, unspecified; K21.9 Gastro-esophageal reflux disease without esophagitis; E87.5 Hyperkalemia; I27.20 Pulmonary hypertension, unspecified; K74.60 Unspecified cirrhosis of liver; Z68.31 Body mass index [BMI] 31.0-31.9, adult
CPT/HCPCS: 31500; 36415; 36556; 36569; 36600; 49083; 49180; 70450; 70490; 71045; 71250; 71260; 74018; 74177; 74230; 74470; 76700; 76705; 76937; 76942; 77001; 78227; 80048; 80053; 80076; 80202; 81001; 82140; 82150; 82550; 82553; 82607; 82746; 82805; 82948; 83540; 83690; 83735; 83930; 84132; 84146; 84157; 84443; 84466; 84484; 85007; 85025; 85027; 85045; 85379; 85610; 85730; 86022; 86850; 86900; 86920; 87040; 87070; 87086; 87186; 87205; 88112; 88305; 88342; 89051; 93005; 93306; 93970; 94002; 94003; 94660; 95812; 96361; 96372; 97139; 99251; 99284; A9537; C1729; C1769; J0330; J0456; J0696; J1100; J1450; J1650; J1652; J1756; J1815; J1817; J1885; J1940; J2185; J2250; J2270; J2405; J2550; J2765; J2920; J2930; J2997; J3010; J3370; J3411; J3420; J3480; J7030; J7040; J7050; J7070; J7121; J7799; P9016; P9047; Q0162; Q9967; U0002